=== PATIENT | female | born 1940 | race Caucasian/White ===

== ENCOUNTER 2022-07-08 16:50 | Inpatient (IN) | payer OTHER, SELFPAY ==
[2022-07-08] VITALS (46 sets, daily range): BP systolic 132–199; BP diastolic 55–99; PULSE 62–88; RESP 12–38; TEMP 37.1; O2SAT 76–100; BMI 19.3
--- NOTE | 2022-07-08 17:06 | DI.CT.S_ITS ---
PROCEDURE: CT CERVICAL SPINE WO CON INDICATIONS: fall TECHNIQUE: Noncontrast 3 mm thick sections acquired from the skull base to the T4 level. Sagittal and coronal reformats were then constructed. For radiation dose reduction, the following was used: automated exposure control, adjustment of mA and/or kV according to patient size. COMPARISON: [facility], CT, CT FACIAL BONES WO CON, 07/08/2022, 17:11. [facility], CT, CT HEAD/BRAIN WO CON, 07/08/2022, 17:11. FINDINGS: Image quality: This examination is limited by involuntary motion artifact. Bones: No acute appearing fractures or dislocations. Chronic appearing anterior wedge deformities can be seen involving T1, T2, and T3, and T4, with a central compression deformity seen at T5. Visualized superior ribs are intact. There is moderate disc space narrowing seen at C3-C4 and C4-C5, with at least moderate disc space narrowing at C5-C6 and C6-C7. Focal degenerative change is seen involving the C1-C2 interface anteriorly. Soft tissues: Prevertebral soft tissues are normal in thickness. No paravertebral hematomas. No apical pneumothoraces. Atherosclerotic calcification is noted. IMPRESSION: No acute fractures are seen. Several chronic appearing fractures can be seen within the visualized upper thoracic spine. Dictated by: Eber Hill M.D. on 07/08/2022 at 17:05 Approved by: Eber Hill M.D. on 07/08/2022 at 17:08
--- NOTE | 2022-07-08 17:06 | DI.CT.S_ITS ---
PROCEDURE: CT FACIAL BONES WO CON INDICATIONS: fall TECHNIQUE: Noncontrast 2.5 mm thick axial images acquired from the mandible through the frontal sinuses, with coronal and sagittal reformatting. For radiation dose reduction, the following was used: automated exposure control, adjustment of mA and/or kV according to patient size. COMPARISON: [facility], CT, CT HEAD/BRAIN WO CON, 07/08/2022, 17:11. [facility], CT, CT CERVICAL SPINE WO CON, 07/08/2022, 17:11. FINDINGS: Image quality: This examination is limited by involuntary motion artifact. Bones and teeth: Orbital llanes are intact. Sinus llanes show no fracture or deformity. Nasal bones and septum are intact. Visualized portions of the mandible demonstrate no fractures or subluxation. Zygomatic arches are intact. Pterygoid plates are intact. Visualized portions of the skull base and auditory canals are intact. Sinuses: Paranasal sinuses are aerated, without fluid levels, mucosal thickening, or mucoceles. Mastoid air cells are aerated. Soft tissues: No edema, masses, or fluid collections. No enlarged lymph nodes. No soft tissue lacerations or debris. Vascular: Visualized vascular structures appear normal in the absence of contrast. Bony vascular foramina and canals are intact. IMPRESSION: No displaced facial bone fracture is seen. Dictated by: Eber Hill M.D. on 07/08/2022 at 17:08 Approved by: Eber Hill M.D. on 07/08/2022 at 17:09
--- NOTE | 2022-07-08 17:06 | DI.CT.S_ITS ---
PROCEDURE: CT HEAD/BRAIN WO CON INDICATIONS: fall TECHNIQUE: Noncontrast 4.5 mm thick angled axial sections acquired from the foramen magnum to the vertex, with coronal and sagittal reformats. For radiation dose reduction, the following was used: automated exposure control, adjustment of mA and/or kV according to patient size. COMPARISON: [facility], CT, CT FACIAL BONES WO CON, 07/08/2022, 17:11. [facility], CT, CT CERVICAL SPINE WO CON, 07/08/2022, 17:11. FINDINGS: Image quality: Mild streak artifact can be seen through the skull base. This examination is limited by involuntary motion artifact. CSF spaces: Basal cisterns are patent. No extra-axial fluid collections. The ventricles are symmetric in size and shape. Brain: No intracranial bleeds or masses. There is cerebral volume loss for age, with resultant ventricular and sulcal prominence. There are periventricular and deep white matter chronic small vessel ischemic changes. There is intracranial internal carotid artery atherosclerosis. Skull and face: Calvarium and visualized facial bones appear intact, without suspicious lesions. Sinuses: Visualized sinuses and mastoids are clear. IMPRESSION: No acute intracranial hemorrhage is seen. No acute intracranial process is seen. Dictated by: Eber Hill M.D. on 07/08/2022 at 17:09 Approved by: Eber Hill M.D. on 07/08/2022 at 17:10
--- NOTE | 2022-07-08 17:06 | DI.RAD.S_ITS ---
PROCEDURE: XR PELVIS 1-2V INDICATIONS: fall TECHNIQUE: 1 view(s) of the pelvis acquired. COMPARISON: None. FINDINGS: Bones: No fractures or dislocations. No suspicious bony lesions. Soft tissues: Visualized bowel gas pattern is normal. No suspicious soft tissue calcifications. IMPRESSION: No acute fracture. No osseous lesion. If symptoms and/or clinical suspicion for pathology persist, further assessment with repeat, or advanced imaging (e.g., CT, MRI, or bone scan) may be helpful for further assessment. Dictated by: Maryann Rosenthal M.D. on 07/08/2022 at 18:00 Approved by: Maryann Rosenthal M.D. on 07/08/2022 at 18:00
--- NOTE | 2022-07-08 17:07 | DI.RAD.S_ITS ---
PROCEDURE: XR CHEST 1V INDICATIONS: fall TECHNIQUE: One view of the chest was acquired. COMPARISON: None. FINDINGS: Surgical changes and devices: None. Lungs and pleura: Mild diffuse reticulonodular pulmonary opacity. No pleural effusions or pneumothorax. Mediastinum: Mediastinal contours appear normal. Heart size is normal. Bones and chest wall: No suspicious bony lesions. Overlying soft tissues appear unremarkable. IMPRESSION: Mild atypical pneumonia. Dictated by: Maryann Rosenthal M.D. on 07/08/2022 at 18:01 Approved by: Maryann Rosenthal M.D. on 07/08/2022 at 18:01
--- NOTE | 2022-07-08 17:14 | DI.RAD.S_ITS ---
PROCEDURE: XR SHOULDER RT MIN 2V INDICATIONS: fall TECHNIQUE: 2 views of the shoulder were acquired. COMPARISON: None. FINDINGS: Bones: Mildly displaced humeral neck fracture. Soft tissues: No suspicious soft tissue calcifications. IMPRESSION: Mildly displaced humeral neck fracture. Dictated by: Maryann Rosenthal M.D. on 07/08/2022 at 18:00 Approved by: Maryann Rosenthal M.D. on 07/08/2022 at 18:01
[2022-07-08] MEDS: NALOXONE 1 MG/ML SYRINGE 2 MG (18:31)
[2022-07-08] MEDS: ONDANSETRON 4 MG/2 ML INJ (18:31)
[2022-07-08] MEDS: SODIUM CHLORIDE 0.9% 1,000 ML 150 ML IV (18:31)
[2022-07-08 18:37] LABS: Add Manual Diff / Slide Review NO; Basophils Absolute Auto 0 /uL (0-100); Basophils Percent Auto 0.2 % (0-2); Eosinophils Absolute Auto 0 /uL (0-450); Eosinophils Percent Auto 0.2 % (2-4); Hematocrit 41.3 % (36-46); Hemoglobin 14.2 g/dL (12.0-16.0); Lymphocytes Absolute Auto 1400 /uL (1100-4500); Lymphocytes Percent Auto 9.2 % (25-40); Mean Corpuscular HGB Conc 34.3 % (30-36); Mean Corpuscular Hemoglobin 31.7 PG (26-34); Mean Corpuscular Volume 92.2 fL (80-100); Monocytes Absolute Auto 800 /uL (0-900); Neutrophils Absolute Auto 13200 /uL (1500-7000); Neutrophils Percent Auto 85.4 % (50-75); Platelet Count 174 X10^3/uL (150-400); Red Blood Cell Count 4.48 X10^6/uL (4.0-5.2); Red Cell Distribution Width 12.5 % (11.6-14.8); White Blood Cell Count 15.5 X10^3/uL (4.5-11.0)
[2022-07-08 18:48] LABS: Prothrombin Time 11.8 SECONDS (10.1-12.7)
[2022-07-08 18:50] LABS: PTT Partial Thromboplastin Tim 29 SECONDS (26-36)
[2022-07-08 18:51] LABS: Lactate (Lactic Acid) 1.5 mmol/L (0.7-2.1)
[2022-07-08 18:52] LABS: Alanine Aminotransferase 28 IU/L (<35); Albumin 4.2 g/dL (3.5-5.0); Albumin Globulin Ratio 1.1 (1.0-2.8); Alkaline Phosphatase 105 U/L (38-126); Aspartate Aminotransferase 38 IU/L (14-36); BUN Creatinine Ratio 41.1 (6-22); Bilirubin Total 0.5 mg/dL (0.2-1.3); Blood Urea Nitrogen 30 mg/dL (7-17); Calcium 9.7 mg/dL (8.4-10.2); Carbon Dioxide 30 mmol/L (22-32); Chloride 93 mmol/L (98-107); Creatine Kinase 100 U/L (30-135); Estimated Glomerular Filt Rate > 60 mL/min (>60); Globulin 3.9 g/dL (1.7-4.1); Glucose 127 mg/dL (80-110); HEMOLYSIS < 15 (0-50); Lipase 163 U/L (23-300); Potassium 3.3 mmol/L (3.4-5.1); Sodium 132 mmol/L (137-145); Total Protein 8.1 g/dL (6.3-8.2)
--- NOTE | 2022-07-08 18:59 | ED.FALL ---
HPI - Fall <Tatyana Donahue, DO - Last Filed: 07/11/22 07:55> General Chief Complaint: Fall Stated Complaint: GLF, hit face Time Seen by Provider: 07/08/22 17:06 History of Present Illness HPI Narrative: Patient is a 81-year-old female history of some dementia, hypothyroid hypertension presents today after a fall. states he did not see it happened but he hurt it he thinks she was getting up from the table when she must have slipped and fallen onto her right side. He found her face down he was able to help roll over and call 911. EMS did give her some fentanyl, she is responsive but appears to have some difficulty breathing. Complaining on pain of her right shoulder. No other pain. reports that she was in her normal state of health this morning. She has a chronic cough which is induced by taking her pills with cold water he does not report that she is had any worsening cough. He does not say she is had fever. No other symptoms. Patient is able follow commands but not able to provide history Related Data Home Medications Medication Instructions Recorded Confirmed ascorbic acid (vitamin C) 500 mg 1,000 mg PO QDAY ##0 05/12/16 07/09/22 tablet calcium carbonate 500 mg calcium 1 tab PO BEDTIME ##0 05/12/16 07/09/22 (1,250 mg) tablet cholecalciferol (vitamin D3) 25 1,000 unit PO BEDTIME ##0 05/12/16 07/09/22 mcg (1,000 unit) tablet (Vitamin D3) estradiol 1 mg tablet 1 mg PO DIRECTED ##0 05/12/16 07/09/22 hydrochlorothiazide 25 mg tablet 25 mg PO QDAY ##0 05/12/16 07/09/22 levothyroxine 13 mcg capsule 100 mcg PO DAILY ##0 05/12/16 07/09/22 (Tirosint) Centrum Women 3 tab DAILY 07/09/22 07/09/22 Tylenol 1,000 mg DAILY 07/09/22 07/09/22 Tylenol 500 mg BEDTIME 07/09/22 07/09/22 metoprolol succinate 25 mg 25 mg PO DAILY 07/09/22 07/09/22 tablet,extended release 24 hr Allergies Allergy/AdvReac Type Severity Reaction Status Date / Time mercury (elemental) Allergy Unknown Verified 07/09/22 01:34 [MERCURY (ELEMENTAL)] Penicillins [PENICILLINS] Allergy Unknown Verified 07/09/22 01:34 Review of Systems <DO Abraham Monterroso Last Filed: 07/11/22 07:55> Review of Systems ROS Unobtainable: All systems reviewed & are unremarkable except as noted in HPI and below Patient History <DO Abraham Monterroso Last Filed: 07/11/22 07:55> Medical History (Updated 07/09/22 @ 00:58 by EDWIGE Teresa-SAMI) Dementia Essential hypertension Hyperlipidemia Hypothyroidism (acquired) Surgical History History of cataract removal with insertion of prosthetic lens S/P total abdominal hysterectomy and bilateral salpingo-oophorectomy Status post breast biopsy Social History household members: spouse Smoking Status: Former smoker alcohol intake: never Exam <Tatyana Donahue DO - Last Filed: 07/11/22 07:55> Initial Vital Signs Initial Vital Signs: Vital Signs Pulse Rate 70 07/08/22 17:07 Respiratory Rate 16 07/08/22 17:07 GENERAL: Alert elderly female and in no acute distress. HEENT: Head atraumatic,EOMI, pupils reactive, face symmetric, moist mucous membranes CARDIOVASCULAR: Regular rate and rhythm without murmurs, rubs or gallops. RESPIRATORY: Slightly coarse breath sounds at bases no respiratory distress ABDOMEN: Soft, nontender. Normoactive bowel sounds all 4 quadrants. No guarding or rebound. EXTREMITIES: Normal range of motion, no clubbing or edema. Neurovascularly intact Right humerus looks like deformity no clavicle step-off distal radial pulse intact moving fingers NEUROLOGICAL: Follows commands able to lift each leg off gurney, director financial systems strength equal bilaterally SKIN: Warm, dry, no laceration, no petechiae, no rashes or lesions. <Yo Givens DO - Last Filed: 07/09/22 00:57> Initial Vital Signs Initial Vital Signs: Vital Signs Pulse Rate 70 07/08/22 17:07 Respiratory Rate 16 07/08/22 17:07 Course <DO Abraham Monterroso Last Filed: 07/11/22 07:55> Orders Ordered: Acetaminophen (Acetaminophen 325 Mg Tablet) 650 mg PO Q6H PRN PRN Reason: Fever/Mild Pain (1-3) Albuterol/Ipratropium (Albuterol/Ipratropium 3 Ml Ampul) 3 ml INH [id number] [facility] Last Admin: 07/10/22 23:46 Dose: Not Given Documented By: Admin: 07/10/22 20:06 Dose: 3 ml Documented By: WVikki Admin: 07/10/22 15:56 Dose: Not Given Documented By: Admin: 07/10/22 12:24 Dose: Not Given Documented By: Admin: 07/10/22 08:02 Dose: Not Given Documented By: Admin: 07/09/22 23:32 Dose: 3 ml Documented By: Admin: 07/09/22 19:53 Dose: 3 ml Documented By: Admin: 07/09/22 16:08 Dose: 3 ml Documented By: Admin: 07/09/22 11:20 Dose: 3 ml Documented By: Admin: 07/09/22 07:38 Dose: 3 ml Documented By: GIBSON Benzonatate (Benzonatate 100 Mg Capsule) 100 mg PO TID PRN PRN Reason: Cough Enoxaparin Sodium (Enoxaparin 40 Mg/0.4 Ml Syringe) 40 mg SUBCUT DAILY [facility] Last Admin: 07/10/22 15:55 Dose: Not Given Documented By: BT Guaifenesin/Codeine Phosphate (Codeine/Guaifenesin Liquid 5ml Udc) 5 ml PO Q6H PRN PRN Reason: Cough Hydromorphone HCl (Hydromorphone 0.5 Mg Inj) 0.5 mg IV Q4H PRN PRN Reason: Pain, Moderate (4-6) Last Admin: 07/11/22 01:20 Dose: 0.5 mg Documented By: Admin: 07/10/22 11:57 Dose: 0.5 mg Documented By: Admin: 07/09/22 23:42 Dose: 0.5 mg Documented By: Admin: 07/09/22 19:42 Dose: 0.5 mg Documented By: Admin: 07/09/22 14:23 Dose: 0.5 mg Documented By: PATTI Levofloxacin (Levaquin) 750 mg in 150 mls @ 100 mls/hr IV Q48H [facility] Stop: 07/13/22 06:29 Last Admin: 07/11/22 05:22 Dose: 100 mls/hr Documented By: NICHO Levothyroxine Sodium (Levothyroxine 100 Mcg Tablet) 100 mcg PO 0600 [facility] Last Admin: 07/11/22 05:23 Dose: 100 mcg Documented By: Admin: 07/10/22 08:02 Dose: Not Given Documented By: CHEPE Lorazepam (Lorazepam 2 Mg/Ml Inj) 0.5 mg IV Q4HR PRN PRN Reason: Anxiety Metoprolol Succinate (Metoprolol Er 25 Mg Tablet) 25 mg PO BID [facility] Last Admin: 07/11/22 05:23 Dose: 25 mg Documented By: NICHO Naloxone HCl (Naloxone 0.4 Mg/Ml Vial) 0.2 mg IV Q2MIN PRN PRN Reason: Opiate Reversal Ondansetron HCl (Ondansetron 4 Mg/2 Ml Inj) 4 mg IV Q8HR PRN PRN Reason: Nausea And Vomiting Oxycodone/Acetaminophen (Oxycodone/Acetaminophen 5/325 Tablet) 1 tab PO Q6HR PRN PRN Reason: Pain, Moderate (4-6) Last Admin: 07/10/22 09:58 Dose: 1 tab Documented By: CHEPE Sennosides (Sennosides 8.6 Mg Tablet) 17.2 mg PO BEDTIME [facility] Last Admin: 07/10/22 21:35 Dose: Not Given Documented By: Admin: 07/09/22 23:02 Dose: 17.2 mg Documented By: VIRGIL Discontinued Medications Sodium Chloride (Normal Saline 0.9%) 1,000 mls @ 150 mls/hr IV CONT [facility] Last Infusion: 07/10/22 18:42 Dose: 150 mls/hr Documented By: Admin: 07/10/22 09:56 Dose: 150 mls/hr Documented By: Infusion: 07/09/22 01:36 Dose: 0 mls/hr Documented By: Admin: 07/08/22 18:31 Dose: 150 mls/hr Documented By: SLOAN Ceftriaxone Sodium 2,000 mg/ (Sodium Chloride) 100 mls @ 200 mls/hr IV NOW ONE Stop: 07/08/22 20:49 Last Infusion: 07/08/22 22:47 Dose: 0 mls/hr Documented By: Admin: 07/08/22 22:14 Dose: 200 mls/hr Documented By: JAC Azithromycin 500 mg/ Dextrose 250 mls @ 250 mls/hr IV NOW ONE Stop: 07/08/22 20:49 Last Infusion: 07/08/22 22:14 Dose: 0 mls/hr Documented By: Admin: 07/08/22 21:05 Dose: 250 mls/hr Documented By: JAC POTASSIUM CHLORIDE IN WATER (Potassium Cl 10 Meq/100 Ml Dorinda) 10 meq in 100 mls @ 100 mls/hr IV Q1H [facility] Stop: 07/09/22 04:14 Last Admin: 07/09/22 08:56 Dose: Not Given Documented By: Admin: 07/09/22 07:10 Dose: 100 mls/hr Documented By: Infusion: 07/09/22 06:54 Dose: 100 mls/hr Documented By: Admin: 07/09/22 05:54 Dose: 100 mls/hr Documented By: Infusion: 07/09/22 05:38 Dose: 100 mls/hr Documented By: Admin: 07/09/22 04:38 Dose: 100 mls/hr Documented By: JAC Magnesium Sulfate (Magnesium Sulfate) 4 gm in 100 mls @ 25 mls/hr IV NOW ONE Stop: 07/09/22 04:06 Last Infusion: 07/09/22 05:50 Dose: 0 mls/hr Documented By: JAC Co-signed By: SASKIA Admin: 07/09/22 01:49 Dose: 25 mls/hr Documented By: JAC Co-signed By: NATACHA Sodium Chloride (Normal Saline 0.9%) 1,000 mls @ 100 mls/hr IV CONT [facility] Last Infusion: 07/10/22 09:56 Dose: 100 mls/hr Documented By: Admin: 07/09/22 23:43 Dose: 100 mls/hr Documented By: Infusion: 07/09/22 23:43 Dose: 100 mls/hr Documented By: Admin: 07/09/22 15:50 Dose: 100 mls/hr Documented By: Infusion: 07/09/22 11:36 Dose: 100 mls/hr Documented By: Admin: 07/09/22 01:36 Dose: 100 mls/hr Documented By: JAC Levofloxacin (Levaquin) 750 mg in 150 mls @ 100 mls/hr IV Q24H [facility] Last Infusion: 07/09/22 06:43 Dose: 0 mls/hr Documented By: Admin: 07/09/22 04:45 Dose: 100 mls/hr Documented By: JAC POTASSIUM CHLORIDE IN WATER (Potassium Cl 10 Meq/100 Ml Dorinda) 10 meq in 100 mls @ 100 mls/hr IV Q1H [facility] Stop: 07/09/22 08:59 Last Admin: 07/09/22 08:56 Dose: Not Given Documented By: Admin: 07/09/22 06:11 Dose: Not Given Documented By: Admin: 07/09/22 06:11 Dose: Not Given Documented By: JAC Lorazepam (Lorazepam 0.5 Mg Tablet) 0.5 mg PO Q6HR PRN PRN Reason: Anxiety Lorazepam (Lorazepam 2 Mg/Ml Inj) 1 mg IV Q4HR PRN PRN Reason: Anxiety Methylprednisolone (Methylprednisolone 125 Mg/2 Ml Vial) 125 mg IV NOW ONE Stop: 07/09/22 00:34 Last Admin: 07/09/22 04:32 Dose: 125 mg Documented By: JAC Metoprolol Succinate (Metoprolol Er 25 Mg Tablet) 25 mg PO DAILY [facility] Last Admin: 07/10/22 09:53 Dose: 25 mg Documented By: CHEPE Potassium Chloride (Potassium Chloride 20 Meq Tab) 40 meq PO NOW ONE Stop: 07/09/22 00:08 Last Admin: 07/09/22 04:37 Dose: Not Given Documented By: JAC Prednisone (Prednisone 20 Mg Tablet) 50 mg PO DAILY [facility] Stop: 07/16/22 08:59 Last Admin: 07/09/22 10:57 Dose: Not Given Documented By: SLOAN(2) Vital Signs Vital signs: Vital Signs - 8 hr 07/08/22 18:00 07/08/22 17:07 07/08/22 17:50 Temperature 98.7 F Pulse Rate 78 70 68 Respiratory Rate 20 16 Blood Pressure 199/99 H Pulse Oximetry 96 91 Oxygen Delivery Method Room Air Oxygen Flow Rate 07/08/22 17:53 07/08/22 17:53 07/08/22 17:56 Temperature Pulse Rate 70 Respiratory Rate Blood Pressure 190/80 H 173/77 H Pulse Oximetry 91 Oxygen Delivery Method Oxygen Flow Rate 07/08/22 17:56 07/08/22 18:00 07/08/22 18:00 Temperature Pulse Rate 69 68 Respiratory Rate Blood Pressure 160/67 H Pulse Oximetry 91 91 Oxygen Delivery Method Oxygen Flow Rate 07/08/22 18:05 07/08/22 18:05 07/08/22 18:10 Temperature Pulse Rate 63 Respiratory Rate Blood Pressure 153/70 H 173/74 H Pulse Oximetry 92 Oxygen Delivery Method Oxygen Flow Rate 07/08/22 18:10 07/08/22 18:15 07/08/22 18:15 Temperature Pulse Rate 62 64 Respiratory Rate Blood Pressure 166/72 H Pulse Oximetry 91 91 Oxygen Delivery Method Oxygen Flow Rate 07/08/22 18:20 07/08/22 18:20 07/08/22 18:25 Temperature Pulse Rate 64 Respiratory Rate Blood Pressure 171/72 H 164/70 H Pulse Oximetry 91 Oxygen Delivery Method Oxygen Flow Rate 07/08/22 18:25 07/08/22 18:30 07/08/22 18:30 Temperature Pulse Rate 62 63 Respiratory Rate Blood Pressure 157/70 H Pulse Oximetry 76 L 96 Oxygen Delivery Method Room Air Non -Rebreather Oxygen Flow Rate 15 07/08/22 18:35 07/08/22 18:35 07/08/22 18:45 Temperature Pulse Rate 65 Respiratory Rate Blood Pressure 180/74 H 176/72 H Pulse Oximetry 100 Oxygen Delivery Method Non -Rebreather Oxygen Flow Rate 12 07/08/22 18:45 07/08/22 18:50 07/08/22 18:50 Temperature Pulse Rate 65 65 Respiratory Rate Blood Pressure 182/76 H Pulse Oximetry 100 100 Oxygen Delivery Method Non -Rebreather Non -Rebreather Oxygen Flow Rate 12 12 07/08/22 18:55 07/08/22 18:55 07/08/22 19:00 Temperature Pulse Rate 64 Respiratory Rate Blood Pressure 179/76 H 178/76 H Pulse Oximetry 96 Oxygen Delivery Method Nasal Cannula Oxygen Flow Rate 6 07/08/22 19:00 07/08/22 19:05 07/08/22 19:05 Temperature Pulse Rate 66 66 Respiratory Rate Blood Pressure 160/70 H Pulse Oximetry 95 95 Oxygen Delivery Method Nasal Cannula Nasal Cannula Oxygen Flow Rate 4 4 07/08/22 19:10 07/08/22 19:10 07/08/22 19:15 Temperature Pulse Rate 69 67 Respiratory Rate Blood Pressure 159/71 H Pulse Oximetry 95 Oxygen Delivery Method Nasal Cannula Oxygen Flow Rate 4 07/08/22 19:15 07/08/22 19:20 07/08/22 19:20 Temperature Pulse Rate 68 Respiratory Rate Blood Pressure 162/72 H 157/67 H Pulse Oximetry 96 Oxygen Delivery Method Oxygen Flow Rate 07/08/22 19:25 07/08/22 19:25 07/08/22 19:30 Temperature Pulse Rate 69 Respiratory Rate Blood Pressure 159/69 H 174/74 H Pulse Oximetry 96 Oxygen Delivery Method Oxygen Flow Rate 07/08/22 19:30 07/08/22 19:36 07/08/22 19:36 Temperature Pulse Rate 75 84 Respiratory Rate Blood Pressure 177/76 H Pulse Oximetry 92 90 L Oxygen Delivery Method Oxygen Flow Rate 07/08/22 19:40 07/08/22 19:40 07/08/22 19:45 Temperature Pulse Rate 73 Respiratory Rate Blood Pressure 182/77 H 170/76 H Pulse Oximetry 92 Oxygen Delivery Method Oxygen Flow Rate 07/08/22 19:45 07/08/22 19:50 07/08/22 19:50 Temperature Pulse Rate 75 74 Respiratory Rate Blood Pressure 144/65 H Pulse Oximetry 90 L 87 L Oxygen Delivery Method Oxygen Flow Rate 07/08/22 19:55 07/08/22 19:55 07/08/22 20:00 Temperature Pulse Rate 70 Respiratory Rate Blood Pressure 157/67 H 144/62 H Pulse Oximetry 90 L Oxygen Delivery Method Oxygen Flow Rate 07/08/22 20:00 07/08/22 20:05 07/08/22 20:05 Temperature Pulse Rate 71 76 Respiratory Rate Blood Pressure 156/70 H Pulse Oximetry 89 L 88 L Oxygen Delivery Method Oxygen Flow Rate 07/08/22 20:10 07/08/22 20:10 07/08/22 20:15 Temperature Pulse Rate 73 Respiratory Rate Blood Pressure 139/55 L 137/64 Pulse Oximetry 86 L Oxygen Delivery Method Oxygen Flow Rate 07/08/22 20:15 07/08/22 20:20 07/08/22 20:20 Temperature Pulse Rate 74 74 Respiratory Rate Blood Pressure 137/63 Pulse Oximetry 87 L 87 L Oxygen Delivery Method Oxygen Flow Rate 07/08/22 20:25 07/08/22 20:25 07/08/22 20:30 Temperature Pulse Rate 75 74 Respiratory Rate Blood Pressure 140/64 Pulse Oximetry 86 L 88 L Oxygen Delivery Method Oxygen Flow Rate 07/08/22 20:34 07/08/22 20:34 07/08/22 20:40 Temperature Pulse Rate 76 Respiratory Rate Blood Pressure 155/68 H 142/67 H Pulse Oximetry 89 L Oxygen Delivery Method Oxygen Flow Rate 07/08/22 20:40 07/08/22 21:00 07/08/22 21:30 Temperature Pulse Rate 71 71 84 Respiratory Rate 29 H 35 H Blood Pressure Pulse Oximetry 88 L 86 L 99 Oxygen Delivery Method Nasal Cannula Non -Rebreather Oxygen Flow Rate 6 15 07/08/22 22:00 07/08/22 22:30 Temperature Pulse Rate 87 88 Respiratory Rate 17 38 H Blood Pressure Pulse Oximetry 100 99 Oxygen Delivery Method Non -Rebreather Oxygen Flow Rate 15 <Yo Givens, DO - Last Filed: 07/09/22 00:57> Orders Ordered: Acetaminophen (Acetaminophen 325 Mg Tablet) 650 mg PO Q6H PRN PRN Reason: Fever/Mild Pain (1-3) Albuterol/Ipratropium (Albuterol/Ipratropium 3 Ml Ampul) 3 ml INH [id number] [facility] Last Admin: 07/10/22 23:46 Dose: Not Given Documented By: Admin: 07/10/22 20:06 Dose: 3 ml Documented By: WVikki Admin: 07/10/22 15:56 Dose: Not Given Documented By: Admin: 07/10/22 12:24 Dose: Not Given Documented By: Admin: 07/10/22 08:02 Dose: Not Given Documented By: Admin: 07/09/22 23:32 Dose: 3 ml Documented By: Admin: 07/09/22 19:53 Dose: 3 ml Documented By: Admin: 07/09/22 16:08 Dose: 3 ml Documented By: Admin: 07/09/22 11:20 Dose: 3 ml Documented By: Admin: 07/09/22 07:38 Dose: 3 ml Documented By: NL Benzonatate (Benzonatate 100 Mg Capsule) 100 mg PO TID PRN PRN Reason: Cough Enoxaparin Sodium (Enoxaparin 40 Mg/0.4 Ml Syringe) 40 mg SUBCUT DAILY [facility] Last Admin: 07/10/22 15:55 Dose: Not Given Documented By: CHEPE Guaifenesin/Codeine Phosphate (Codeine/Guaifenesin Liquid 5ml Udc) 5 ml PO Q6H PRN PRN Reason: Cough Hydromorphone HCl (Hydromorphone 0.5 Mg Inj) 0.5 mg IV Q4H PRN PRN Reason: Pain, Moderate (4-6) Last Admin: 07/11/22 01:20 Dose: 0.5 mg Documented By: Admin: 07/10/22 11:57 Dose: 0.5 mg Documented By: Admin: 07/09/22 23:42 Dose: 0.5 mg Documented By: Admin: 07/09/22 19:42 Dose: 0.5 mg Documented By: Admin: 07/09/22 14:23 Dose: 0.5 mg Documented By: PATTI Levofloxacin (Levaquin) 750 mg in 150 mls @ 100 mls/hr IV Q48H [facility] Stop: 07/13/22 06:29 Last Admin: 07/11/22 05:22 Dose: 100 mls/hr Documented By: NICHO Levothyroxine Sodium (Levothyroxine 100 Mcg Tablet) 100 mcg PO 0600 [facility] Last Admin: 07/11/22 05:23 Dose: 100 mcg Documented By: Admin: 07/10/22 08:02 Dose: Not Given Documented By: CHEPE Lorazepam (Lorazepam 2 Mg/Ml Inj) 0.5 mg IV Q4HR PRN PRN Reason: Anxiety Metoprolol Succinate (Metoprolol Er 25 Mg Tablet) 25 mg PO BID [facility] Last Admin: 07/11/22 05:23 Dose: 25 mg Documented By: NICHO Naloxone HCl (Naloxone 0.4 Mg/Ml Vial) 0.2 mg IV Q2MIN PRN PRN Reason: Opiate Reversal Ondansetron HCl (Ondansetron 4 Mg/2 Ml Inj) 4 mg IV Q8HR PRN PRN Reason: Nausea And Vomiting Oxycodone/Acetaminophen (Oxycodone/Acetaminophen 5/325 Tablet) 1 tab PO Q6HR PRN PRN Reason: Pain, Moderate (4-6) Last Admin: 07/10/22 09:58 Dose: 1 tab Documented By: CHEPE Sennosides (Sennosides 8.6 Mg Tablet) 17.2 mg PO BEDTIME [facility] Last Admin: 07/10/22 21:35 Dose: Not Given Documented By: Admin: 07/09/22 23:02 Dose: 17.2 mg Documented By: VIRGIL Discontinued Medications Sodium Chloride (Normal Saline 0.9%) 1,000 mls @ 150 mls/hr IV CONT [facility] Last Infusion: 07/10/22 18:42 Dose: 150 mls/hr Documented By: Admin: 07/10/22 09:56 Dose: 150 mls/hr Documented By: Infusion: 07/09/22 01:36 Dose: 0 mls/hr Documented By: Admin: 07/08/22 18:31 Dose: 150 mls/hr Documented By: SLOAN Ceftriaxone Sodium 2,000 mg/ (Sodium Chloride) 100 mls @ 200 mls/hr IV NOW ONE Stop: 07/08/22 20:49 Last Infusion: 07/08/22 22:47 Dose: 0 mls/hr Documented By: Admin: 07/08/22 22:14 Dose: 200 mls/hr Documented By: JAC Azithromycin 500 mg/ Dextrose 250 mls @ 250 mls/hr IV NOW ONE Stop: 07/08/22 20:49 Last Infusion: 07/08/22 22:14 Dose: 0 mls/hr Documented By: Admin: 07/08/22 21:05 Dose: 250 mls/hr Documented By: JAC POTASSIUM CHLORIDE IN WATER (Potassium Cl 10 Meq/100 Ml Dorinda) 10 meq in 100 mls @ 100 mls/hr IV Q1H [facility] Stop: 07/09/22 04:14 Last Admin: 07/09/22 08:56 Dose: Not Given Documented By: Admin: 07/09/22 07:10 Dose: 100 mls/hr Documented By: Infusion: 07/09/22 06:54 Dose: 100 mls/hr Documented By: Admin: 07/09/22 05:54 Dose: 100 mls/hr Documented By: Infusion: 07/09/22 05:38 Dose: 100 mls/hr Documented By: Admin: 07/09/22 04:38 Dose: 100 mls/hr Documented By: JAC Magnesium Sulfate (Magnesium Sulfate) 4 gm in 100 mls @ 25 mls/hr IV NOW ONE Stop: 07/09/22 04:06 Last Infusion: 07/09/22 05:50 Dose: 0 mls/hr Documented By: JAC Co-signed By: SASKIA Admin: 07/09/22 01:49 Dose: 25 mls/hr Documented By: JAC Co-signed By: NATACHA Sodium Chloride (Normal Saline 0.9%) 1,000 mls @ 100 mls/hr IV CONT [facility] Last Infusion: 07/10/22 09:56 Dose: 100 mls/hr Documented By: Admin: 07/09/22 23:43 Dose: 100 mls/hr Documented By: Infusion: 07/09/22 23:43 Dose: 100 mls/hr Documented By: Admin: 07/09/22 15:50 Dose: 100 mls/hr Documented By: Infusion: 07/09/22 11:36 Dose: 100 mls/hr Documented By: Admin: 07/09/22 01:36 Dose: 100 mls/hr Documented By: JAC Levofloxacin (Levaquin) 750 mg in 150 mls @ 100 mls/hr IV Q24H [facility] Last Infusion: 07/09/22 06:43 Dose: 0 mls/hr Documented By: Admin: 07/09/22 04:45 Dose: 100 mls/hr Documented By: JAC POTASSIUM CHLORIDE IN WATER (Potassium Cl 10 Meq/100 Ml Dorinda) 10 meq in 100 mls @ 100 mls/hr IV Q1H [facility] Stop: 07/09/22 08:59 Last Admin: 07/09/22 08:56 Dose: Not Given Documented By: Admin: 07/09/22 06:11 Dose: Not Given Documented By: Admin: 07/09/22 06:11 Dose: Not Given Documented By: JAC Lorazepam (Lorazepam 0.5 Mg Tablet) 0.5 mg PO Q6HR PRN PRN Reason: Anxiety Lorazepam (Lorazepam 2 Mg/Ml Inj) 1 mg IV Q4HR PRN PRN Reason: Anxiety Methylprednisolone (Methylprednisolone 125 Mg/2 Ml Vial) 125 mg IV NOW ONE Stop: 07/09/22 00:34 Last Admin: 07/09/22 04:32 Dose: 125 mg Documented By: JAC Metoprolol Succinate (Metoprolol Er 25 Mg Tablet) 25 mg PO DAILY [facility] Last Admin: 07/10/22 09:53 Dose: 25 mg Documented By: CHEPE Potassium Chloride (Potassium Chloride 20 Meq Tab) 40 meq PO NOW ONE Stop: 07/09/22 00:08 Last Admin: 07/09/22 04:37 Dose: Not Given Documented By: JAC Prednisone (Prednisone 20 Mg Tablet) 50 mg PO DAILY [facility] Stop: 07/16/22 08:59 Last Admin: 07/09/22 10:57 Dose: Not Given Documented By: SLOAN(2) Vital Signs Vital signs: Vital Signs - 8 hr 07/08/22 18:00 07/08/22 17:07 07/08/22 17:50 Temperature 98.7 F Pulse Rate 78 70 68 Respiratory Rate 20 16 Blood Pressure 199/99 H Pulse Oximetry 96 91 Oxygen Delivery Method Room Air Oxygen Flow Rate 07/08/22 17:53 07/08/22 17:53 07/08/22 17:56 Temperature Pulse Rate 70 Respiratory Rate Blood Pressure 190/80 H 173/77 H Pulse Oximetry 91 Oxygen Delivery Method Oxygen Flow Rate 07/08/22 17:56 07/08/22 18:00 07/08/22 18:00 Temperature Pulse Rate 69 68 Respiratory Rate Blood Pressure 160/67 H Pulse Oximetry 91 91 Oxygen Delivery Method Oxygen Flow Rate 07/08/22 18:05 07/08/22 18:05 07/08/22 18:10 Temperature Pulse Rate 63 Respiratory Rate Blood Pressure 153/70 H 173/74 H Pulse Oximetry 92 Oxygen Delivery Method Oxygen Flow Rate 07/08/22 18:10 07/08/22 18:15 07/08/22 18:15 Temperature Pulse Rate 62 64 Respiratory Rate Blood Pressure 166/72 H Pulse Oximetry 91 91 Oxygen Delivery Method Oxygen Flow Rate 07/08/22 18:20 07/08/22 18:20 07/08/22 18:25 Temperature Pulse Rate 64 Respiratory Rate Blood Pressure 171/72 H 164/70 H Pulse Oximetry 91 Oxygen Delivery Method Oxygen Flow Rate 07/08/22 18:25 07/08/22 18:30 07/08/22 18:30 Temperature Pulse Rate 62 63 Respiratory Rate Blood Pressure 157/70 H Pulse Oximetry 76 L 96 Oxygen Delivery Method Room Air Non -Rebreather Oxygen Flow Rate 15 07/08/22 18:35 07/08/22 18:35 07/08/22 18:45 Temperature Pulse Rate 65 Respiratory Rate Blood Pressure 180/74 H 176/72 H Pulse Oximetry 100 Oxygen Delivery Method Non -Rebreather Oxygen Flow Rate 12 07/08/22 18:45 07/08/22 18:50 07/08/22 18:50 Temperature Pulse Rate 65 65 Respiratory Rate Blood Pressure 182/76 H Pulse Oximetry 100 100 Oxygen Delivery Method Non -Rebreather Non -Rebreather Oxygen Flow Rate 12 12 07/08/22 18:55 07/08/22 18:55 07/08/22 19:00 Temperature Pulse Rate 64 Respiratory Rate Blood Pressure 179/76 H 178/76 H Pulse Oximetry 96 Oxygen Delivery Method Nasal Cannula Oxygen Flow Rate 6 07/08/22 19:00 07/08/22 19:05 07/08/22 19:05 Temperature Pulse Rate 66 66 Respiratory Rate Blood Pressure 160/70 H Pulse Oximetry 95 95 Oxygen Delivery Method Nasal Cannula Nasal Cannula Oxygen Flow Rate 4 4 07/08/22 19:10 07/08/22 19:10 07/08/22 19:15 Temperature Pulse Rate 69 67 Respiratory Rate Blood Pressure 159/71 H Pulse Oximetry 95 Oxygen Delivery Method Nasal Cannula Oxygen Flow Rate 4 07/08/22 19:15 07/08/22 19:20 07/08/22 19:20 Temperature Pulse Rate 68 Respiratory Rate Blood Pressure 162/72 H 157/67 H Pulse Oximetry 96 Oxygen Delivery Method Oxygen Flow Rate 07/08/22 19:25 07/08/22 19:25 07/08/22 19:30 Temperature Pulse Rate 69 Respiratory Rate Blood Pressure 159/69 H 174/74 H Pulse Oximetry 96 Oxygen Delivery Method Oxygen Flow Rate 07/08/22 19:30 07/08/22 19:36 07/08/22 19:36 Temperature Pulse Rate 75 84 Respiratory Rate Blood Pressure 177/76 H Pulse Oximetry 92 90 L Oxygen Delivery Method Oxygen Flow Rate 07/08/22 19:40 07/08/22 19:40 07/08/22 19:45 Temperature Pulse Rate 73 Respiratory Rate Blood Pressure 182/77 H 170/76 H Pulse Oximetry 92 Oxygen Delivery Method Oxygen Flow Rate 07/08/22 19:45 07/08/22 19:50 07/08/22 19:50 Temperature Pulse Rate 75 74 Respiratory Rate Blood Pressure 144/65 H Pulse Oximetry 90 L 87 L Oxygen Delivery Method Oxygen Flow Rate 07/08/22 19:55 07/08/22 19:55 07/08/22 20:00 Temperature Pulse Rate 70 Respiratory Rate Blood Pressure 157/67 H 144/62 H Pulse Oximetry 90 L Oxygen Delivery Method Oxygen Flow Rate 07/08/22 20:00 07/08/22 20:05 07/08/22 20:05 Temperature Pulse Rate 71 76 Respiratory Rate Blood Pressure 156/70 H Pulse Oximetry 89 L 88 L Oxygen Delivery Method Oxygen Flow Rate 07/08/22 20:10 07/08/22 20:10 07/08/22 20:15 Temperature Pulse Rate 73 Respiratory Rate Blood Pressure 139/55 L 137/64 Pulse Oximetry 86 L Oxygen Delivery Method Oxygen Flow Rate 07/08/22 20:15 07/08/22 20:20 07/08/22 20:20 Temperature Pulse Rate 74 74 Respiratory Rate Blood Pressure 137/63 Pulse Oximetry 87 L 87 L Oxygen Delivery Method Oxygen Flow Rate 07/08/22 20:25 07/08/22 20:25 07/08/22 20:30 Temperature Pulse Rate 75 74 Respiratory Rate Blood Pressure 140/64 Pulse Oximetry 86 L 88 L Oxygen Delivery Method Oxygen Flow Rate 07/08/22 20:34 07/08/22 20:34 07/08/22 20:40 Temperature Pulse Rate 76 Respiratory Rate Blood Pressure 155/68 H 142/67 H Pulse Oximetry 89 L Oxygen Delivery Method Oxygen Flow Rate 07/08/22 20:40 07/08/22 21:00 07/08/22 21:30 Temperature Pulse Rate 71 71 84 Respiratory Rate 29 H 35 H Blood Pressure Pulse Oximetry 88 L 86 L 99 Oxygen Delivery Method Nasal Cannula Non -Rebreather Oxygen Flow Rate 6 15 07/08/22 22:00 07/08/22 22:30 Temperature Pulse Rate 87 88 Respiratory Rate 17 38 H Blood Pressure Pulse Oximetry 100 99 Oxygen Delivery Method Non -Rebreather Oxygen Flow Rate 15 MDM - Fall <Tatyana Donahue, DO - Last Filed: 07/11/22 07:55> Lab Data Result diagrams: 07/11/22 05:29 07/11/22 05:29 Labs: Lab Results 07/08/22 07/08/22 07/08/22 Range/Units 18:22 18:22 18:22 WBC 15.5 H (4.5-11.0) X10^3/uL RBC 4.48 (4.0-5.2) X10^6/uL Hgb 14.2 (12.0-16.0) g/dL Hct 41.3 (36-46) % MCV 92.2 (80-100) fL MCH 31.7 (26-34) PG MCHC 34.3 (30-36) % RDW 12.5 (11.6-14.8) % Plt Count 174 (150-400) X10^3/uL Neut % (Auto) 85.4 H (50-75) % Lymph % (Auto) 9.2 L (25-40) % [place] % (Auto) 5.0 (3-14) % Eos % (Auto) 0.2 L (2-4) % Baso % (Auto) 0.2 (0-2) % Neut # (Auto) 47670 H (3441-8035) /uL Lymph # (Auto) 1400 (3723-9807) /uL [place] # (Auto) 800 (0-900) /uL Eos # (Auto) 0 (0-450) /uL Baso # (Auto) 0 (0-100) /uL PT 11.8 (10.1-12.7) SECONDS INR 1.0 (0.9-1.3) APTT 29 (26-36) SECONDS D-Dimer (<500) ng/ml Sodium 132 L (137-145) mmol/L Potassium 3.3 L (3.4-5.1) mmol/L Chloride 93 L (98-107) mmol/L Carbon Dioxide 30 (22-32) mmol/L BUN 30 H (7-17) mg/dL Creatinine 0.73 (0.52-1.04) mg/dL Estimated GFR > 60 (>60) mL/min BUN/Creatinine Ratio 41.1 H (6-22) Glucose 127 H (80-110) mg/dL Lactate (0.7-2.1) mmol/L Calcium 9.7 (8.4-10.2) mg/dL Total Bilirubin 0.5 (0.2-1.3) mg/dL AST 38 H (14-36) IU/L ALT 28 (<35) IU/L Alkaline Phosphatase 105 (38-126) U/L Total Creatine Kinase 100 (30-135) U/L CK-MB (CK-2) TNP CK-MB (CK-2) Rel Index TNP Troponin I < 0.012 (0.01-0.034) ng/mL NT-Pro-B Natriuret Pep (<450) pg/mL Total Protein 8.1 (6.3-8.2) g/dL Albumin 4.2 (3.5-5.0) g/dL Globulin 3.9 (1.7-4.1) g/dL Albumin/Globulin Ratio 1.1 (1.0-2.8) Lipase 163 (23-300) U/L Procalcitonin (<0.5) ng/mL SARS-CoV-2 (PCR) (Negative) Influenza A (RT-PCR) (NEGATIVE) Influenza B (RT-PCR) (NEGATIVE) RSV (PCR) (Negative) 07/08/22 07/08/22 07/08/22 Range/Units 18:22 18:22 18:22 WBC (4.5-11.0) X10^3/uL RBC (4.0-5.2) X10^6/uL Hgb (12.0-16.0) g/dL Hct (36-46) % MCV (80-100) fL MCH (26-34) PG MCHC (30-36) % RDW (11.6-14.8) % Plt Count (150-400) X10^3/uL Neut % (Auto) (50-75) % Lymph % (Auto) (25-40) % [place] % (Auto) (3-14) % Eos % (Auto) (2-4) % Baso % (Auto) (0-2) % Neut # (Auto) (2982-6547) /uL Lymph # (Auto) (2135-6663) /uL [place] # (Auto) (0-900) /uL Eos # (Auto) (0-450) /uL Baso # (Auto) (0-100) /uL PT (10.1-12.7) SECONDS INR (0.9-1.3) APTT (26-36) SECONDS D-Dimer 4545 H (<500) ng/ml Sodium (137-145) mmol/L Potassium (3.4-5.1) mmol/L Chloride (98-107) mmol/L Carbon Dioxide (22-32) mmol/L BUN (7-17) mg/dL Creatinine (0.52-1.04) mg/dL Estimated GFR (>60) mL/min BUN/Creatinine Ratio (6-22) Glucose (80-110) mg/dL Lactate 1.5 (0.7-2.1) mmol/L Calcium (8.4-10.2) mg/dL Total Bilirubin (0.2-1.3) mg/dL AST (14-36) IU/L ALT (<35) IU/L Alkaline Phosphatase (38-126) U/L Total Creatine Kinase (30-135) U/L CK-MB (CK-2) CK-MB (CK-2) Rel Index Troponin I (0.01-0.034) ng/mL NT-Pro-B Natriuret Pep (<450) pg/mL Total Protein (6.3-8.2) g/dL Albumin (3.5-5.0) g/dL Globulin (1.7-4.1) g/dL Albumin/Globulin Ratio (1.0-2.8) Lipase (23-300) U/L Procalcitonin 0.05 (<0.5) ng/mL SARS-CoV-2 (PCR) (Negative) Influenza A (RT-PCR) (NEGATIVE) Influenza B (RT-PCR) (NEGATIVE) RSV (PCR) (Negative) 07/08/22 07/08/22 Range/Units 18:22 19:06 WBC (4.5-11.0) X10^3/uL RBC (4.0-5.2) X10^6/uL Hgb (12.0-16.0) g/dL Hct (36-46) % MCV (80-100) fL MCH (26-34) PG MCHC (30-36) % RDW (11.6-14.8) % Plt Count (150-400) X10^3/uL Neut % (Auto) (50-75) % Lymph % (Auto) (25-40) % [place] % (Auto) (3-14) % Eos % (Auto) (2-4) % Baso % (Auto) (0-2) % Neut # (Auto) (9522-2191) /uL Lymph # (Auto) (5447-2653) /uL [place] # (Auto) (0-900) /uL Eos # (Auto) (0-450) /uL Baso # (Auto) (0-100) /uL PT (10.1-12.7) SECONDS INR (0.9-1.3) APTT (26-36) SECONDS D-Dimer (<500) ng/ml Sodium (137-145) mmol/L Potassium (3.4-5.1) mmol/L Chloride (98-107) mmol/L Carbon Dioxide (22-32) mmol/L BUN (7-17) mg/dL Creatinine (0.52-1.04) mg/dL Estimated GFR (>60) mL/min BUN/Creatinine Ratio (6-22) Glucose (80-110) mg/dL Lactate (0.7-2.1) mmol/L Calcium (8.4-10.2) mg/dL Total Bilirubin (0.2-1.3) mg/dL AST (14-36) IU/L ALT (<35) IU/L Alkaline Phosphatase (38-126) U/L Total Creatine Kinase (30-135) U/L CK-MB (CK-2) CK-MB (CK-2) Rel Index Troponin I (0.01-0.034) ng/mL NT-Pro-B Natriuret Pep 221 (<450) pg/mL Total Protein (6.3-8.2) g/dL Albumin (3.5-5.0) g/dL Globulin (1.7-4.1) g/dL Albumin/Globulin Ratio (1.0-2.8) Lipase (23-300) U/L Procalcitonin (<0.5) ng/mL SARS-CoV-2 (PCR) Negative (Negative) Influenza A (RT-PCR) Flu a negative (NEGATIVE) Influenza B (RT-PCR) Flu b negative (NEGATIVE) RSV (PCR) Negative (Negative) Urine Dip Bedside Urine Glucose Negative Bedside Urine Bilirubin - Negative Bedside Urine Ketone - Negative Urine Specific Monette 1.015 Bedside Urine Occult Blood - Negative Bedside Urine Protein +/- 15 Bedside Urine Urobilinogen - Negative Bedside Urine Nitrite - Negative Bedside Urine Leukocytes - Negative Esterase Imaging Data Chest x-ray: Radiologist's Impression: XRay Report Signed Patient: Keyona Tran MR#: [id number] : 1940 Acct:[id number] Age/Sex: 81 / F Date of Service: 07/08/22 Loc: ED Accession Number: [id number] ?? Procedure: XR chest 1V Ordering Provider: Tatyana Donahue D.O. PROCEDURE:? XR CHEST 1V ? INDICATIONS:? fall ? TECHNIQUE:? One view of the chest was acquired.? ? COMPARISON:? None. ? FINDINGS:? ? Surgical changes and devices:? None.? ? Lungs and pleura:? Mild diffuse reticulonodular pulmonary opacity.? No pleural effusions or pneumothorax.? ? Mediastinum:? Mediastinal contours appear normal.? Heart size is normal.? ? Bones and chest wall:? No suspicious bony lesions.? Overlying soft tissues appear unremarkable.? ? IMPRESSION:? Mild atypical pneumonia. ? ? Dictated by: Maryann Rosenthal M.D. on 07/08/2022 at 18:01 ? ? Extremity x-ray #1: Radiologist's Impression: XRay Report Signed Patient: Keyona Tran MR#: [id number] : 1940 Acct:[id number] Age/Sex: 81 / F Date of Service: 07/08/22 Loc: ED Accession Number: [id number] ?? Procedure: XR chest 1V Ordering Provider: Tatyana Donahue D.O. PROCEDURE:? XR CHEST 1V ? INDICATIONS:? fall ? TECHNIQUE:? One view of the chest was acquired.? ? COMPARISON:? None. ? FINDINGS:? ? Surgical changes and devices:? None.? ? Lungs and pleura:? Mild diffuse reticulonodular pulmonary opacity.? No pleural effusions or pneumothorax.? ? Mediastinum:? Mediastinal contours appear normal.? Heart size is normal.? ? Bones and chest wall:? No suspicious bony lesions.? Overlying soft tissues appear unremarkable.? ? IMPRESSION:? Mild atypical pneumonia. ? ? Dictated by: Maryann Rosenthal M.D. on 07/08/2022 at 18:01 ? ? CT - cervical spine: Radiologist's Impression: Signed Patient: Keyona Tran MR#: [id number] : 1940 Acct:[id number] Age/Sex: 81 / F Date of Service: 07/08/22 Loc: ED Accession Number: [id number] ?? Procedure: CT cervical spine wo con Ordering Provider: Tatyana Donahue D.O. PROCEDURE:? CT CERVICAL SPINE WO CON ? INDICATIONS:? fall ? TECHNIQUE:? Noncontrast 3 mm thick sections acquired from the skull base to the T4 level.? Sagittal and coronal reformats were then constructed.? For radiation dose reduction, the following was used:? automated exposure control, adjustment of mA and/or kV according to patient size.? ? COMPARISON:? [facility], CT, CT FACIAL BONES WO CON, 07/08/2022, 17:11.? [facility], CT, CT HEAD/BRAIN WO CON, 07/08/2022, 17:11. ? FINDINGS:? Image quality:? This examination is limited by involuntary motion artifact.? ? Bones:? No acute appearing fractures or dislocations.? Chronic appearing anterior wedge deformities can be seen involving T1, T2, and T3, and T4, with a central compression deformity seen at T5.? Visualized superior ribs are intact.? ? There is moderate disc space narrowing seen at C3-C4 and C4-C5, with at least moderate disc space narrowing at C5-C6 and C6-C7. Focal degenerative change is seen involving the C1-C2 interface anteriorly.? ? Soft tissues:? Prevertebral soft tissues are normal in thickness.? No paravertebral hematomas.? No apical pneumothoraces.? Atherosclerotic calcification is noted.? ? ? IMPRESSION:? No acute fractures are seen. ? Several chronic appearing fractures can be seen within the visualized upper thoracic spine. ? ? ? Dictated by: Eber Hill M.D. on 07/08/2022 at 17:05 ? ? CT scan - head: Radiologist's Impression: Signed Patient: Keyona Tran MR#: [id number] : 1940 Acct:[id number] Age/Sex: 81 / F Date of Service: 07/08/22 Loc: ED Accession Number: [id number] ?? Procedure: CT head/brain wo con Ordering Provider: Tatyana Donahue D.O. PROCEDURE:? CT HEAD/BRAIN WO CON ? INDICATIONS:? fall ? TECHNIQUE:? Noncontrast 4.5 mm thick angled axial sections acquired from the foramen magnum to the vertex, with coronal and sagittal reformats.? For radiation dose reduction, the following was used:? automated exposure control, adjustment of mA and/or kV according to patient size.? ? COMPARISON:? [facility], CT, CT FACIAL BONES WO CON, 07/08/2022, 17:11.? [facility], CT, CT CERVICAL SPINE WO CON, 07/08/2022, 17:11. ? FINDINGS:? Image quality:? Mild streak artifact can be seen through the skull base. This examination is limited by involuntary motion artifact.? ? CSF spaces:? Basal cisterns are patent.? No extra-axial fluid collections.? The ventricles are symmetric in size and shape.? ? Brain:? No intracranial bleeds or masses.? There is cerebral volume loss for age, with resultant ventricular and sulcal prominence.? There are periventricular and deep white matter chronic small vessel ischemic changes.? There is intracranial internal carotid artery atherosclerosis.? ? Skull and face:? Calvarium and visualized facial bones appear intact, without suspicious lesions.? ? Sinuses:? Visualized sinuses and mastoids are clear.? IMPRESSION:? No acute intracranial hemorrhage is seen.? ? No acute intracranial process is seen.? ? ? Dictated by: Eber Hill M.D. on 07/08/2022 at 17:09 ? ? ct face: Radiologist's Impression: YOGESH Alfonso [id number] CT Scan Report Signed Patient: Keyona Tran MR#: [id number] : 1940 Acct:[id number] Age/Sex: 81 / F Date of Service: 07/08/22 Loc: ED Accession Number: [id number] ?? Procedure: CT facial bones wo con Ordering Provider: Tatyana Donahue D.O. PROCEDURE:? CT FACIAL BONES WO CON ? INDICATIONS:? fall ? TECHNIQUE:? Noncontrast 2.5 mm thick axial images acquired from the mandible through the frontal sinuses, with coronal and sagittal reformatting.? For radiation dose reduction, the following was used:? automated exposure control, adjustment of mA and/or kV according to patient size.? ? COMPARISON:? [facility], CT, CT HEAD/BRAIN WO CON, 07/08/2022, 17:11.? [facility], CT, CT CERVICAL SPINE WO CON, 07/08/2022, 17:11. ? FINDINGS:? Image quality:? This examination is limited by involuntary motion artifact.? ? Bones and teeth:? Orbital llanes are intact.? Sinus llanes show no fracture or deformity.? Nasal bones and septum are intact.? Visualized portions of the mandible demonstrate no fractures or subluxation.? Zygomatic arches are intact.? Pterygoid plates are intact.? Visualized portions of the skull base and auditory canals are intact.? ? Sinuses:? Paranasal sinuses are aerated, without fluid levels, mucosal thickening, or mucoceles.? Mastoid air cells are aerated.? ? Soft tissues:? No edema, masses, or fluid collections.? No enlarged lymph nodes.? No soft tissue lacerations or debris.? ? Vascular:? Visualized vascular structures appear normal in the absence of contrast.? Bony vascular foramina and canals are intact.? IMPRESSION:? No displaced facial bone fracture is seen. ? ? Dictated by: Eber Hill M.D. on 07/08/2022 at 17:08? ECG Data Interpretation: Normal sinus rhythm rate 63 OR interval 140 QRS [address] changes no priors to compare MDM Narrative Medical decision making narrative: Patient is 81-year-old female who presents after a fall. It sounds as though it was a mechanical fall does not report any ill symptoms however she is found have mild leukocytosis of 15 her x-ray does show mild atypical pneumonia. She actually is requiring oxygen. Patient went to CT and her oxygen dropped significantly she was up to 6 L nasal cannula. She was given Narcan and Zofran in the CT room. Patient was responsive Narcan seem to help her a little bit. When she came back from the CT room as she was put on a non-rebreather which has been weaned down to about 2-3 L of nasal cannula. She is found have a right humeral head fracture as well but no other injuries are seen. At this time it is questionable if she does have an atypical pneumonia which is seen on x-ray and leukocytosis causing her hypoxia. does not report a change in behavior or cough. Difficult to determine at this time. She is negative procalcitonin and negative lactic acid. No sign of sepsis. She is able to follow commands. She is overall poor historian complains of only pain in her right shoulder. <Yo Givens, DO - Last Filed: 07/09/22 00:57> Lab Data Labs: Lab Results 07/08/22 07/08/22 07/08/22 Range/Units 18:22 18:22 18:22 WBC 15.5 H (4.5-11.0) X10^3/uL RBC 4.48 (4.0-5.2) X10^6/uL Hgb 14.2 (12.0-16.0) g/dL Hct 41.3 (36-46) % MCV 92.2 (80-100) fL MCH 31.7 (26-34) PG MCHC 34.3 (30-36) % RDW 12.5 (11.6-14.8) % Plt Count 174 (150-400) X10^3/uL Neut % (Auto) 85.4 H (50-75) % Lymph % (Auto) 9.2 L (25-40) % [place] % (Auto) 5.0 (3-14) % Eos % (Auto) 0.2 L (2-4) % Baso % (Auto) 0.2 (0-2) % Neut # (Auto) 16680 H (3399-5556) /uL Lymph # (Auto) 1400 (1503-0177) /uL [place] # (Auto) 800 (0-900) /uL Eos # (Auto) 0 (0-450) /uL Baso # (Auto) 0 (0-100) /uL PT 11.8 (10.1-12.7) SECONDS INR 1.0 (0.9-1.3) APTT 29 (26-36) SECONDS D-Dimer (<500) ng/ml Sodium 132 L (137-145) mmol/L Potassium 3.3 L (3.4-5.1) mmol/L Chloride 93 L (98-107) mmol/L Carbon Dioxide 30 (22-32) mmol/L BUN 30 H (7-17) mg/dL Creatinine 0.73 (0.52-1.04) mg/dL Estimated GFR > 60 (>60) mL/min BUN/Creatinine Ratio 41.1 H (6-22) Glucose 127 H (80-110) mg/dL Lactate (0.7-2.1) mmol/L Calcium 9.7 (8.4-10.2) mg/dL Total Bilirubin 0.5 (0.2-1.3) mg/dL AST 38 H (14-36) IU/L ALT 28 (<35) IU/L Alkaline Phosphatase 105 (38-126) U/L Total Creatine Kinase 100 (30-135) U/L CK-MB (CK-2) TNP CK-MB (CK-2) Rel Index TNP Troponin I < 0.012 (0.01-0.034) ng/mL NT-Pro-B Natriuret Pep (<450) pg/mL Total Protein 8.1 (6.3-8.2) g/dL Albumin 4.2 (3.5-5.0) g/dL Globulin 3.9 (1.7-4.1) g/dL Albumin/Globulin Ratio 1.1 (1.0-2.8) Lipase 163 (23-300) U/L Procalcitonin (<0.5) ng/mL SARS-CoV-2 (PCR) (Negative) Influenza A (RT-PCR) (NEGATIVE) Influenza B (RT-PCR) (NEGATIVE) RSV (PCR) (Negative) 07/08/22 07/08/22 07/08/22 Range/Units 18:22 18:22 18:22 WBC (4.5-11.0) X10^3/uL RBC (4.0-5.2) X10^6/uL Hgb (12.0-16.0) g/dL Hct (36-46) % MCV (80-100) fL MCH (26-34) PG MCHC (30-36) % RDW (11.6-14.8) % Plt Count (150-400) X10^3/uL Neut % (Auto) (50-75) % Lymph % (Auto) (25-40) % [place] % (Auto) (3-14) % Eos % (Auto) (2-4) % Baso % (Auto) (0-2) % Neut # (Auto) (5088-4589) /uL Lymph # (Auto) (5741-9899) /uL [place] # (Auto) (0-900) /uL Eos # (Auto) (0-450) /uL Baso # (Auto) (0-100) /uL PT (10.1-12.7) SECONDS INR (0.9-1.3) APTT (26-36) SECONDS D-Dimer 4545 H (<500) ng/ml Sodium (137-145) mmol/L Potassium (3.4-5.1) mmol/L Chloride (98-107) mmol/L Carbon Dioxide (22-32) mmol/L BUN (7-17) mg/dL Creatinine (0.52-1.04) mg/dL Estimated GFR (>60) mL/min BUN/Creatinine Ratio (6-22) Glucose (80-110) mg/dL Lactate 1.5 (0.7-2.1) mmol/L Calcium (8.4-10.2) mg/dL Total Bilirubin (0.2-1.3) mg/dL AST (14-36) IU/L ALT (<35) IU/L Alkaline Phosphatase (38-126) U/L Total Creatine Kinase (30-135) U/L CK-MB (CK-2) CK-MB (CK-2) Rel Index Troponin I (0.01-0.034) ng/mL NT-Pro-B Natriuret Pep (<450) pg/mL Total Protein (6.3-8.2) g/dL Albumin (3.5-5.0) g/dL Globulin (1.7-4.1) g/dL Albumin/Globulin Ratio (1.0-2.8) Lipase (23-300) U/L Procalcitonin 0.05 (<0.5) ng/mL SARS-CoV-2 (PCR) (Negative) Influenza A (RT-PCR) (NEGATIVE) Influenza B (RT-PCR) (NEGATIVE) RSV (PCR) (Negative) 07/08/22 07/08/22 Range/Units 18:22 19:06 WBC (4.5-11.0) X10^3/uL RBC (4.0-5.2) X10^6/uL Hgb (12.0-16.0) g/dL Hct (36-46) % MCV (80-100) fL MCH (26-34) PG MCHC (30-36) % RDW (11.6-14.8) % Plt Count (150-400) X10^3/uL Neut % (Auto) (50-75) % Lymph % (Auto) (25-40) % [place] % (Auto) (3-14) % Eos % (Auto) (2-4) % Baso % (Auto) (0-2) % Neut # (Auto) (8832-2917) /uL Lymph # (Auto) (3773-6383) /uL [place] # (Auto) (0-900) /uL Eos # (Auto) (0-450) /uL Baso # (Auto) (0-100) /uL PT (10.1-12.7) SECONDS INR (0.9-1.3) APTT (26-36) SECONDS D-Dimer (<500) ng/ml Sodium (137-145) mmol/L Potassium (3.4-5.1) mmol/L Chloride (98-107) mmol/L Carbon Dioxide (22-32) mmol/L BUN (7-17) mg/dL Creatinine (0.52-1.04) mg/dL Estimated GFR (>60) mL/min BUN/Creatinine Ratio (6-22) Glucose (80-110) mg/dL Lactate (0.7-2.1) mmol/L Calcium (8.4-10.2) mg/dL Total Bilirubin (0.2-1.3) mg/dL AST (14-36) IU/L ALT (<35) IU/L Alkaline Phosphatase (38-126) U/L Total Creatine Kinase (30-135) U/L CK-MB (CK-2) CK-MB (CK-2) Rel Index Troponin I (0.01-0.034) ng/mL NT-Pro-B Natriuret Pep 221 (<450) pg/mL Total Protein (6.3-8.2) g/dL Albumin (3.5-5.0) g/dL Globulin (1.7-4.1) g/dL Albumin/Globulin Ratio (1.0-2.8) Lipase (23-300) U/L Procalcitonin (<0.5) ng/mL SARS-CoV-2 (PCR) Negative (Negative) Influenza A (RT-PCR) Flu a negative (NEGATIVE) Influenza B (RT-PCR) Flu b negative (NEGATIVE) RSV (PCR) Negative (Negative) Urine Dip Bedside Urine Glucose Negative Bedside Urine Bilirubin - Negative Bedside Urine Ketone - Negative Urine Specific Monette 1.015 Bedside Urine Occult Blood - Negative Bedside Urine Protein +/- 15 Bedside Urine Urobilinogen - Negative Bedside Urine Nitrite - Negative Bedside Urine Leukocytes - Negative Esterase Imaging Data CT scan - chest: Radiologist's Impression: [address] [address] [address] Scan Report Signed Patient: Keyona Tran MR#: [id number] : 1940 Acct:[id number] Age/Sex: 81 / F Date of Service: 07/08/22 Loc: ED Accession Number: [id number] ?? Procedure: CT angio chest PE protocol Ordering Provider: Tatyana Donahue D.O. PROCEDURE:? CT ANGIO CHEST PE PROTOCOL ? INDICATIONS:? hypoxa very high dimer ? TECHNIQUE:? After the administration of intravenous contrast, 2 mm thick sections acquired from the pulmonary apices to the posterior costophrenic angles.? 3-dimensional maximum intensity projection (MIP) coronal and sagittal reformats were then acquired through the thorax.? For radiation dose reduction, the following was used:? automated exposure control, adjustment of mA and/or kV according to patient size.? ? COMPARISON:? [facility], CR, XR CHEST 1V, 07/08/2022, 17:14. ? FINDINGS:? Image quality:? Excellent.? ? Pulmonary arteries:? Pulmonary arteries are normal in size, and demonstrate no intraluminal filling defects to suggest central pulmonary embolism.? ? Lungs and pleura:? Emphysematous changes are present.? There are several scattered areas of nodularity within the lungs most in the anterior. ? Mediastinum:? Heart size is enlarged without pericardial effusion.? No mediastinal or hilar adenopathy.? Thoracic aorta is normal in caliber and enhancement.? Esophagus is normal in caliber, without hiatal hernia.? ? Bones and chest wall:? No suspicious bony lesions.? Ribs and thoracic spine appear intact throughout.? Thyroid gland is not well visualized.? No axillary or supraclavicular adenopathy.? Pectus deformity is noted. ? Abdomen:? Visualized upper abdominal solid organs appear normal in the early arterial phase of enhancement.? ? IMPRESSION:? ? Scattered areas of nodularity within lungs most notable in the left upper lobe.? It overall has an appearance of infection or inflammation which can be seen in atypical infections including mycobacterial and fungal. ? No pulmonary embolism. ? ? Dictated by: Jeanna Branham M.D. on 07/08/2022 at 21:03 ? ? Approved by: Jeanna Branham M.D. on 07/08/2022 at 21:07?? MDM Narrative Medical decision making narrative: Patient is 81-year-old female who presents after a fall. It sounds as though it was a mechanical fall does not report any ill symptoms however she is found have mild leukocytosis of 15 her x-ray does show mild atypical pneumonia. She actually is requiring oxygen. Patient went to CT and her oxygen dropped significantly she was up to 6 L nasal cannula. She was given Narcan and Zofran in the CT room. Patient was responsive Narcan seem to help her a little bit. When she came back from the CT room as she was put on a non-rebreather which has been weaned down to about 2-3 L of nasal cannula. She is found have a right humeral head fracture as well but no other injuries are seen. At this time it is questionable if she does have an atypical pneumonia which is seen on x-ray and leukocytosis causing her hypoxia. does not report a change in behavior or cough. Difficult to determine at this time. She is negative procalcitonin and negative lactic acid. No sign of sepsis. She is able to follow commands. She is overall poor historian complains of only pain in her right shoulder. Dr givens: Received turned over. Review patient's history and physical and workup up to this point. CT scan of chest shows no signs of pulmonary embolism potentially an infectious source. She has already received antibiotics. Has a known right humeral fracture. Patient is requiring oxygen. Discussed the case with the [employer] Arnold the [facility] hospitalist who will admit for further evaluation and treatment. Discharge Plan Departure Patient Disposition: Admitted As Inpatient Clinical Impression: Pneumonia, Fracture of proximal humerus, Hypoxia, Fall Admit Date/Time: 07/08/22 22:44 Admit Provider: Hayley Barrett
[2022-07-08 19:04] LABS: Troponin I < 0.012 ng/mL (0.01-0.034)
[2022-07-08 19:08] LABS: Procalcitonin 0.05 ng/mL (<0.5)
--- NOTE | 2022-07-08 19:37 | PC.NURSE ---
Addendum entered by Unique Cervantes R.N. 07/08/22 19:49: Airway suctioned til clear. Pt placed on non-rebreather, 12-15ML, 94% O2. Original Note: Patient arrives EMS, given 100 mcg in the EMS [place] truck, pt has poor respiratory effort, poor arousability, fernie arrest, provide made aware to bedside, 1 mg Narcan admin., copious secretions, airway suctioned til clewr
[2022-07-08 19:44] LABS: NT-proBNP (BNP-Adult 18+) 221 pg/mL (<450)
--- NOTE | 2022-07-08 19:48 | PC.NURSE ---
urine specimen obtained with a straight catheter with 600 ml clear urine returned
[2022-07-08 19:50] LABS: D Dimer 4545 ng/ml (<500)
[2022-07-08 20:06] LABS: Influenza A - CEPHEID Flu A NEGATIVE (NEGATIVE); Influenza B - CEPHEID Flu B NEGATIVE (NEGATIVE); Respiratory Syncytial Virus Negative (Negative)
--- NOTE | 2022-07-08 20:07 | PC.NURSE ---
arm sling applied to right arm pt tolerated well
[2022-07-08 20:09] LABS: COVID-19 CEPHEID 4-PLEX PCR Negative (Negative)
--- NOTE | 2022-07-08 20:15 | DI.CT.S_ITS ---
PROCEDURE: CT ANGIO CHEST PE PROTOCOL INDICATIONS: hypoxa very high dimer TECHNIQUE: After the administration of intravenous contrast, 2 mm thick sections acquired from the pulmonary apices to the posterior costophrenic angles. 3-dimensional maximum intensity projection (MIP) coronal and sagittal reformats were then acquired through the thorax. For radiation dose reduction, the following was used: automated exposure control, adjustment of mA and/or kV according to patient size. COMPARISON: [facility], CR, XR CHEST 1V, 07/08/2022, 17:14. FINDINGS: Image quality: Excellent. Pulmonary arteries: Pulmonary arteries are normal in size, and demonstrate no intraluminal filling defects to suggest central pulmonary embolism. Lungs and pleura: Emphysematous changes are present. There are several scattered areas of nodularity within the lungs most in the anterior. Mediastinum: Heart size is enlarged without pericardial effusion. No mediastinal or hilar adenopathy. Thoracic aorta is normal in caliber and enhancement. Esophagus is normal in caliber, without hiatal hernia. Bones and chest wall: No suspicious bony lesions. Ribs and thoracic spine appear intact throughout. Thyroid gland is not well visualized. No axillary or supraclavicular adenopathy. Pectus deformity is noted. Abdomen: Visualized upper abdominal solid organs appear normal in the early arterial phase of enhancement. IMPRESSION: Scattered areas of nodularity within lungs most notable in the left upper lobe. It overall has an appearance of infection or inflammation which can be seen in atypical infections including mycobacterial and fungal. No pulmonary embolism. Dictated by: Jeanna Branham M.D. on 07/08/2022 at 21:03 Approved by: Jeanna Branham M.D. on 07/08/2022 at 21:07
[2022-07-08] MEDS: AZITHROMYCIN 500 MG in DEXTROSE 5% IN WATER 250 ML 250 MG IV (21:05)
--- NOTE | 2022-07-08 21:15 | PC.NURSE ---
unable to maintain O2 sat above 88-89% Dr Givens informed and pt changed to NRB @ 15L
[2022-07-08] MEDS: cefTRIAXone 2,000 MG in SODIUM CHLORIDE 0.9% 100 ML 200 MG IV (22:14)
--- NOTE | 2022-07-08 22:50 | PC.NURSE ---
pt removed sling, blankets and gown states she needs to get up to go to the bathroom, explained to pt she did not need to get out of bed, placed purewick on pt
[2022-07-08 23:41] LABS: Fractionated Inspired Oxygen 50; HCO3 ABG 28 mmol/L (22-26); Oxygen Saturation ABG 99 % (95-100); PCO2 ABG 51.1 mmHg (35-45); PO2 ABG 152 mmHg (80-100); TCO2 ABG 29 mmol/L (21-31); pH ABG 7.34 (7.35-7.45)
[2022-07-08 23:43] LABS: Alanine Aminotransferase 26 IU/L (<35); Albumin 2.7 g/dL (3.5-5.0); Alkaline Phosphatase 57 U/L (38-126); Aspartate Aminotransferase 34 IU/L (14-36); BUN Creatinine Ratio 47.7 (6-22); Bilirubin Total 0.1 mg/dL (0.2-1.3); Blood Urea Nitrogen 21 mg/dL (7-17); C-Reactive Protein Quant < 0.5 mg/dL (<1.0); Carbon Dioxide 21 mmol/L (22-32); Chloride 104 mmol/L (98-107); Estimated Glomerular Filt Rate > 60 mL/min (>60); Globulin 2.8 g/dL (1.7-4.1); Glucose 166 mg/dL (80-110); HEMOLYSIS < 15 (0-50); Magnesium 1.2 mg/dL (1.6-2.3); Sodium 136 mmol/L (137-145); Total Protein 5.5 g/dL (6.3-8.2)
[2022-07-08 23:52] LABS: Troponin I < 0.012 ng/mL (0.01-0.034)
[2022-07-09] VITALS (89 sets, daily range): BP systolic 121–173; BP diastolic 55–81; PULSE 60–108; RESP 11–28; TEMP 36.3–37.4; O2SAT 91–100; BMI 19.5
[2022-07-09] LABS: Calcium 6.4 mg/dL (8.4-10.2); Potassium 2.4 mmol/L (3.4-5.1)
--- NOTE | 2022-07-09 00:06 | PC.NURSE ---
lab results received with K2.4 and Ca 6.4 blood drawn from IV stick above previous IV that had NS infusing. Fluid stopped and lab redrawn for double check
--- NOTE | 2022-07-09 00:14 | PC.NURSE ---
STEPAN Hardy notified of pt's lab results and possible diluted results, will hold meds ordered until repeat cmp results
[2022-07-09 00:24] LABS: Alanine Aminotransferase 33 IU/L (<35); Albumin 3.6 g/dL (3.5-5.0); Albumin Globulin Ratio 1.1 (1.0-2.8); Alkaline Phosphatase 70 U/L (38-126); Aspartate Aminotransferase 43 IU/L (14-36); BUN Creatinine Ratio 40.6 (6-22); Bilirubin Total 0.2 mg/dL (0.2-1.3); Blood Urea Nitrogen 26 mg/dL (7-17); Calcium 8.2 mg/dL (8.4-10.2); Carbon Dioxide 28 mmol/L (22-32); Chloride 96 mmol/L (98-107); Estimated Glomerular Filt Rate > 60 mL/min (>60); Globulin 3.4 g/dL (1.7-4.1); Glucose 157 mg/dL (80-110); HEMOLYSIS < 15 (0-50); Potassium 3.2 mmol/L (3.4-5.1); Sodium 133 mmol/L (137-145)
--- NOTE | 2022-07-09 00:42 | P.HP_ITS ---
History of Present Illness History of Present Illness Date Patient Seen: 07/08/22 Time Patient Seen: 23:30 Chief complaint: GLF, hit face Narrative: Keyona Paredes is an 81-year-old female with a history dementia, hyperthyroidism, hypertension, who presented to the ED following a mechanical fall at home trying to get up from the table in which she fell and hit her face with no loss of consciousness presented to the ED via her complaining of right arm pain. Patient was initially being evaluated for mechanical fall with facial trauma and right humerus fracture, when she was found have mild leukocytosis and cxr showed mild atypical pneumonia and required oxygen.? In CT her oxygen dropped significantly and placed on 6 L nasal cannula, given Narcan and Zofran.? Patient was responsive Narcan seem to help her a little bit.? When she came back from the CT room as she was put on a non-rebreather which has been weaned down to about 2-3 L of nasal cannula.? does not report a change in behavior or cough.? In the emergency department patient also presented with mild hypertension BP 199/99, 190/80, 171/72, O2 saturations on room air dropped to 84-87%. Due to patient's dementia she is unable to participate or provide any HPI, ROS, family history, or surgical history. Patient was only able to tell me her name. At the time of admit temp 98.7?, BP 141/64, HR 68, respiratory rate of 14 patient is currently on heated high-flow at 4 L 50% O2 saturation 100%, was also contacted by the ED the patient had a run of V-tach. ABGs pH 7.342, pCO2 51.1, PO2 152, base excess 2, bicarb 27.7, TCO2 29, O2 saturation 99. WBC 15.5 with a left shift neutrophils 13,200, sodium 132, chloride 93, BUN 30, potassium 3.3, glucose 127-sofa: 2. Procalcitonin and lactate WNL, troponin WNL x2, BNP 221 negative COVID/influenza a/B/RSV. No gap noted. Patient escalated from non- rebreather to heated high-flow and increased respiratory demand repeat labs were done at 12:04 a.m. sodium 133, potassium 3.2, chloride 96, BUN 26, blood sugar 157, calcium 8.2, AST 43. EKG NSR rate [address] changes. Chest x-ray mild atypical pneumonia. Right shoulder x-ray demonstrated mildly displaced humeral neck fracture. C-spine, pelvic x-ray, head CT, and CT of face are all negative for any acute processes or fractures. CTA demonstrated scattered areas of nodularity greatest within the left upper lobe of lung, no PE. Patient admitted to ICU for sepsis without septic shock, acute respiratory failure with hypoxia, atypical pneumonia, mechanical fall with facial trauma, and right humeral fracture. Patient History Medical History (Updated 07/09/22 @ 00:58 by EDWIGE Teresa-SAMI) Dementia Essential hypertension Hyperlipidemia Hypothyroidism (acquired) Surgical History History of cataract removal with insertion of prosthetic lens S/P total abdominal hysterectomy and bilateral salpingo-oophorectomy Status post breast biopsy Family & Social History Family history unavailable: No (Due to patient's dementia) Safety & Behavioral: Feels Safe in Current Yes Environment Been Physically Hurt or No Threatened By a Person Meds Home Medications and Allergies Home Medications Medication Instructions Recorded Confirmed Type ascorbic acid (vitamin C) 500 mg 1,000 mg PO QDAY ##0 05/12/16 07/09/22 History tablet calcium carbonate 500 mg calcium 1 tab PO BEDTIME ##0 05/12/16 07/09/22 History (1,250 mg) tablet cholecalciferol (vitamin D3) 25 1,000 unit PO BEDTIME ##0 05/12/16 07/09/22 Hist ory mcg (1,000 unit) tablet (Vitamin D3) estradiol 1 mg tablet 1 mg PO DIRECTED ##0 05/12/16 07/09/22 History hydrochlorothiazide 25 mg tablet 25 mg PO QDAY ##0 05/12/16 07/09/22 History levothyroxine 13 mcg capsule 100 mcg PO DAILY ##0 05/12/16 07/09/22 History (Tirosint) Centrum Women 3 tab DAILY 07/09/22 07/09/22 History Tylenol 1,000 mg DAILY 07/09/22 07/09/22 History Tylenol 500 mg BEDTIME 07/09/22 07/09/22 History metoprolol succinate 25 mg 25 mg PO DAILY 07/09/22 07/09/22 History tablet,extended release 24 hr Allergies Allergy/AdvReac Type Severity Reaction Status Date / Time mercury (elemental) Allergy Unknown Verified 07/09/22 01:34 [MERCURY (ELEMENTAL)] Penicillins [PENICILLINS] Allergy Unknown Verified 07/09/22 01:34 Review of Systems Review of Systems Narrative: Unable to obtain ROS due to patient's dementia. Exam Vital Signs (past 8 hours): - 07/08/22 18:00 07/08/22 17:07 07/08/22 17:50 Temperature 98.7 F Pulse Rate 78 70 68 Respiratory Rate 20 16 Blood Pressure 199/99 H Pulse Oximetry 96 91 Oxygen Delivery Method Room Air Oxygen Flow Rate 07/08/22 17:53 07/08/22 17:53 07/08/22 17:56 Temperature Pulse Rate 70 Respiratory Rate Blood Pressure 190/80 H 173/77 H Pulse Oximetry 91 Oxygen Delivery Method Oxygen Flow Rate 07/08/22 17:56 07/08/22 18:00 07/08/22 18:00 Temperature Pulse Rate 69 68 Respiratory Rate Blood Pressure 160/67 H Pulse Oximetry 91 91 Oxygen Delivery Method Oxygen Flow Rate 07/08/22 18:05 07/08/22 18:05 07/08/22 18:10 Temperature Pulse Rate 63 Respiratory Rate Blood Pressure 153/70 H 173/74 H Pulse Oximetry 92 Oxygen Delivery Method Oxygen Flow Rate 07/08/22 18:10 07/08/22 18:15 07/08/22 18:15 Temperature Pulse Rate 62 64 Respiratory Rate Blood Pressure 166/72 H Pulse Oximetry 91 91 Oxygen Delivery Method Oxygen Flow Rate 07/08/22 18:20 07/08/22 18:20 07/08/22 18:25 Temperature Pulse Rate 64 Respiratory Rate Blood Pressure 171/72 H 164/70 H Pulse Oximetry 91 Oxygen Delivery Method Oxygen Flow Rate 07/08/22 18:25 07/08/22 18:30 07/08/22 18:30 Temperature Pulse Rate 62 63 Respiratory Rate Blood Pressure 157/70 H Pulse Oximetry 76 L 96 Oxygen Delivery Method Room Air Non -Rebreather Oxygen Flow Rate 15 07/08/22 18:35 07/08/22 18:35 07/08/22 18:45 Temperature Pulse Rate 65 Respiratory Rate Blood Pressure 180/74 H 176/72 H Pulse Oximetry 100 Oxygen Delivery Method Non -Rebreather Oxygen Flow Rate 12 07/08/22 18:45 07/08/22 18:50 07/08/22 18:50 Temperature Pulse Rate 65 65 Respiratory Rate Blood Pressure 182/76 H Pulse Oximetry 100 100 Oxygen Delivery Method Non -Rebreather Non -Rebreather Oxygen Flow Rate 12 12 07/08/22 18:55 07/08/22 18:55 07/08/22 19:00 Temperature Pulse Rate 64 Respiratory Rate Blood Pressure 179/76 H 178/76 H Pulse Oximetry 96 Oxygen Delivery Method Nasal Cannula Oxygen Flow Rate 6 07/08/22 19:00 07/08/22 19:05 07/08/22 19:05 Temperature Pulse Rate 66 66 Respiratory Rate Blood Pressure 160/70 H Pulse Oximetry 95 95 Oxygen Delivery Method Nasal Cannula Nasal Cannula Oxygen Flow Rate 4 4 07/08/22 19:10 07/08/22 19:10 07/08/22 19:15 Temperature Pulse Rate 69 67 Respiratory Rate Blood Pressure 159/71 H Pulse Oximetry 95 Oxygen Delivery Method Nasal Cannula Oxygen Flow Rate 4 07/08/22 19:15 07/08/22 19:20 07/08/22 19:20 Temperature Pulse Rate 68 Respiratory Rate Blood Pressure 162/72 H 157/67 H Pulse Oximetry 96 Oxygen Delivery Method Oxygen Flow Rate 07/08/22 19:25 07/08/22 19:25 07/08/22 19:30 Temperature Pulse Rate 69 Respiratory Rate Blood Pressure 159/69 H 174/74 H Pulse Oximetry 96 Oxygen Delivery Method Oxygen Flow Rate 07/08/22 19:30 07/08/22 19:36 07/08/22 19:36 Temperature Pulse Rate 75 84 Respiratory Rate Blood Pressure 177/76 H Pulse Oximetry 92 90 L Oxygen Delivery Method Oxygen Flow Rate 07/08/22 19:40 07/08/22 19:40 07/08/22 19:45 Temperature Pulse Rate 73 Respiratory Rate Blood Pressure 182/77 H 170/76 H Pulse Oximetry 92 Oxygen Delivery Method Oxygen Flow Rate 07/08/22 19:45 07/08/22 19:50 07/08/22 19:50 Temperature Pulse Rate 75 74 Respiratory Rate Blood Pressure 144/65 H Pulse Oximetry 90 L 87 L Oxygen Delivery Method Oxygen Flow Rate 07/08/22 19:55 07/08/22 19:55 07/08/22 20:00 Temperature Pulse Rate 70 Respiratory Rate Blood Pressure 157/67 H 144/62 H Pulse Oximetry 90 L Oxygen Delivery Method Oxygen Flow Rate 07/08/22 20:00 07/08/22 20:05 07/08/22 20:05 Temperature Pulse Rate 71 76 Respiratory Rate Blood Pressure 156/70 H Pulse Oximetry 89 L 88 L Oxygen Delivery Method Oxygen Flow Rate 07/08/22 20:10 07/08/22 20:10 07/08/22 20:15 Temperature Pulse Rate 73 Respiratory Rate Blood Pressure 139/55 L 137/64 Pulse Oximetry 86 L Oxygen Delivery Method Oxygen Flow Rate 07/08/22 20:15 07/08/22 20:20 07/08/22 20:20 Temperature Pulse Rate 74 74 Respiratory Rate Blood Pressure 137/63 Pulse Oximetry 87 L 87 L Oxygen Delivery Method Oxygen Flow Rate 07/08/22 20:25 07/08/22 20:25 07/08/22 20:30 Temperature Pulse Rate 75 74 Respiratory Rate Blood Pressure 140/64 Pulse Oximetry 86 L 88 L Oxygen Delivery Method Oxygen Flow Rate 07/08/22 20:34 07/08/22 20:34 07/08/22 20:40 Temperature Pulse Rate 76 Respiratory Rate Blood Pressure 155/68 H 142/67 H Pulse Oximetry 89 L Oxygen Delivery Method Oxygen Flow Rate 07/08/22 20:40 07/08/22 21:00 07/08/22 21:30 Temperature Pulse Rate 71 71 84 Respiratory Rate 29 H 35 H Blood Pressure Pulse Oximetry 88 L 86 L 99 Oxygen Delivery Method Nasal Cannula Non -Rebreather Oxygen Flow Rate 6 15 07/08/22 22:00 07/08/22 22:30 07/08/22 23:00 Temperature Pulse Rate 87 88 79 Respiratory Rate 17 38 H 18 Blood Pressure Pulse Oximetry 100 99 100 Oxygen Delivery Method Non -Rebreather Oxygen Flow Rate 15 07/08/22 23:28 07/08/22 23:28 07/08/22 23:30 Temperature Pulse Rate 76 Respiratory Rate 17 Blood Pressure 144/67 H 141/64 H Pulse Oximetry 100 Oxygen Delivery Method Heated High Flow Oxygen Flow Rate 40 07/08/22 23:30 07/08/22 23:18 07/08/22 23:40 Temperature Pulse Rate 68 79 Respiratory Rate 14 20 Blood Pressure 142/67 H 132/60 Pulse Oximetry 100 100 Oxygen Delivery Method Oxygen Flow Rate 07/08/22 23:40 07/08/22 23:50 07/08/22 23:50 Temperature Pulse Rate 71 77 Respiratory Rate 14 12 Blood Pressure 134/64 Pulse Oximetry 100 99 Oxygen Delivery Method High Flow Nasal Cannula Oxygen Flow Rate 07/09/22 00:00 07/09/22 00:00 07/09/22 00:10 Temperature Pulse Rate 71 Respiratory Rate 19 Blood Pressure 133/62 131/63 Pulse Oximetry 100 Oxygen Delivery Method Oxygen Flow Rate 07/09/22 00:10 07/09/22 00:20 07/09/22 00:20 Temperature Pulse Rate 71 72 Respiratory Rate 28 H 28 H Blood Pressure 134/66 Pulse Oximetry 99 100 Oxygen Delivery Method Oxygen Flow Rate Oxygen Delivery Method High Flow Nasal Cannula Oxygen Flow Rate 40 Narrative Exam Narrative: GENERAL:? Alert elderly pleasant significantly demented female, thin frail, in no distress at this time on heated high-flow. HEENT: Head atraumatic,EOMI, pupils reactive, face symmetric, dry mucous membranes, airway is protected. CARDIOVASCULAR: Bradycardic Regular rate and rhythm without murmurs, rubs or gallops. RESPIRATORY:? Auscultated all lung sanchez, Slightly coarse decreased breath sounds at bases left greater than right. ABDOMEN: Soft, nontender.? Normoactive bowel sounds hypoactice all 4 quadrants.? No guarding or rebound. EXTREMITIES: Normal range of motion, no clubbing, deformity, positive bilateral +1 pitting lower ext edema Neurovascularly intact Right humerus looks slightly deformed no clavicle step-off distal radial pulse intact moving fingers NEUROLOGICAL: Able to verbalize her name, unable to follow simple commands, unaware of age, or place. Secondary to dementia SKIN: Warm, dry, no laceration, no petechiae, no rashes or lesions. Lower extremities are extremely dry and flaking. Objective Labs Result Diagrams: 07/08/22 18:22 07/09/22 00:04 Labs: Laboratory Results - last 24 hr 07/08/22 07/08/22 07/08/22 18:22 18: 18:22 WBC 15.5 H RBC 4.48 Hgb 14.2 Hct 41.3 MCV 92.2 MCH 31.7 MCHC 34.3 RDW 12.5 Plt Count 174 Neut % (Auto) 85.4 H Lymph % (Auto) 9.2 L [place] % (Auto) 5.0 Eos % (Auto) 0.2 L Baso % (Auto) 0.2 Neut # (Auto) 11184 H Lymph # (Auto) 1400 [place] # (Auto) 800 Eos # (Auto) 0 Baso # (Auto) 0 PT 11.8 INR 1.0 APTT 29 D-Dimer ABG pH ABG pCO2 ABG pO2 ABG HCO3 ABG Total CO2 ABG O2 Saturation ABG Base Excess FiO2 Sodium 132 L Potassium 3.3 L Chloride 93 L Carbon Dioxide 30 BUN 30 H Creatinine 0.73 Estimated GFR > 60 BUN/Creatinine Ratio 41.1 H Glucose 127 H Lactate Calcium 9.7 Magnesium Total Bilirubin 0.5 AST 38 H ALT 28 Alkaline Phosphatase 105 Total Creatine Kinase 100 CK-MB (CK-2) TNP CK-MB (CK-2) Rel Index TNP Troponin I < 0.012 C-Reactive Protein NT-Pro-B Natriuret Pep Total Protein 8.1 Albumin 4.2 Globulin 3.9 Albumin/Globulin Ratio 1.1 Lipase 163 Procalcitonin SARS-CoV-2 (PCR) Influenza A (RT-PCR) Influenza B (RT-PCR) RSV (PCR) 07/08/22 07/08/22 07/08/22 18:22 18:22 18:22 WBC RBC Hgb Hct MCV MCH MCHC RDW Plt Count Neut % (Auto) Lymph % (Auto) [place] % (Auto) Eos % (Auto) Baso % (Auto) Neut # (Auto) Lymph # (Auto) [place] # (Auto) Eos # (Auto) Baso # (Auto) PT INR APTT D-Dimer 4545 H ABG pH ABG pCO2 ABG pO2 ABG HCO3 ABG Total CO2 ABG O2 Saturation ABG Base Excess FiO2 Sodium Potassium Chloride Carbon Dioxide BUN Creatinine Estimated GFR BUN/Creatinine Ratio Glucose Lactate 1.5 Calcium Magnesium Total Bilirubin AST ALT Alkaline Phosphatase Total Creatine Kinase CK-MB (CK-2) CK-MB (CK-2) Rel Index Troponin I C-Reactive Protein NT-Pro-B Natriuret Pep Total Protein Albumin Globulin Albumin/Globulin Ratio Lipase Procalcitonin 0.05 SARS-CoV-2 (PCR) Influenza A (RT-PCR) Influenza B (RT-PCR) RSV (PCR) 07/08/22 07/08/22 07/08/22 18:22 19:06 23:20 WBC RBC Hgb Hct MCV MCH MCHC RDW Plt Count Neut % (Auto) Lymph % (Auto) [place] % (Auto) Eos % (Auto) Baso % (Auto) Neut # (Auto) Lymph # (Auto) [place] # (Auto) Eos # (Auto) Baso # (Auto) PT INR APTT D-Dimer ABG pH ABG pCO2 ABG pO2 ABG HCO3 ABG Total CO2 ABG O2 Saturation ABG Base Excess FiO2 Sodium 136 L Potassium 2.4 L* Chloride 104 Carbon Dioxide 21 L BUN 21 H Creatinine 0.44 L Estimated GFR > 60 BUN/Creatinine Ratio 47.7 H Glucose 166 H Lactate Calcium 6.4 L* Magnesium 1.2 L Total Bilirubin 0.1 L AST 34 ALT 26 Alkaline Phosphatase 57 Total Creatine Kinase CK-MB (CK-2) CK-MB (CK-2) Rel Index Troponin I < 0.012 C-Reactive Protein < 0.5 NT-Pro-B Natriuret Pep 221 Total Protein 5.5 L Albumin 2.7 L Globulin 2.8 Albumin/Globulin Ratio 1.0 Lipase Procalcitonin SARS-CoV-2 (PCR) Negative Influenza A (RT-PCR) Flu a negative Influenza B (RT-PCR) Flu b negative RSV (PCR) Negative 07/08/22 07/09/22 23:23 00:04 WBC RBC Hgb Hct MCV MCH MCHC RDW Plt Count Neut % (Auto) Lymph % (Auto) [place] % (Auto) Eos % (Auto) Baso % (Auto) Neut # (Auto) Lymph # (Auto) [place] # (Auto) Eos # (Auto) Baso # (Auto) PT INR APTT D-Dimer ABG pH 7.34 L ABG pCO2 51.1 H ABG pO2 152 H ABG HCO3 28 H ABG Total CO2 29 ABG O2 Saturation 99 ABG Base Excess 2.0 FiO2 50 Sodium 133 L Potassium 3.2 L Chloride 96 L Carbon Dioxide 28 BUN 26 H Creatinine 0.64 Estimated GFR > 60 BUN/Creatinine Ratio 40.6 H Glucose 157 H Lactate Calcium 8.2 L Magnesium Total Bilirubin 0.2 AST 43 H ALT 33 Alkaline Phosphatase 70 Total Creatine Kinase CK-MB (CK-2) CK-MB (CK-2) Rel Index Troponin I C-Reactive Protein NT-Pro-B Natriuret Pep Total Protein 7.0 Albumin 3.6 Globulin 3.4 Albumin/Globulin Ratio 1.1 Lipase Procalcitonin SARS-CoV-2 (PCR) Influenza A (RT-PCR) Influenza B (RT-PCR) RSV (PCR) Assessment & Plan Assessment & Plan narrative: Keyona Paredes is an 81-year-old female with a history dementia, hyperthyroidism, hypertension, who presented to the ED following a mechanical fall at home trying to get up from the table in which she fell and hit her face and right shoulder with no loss of consciousness presented to the ED via her complaining of right arm pain. Patient admitted to ICU due to HHF for sepsis without septic shock, acute respiratory failure with hypoxia, atypical pneumonia, mechanical fall with facial trauma, and right humeral fracture. 1. Sepsis without septic shock secondary to acute respiratory failure with hypoxia (respiratory and metabolic acidosis), acute, present on admission -likely secondary to pneumonia. -In ED: O2 saturations on room air dropped to 84-87%. a run of V-tach- noted -On admit temp 98.7?, BP 141/64, HR 68, RR 14, heated high-flow at 4 L 50% O2 saturation 100% -ABGs pH 7.342, pCO2 51.1, PO2 152, base excess 2, bicarb 27.7, TCO2 29, O2 saturation 99. -Patient escalated from non-rebreather to heated high-flow and increased respiratory demand repeat labs were done at 12:04 a.m. sodium 133, potassium 3.2, chloride 96, BUN 26, blood sugar 157, calcium 8.2, AST 43. -Chest x-ray mild atypical pneumonia. -D-dimer 4545-CTA demonstrated scattered areas of nodularity greatest within the left upper lobe of lung, no PE. -WBC 15.5, neutrophils 13,200, Procalcitonin and lactate WNL, negative COVID/influenza a/B/RSV. No gap noted. - sodium 132, chloride 93, BUN 30, potassium 3.3, glucose 127-sofa: 2. - potassium 3.3-ordered 40 mEq -ordered ABG, repeat CMP, Mag, trend troponin x3, CRP -respiratory consult 2. Atypical pneumonia, acute, present on admission -RR 14, heated high-flow at 4 L 50% O2 saturation 100% -although patient's procalcitonin and lactate are within normal limits she does have an elevated white count with left shift, she has no risk factors for MRSA or Pseudomonas: -Based on (up-to-date) CAP-empiric antibiotics for general medical adhikari flow chart will provide respiratory fluoroquinolone: Levaquin -ABGs pH 7.342, pCO2 51.1, PO2 152, base excess 2, bicarb 27.7, TCO2 29, O2 saturation 99. -Patient escalated from non-rebreather to heated high-flow and increased respiratory demand repeat labs were done at 12:04 a.m. sodium 133, potassium 3.2, chloride 96, BUN 26, blood sugar 157, calcium 8.2, AST 43. -Chest x-ray mild atypical pneumonia. -D-dimer 4545-CTA demonstrated scattered areas of nodularity greatest within the left upper lobe of lung, no PE. -symptom management methylprednisone 125 mg once, prednisone q.day, DuoNebs q.4 hours, guaifenesin with codeine, Tessalon Perles, Ativan as needed. -WBC 15.5, neutrophils 13,200, Procalcitonin and lactate WNL, negative COVID/influenza a/B/RSV. No gap noted. 3. Mechanical fall resulting in facial trauma and right humerus fracture, acute, present on admission -Right shoulder x-ray demonstrated mildly displaced humeral neck fracture. -C-spine, pelvic x-ray, head CT, and CT of face are all negative for any acute processes or fractures. -consult placed for Dr. Gallegos orthopedics -pain and comfort management -when I examined patient in the ED she had removed her splint from right arm. -consult ordered for PT/OT/CLUB STEWARD-in regards to discharge placement and safety 4. Dementia, chronic, present on admission -patient takes no known medications, only able to provide her name at the time of admit. 5.Hypothyroidism, acquired, chronic, present on admission -continue levothyroxine -order TSH/T4 6. Hypertension, essential, uncontrolled, acute on chronic, present on admission -continue metoprolol, hold hydrochlorothiazide -In ED BP 199/99, 190/80, 171/72 -On Admit BP 141/64, HR 68 - EKG NSR rate [address] changes. -On tele 7. Malnutrition, moderate,acute on chronic, present on admission -BMI 19.4 -patient's malnutrition places them at high risk for medical and surgical complications because of the severe malnutrition in relation to sepsis with acute hypoxic respiratory failure/pneumonia and in relation to her chronic illness. This increases the difficulty in complexity of medical management and increases the chances poor outcomes such as mortality and morbidity as well as impaired wound healing, and immune suppression. -dietary consult ordered to evaluate and implement steps to improve caloric intake and nutrition. Code status: Multiple attempts were made to contact patient's spouse was unable to reach him -current code status full Surrogate decision maker: Spouse Nigel CANTOR PCR: Negative DVT/VTE prophylaxis:Holding med, SCD only Disposition: Patient admitted to the ICU due to requirement of heated high- flow, patient will require transfer once a bed is available as she still resides in the ED expected length of stay greater than 2 midnights. I have utilized all available immediate resources to obtain, update, or review the patient's current medications. I confirmed that the patient's advanced care plan is present, Code status is documented and/or surrogate decision maker is listed in the patient's medical record. I have personally reviewed patient's chart notes from PCP, specialists, diagnostic imaging, and laboratory, . Time Spent With Patient Critical Care time: I spent a total of [] minutes of critical care time on this patient's care today; this time is exclusive of procedural time.
[2022-07-09 00:55] LABS: C-Reactive Protein Quant < 0.5 mg/dL (<1.0)
[2022-07-09 01:18] LABS: Magnesium 1.5 mg/dL (1.6-2.3)
[2022-07-09] MEDS: SODIUM CHLORIDE 0.9% 1,000 ML 100 ML IV ×3 (01:36→23:43)
[2022-07-09] MEDS: MAGNESIUM SULFATE 4 GM/100 ML PIGGYBACK IV (01:49)
--- NOTE | 2022-07-09 02:27 | PC.NURSE ---
bladder scan 469 per verbal orders STEPAN Hardy pt was straight cathed with a return of 500 ml
--- NOTE | 2022-07-09 02:37 | PC.NURSE ---
sling reapplied and gown placed on pt, warm blankets given
[2022-07-09] MEDS: methylPREDNISolone 125 MG/2 ML VIAL IV (04:32)
[2022-07-09] MEDS: POTASSIUM CHLORIDE IN WATER 10 MEQ/100 ML PIGGYBACK 100 MEQ IV ×3 (04:38→07:10)
[2022-07-09] MEDS: levoFLOXacin 750 MG/150 ML PIGGYBACK 100 MG IV (04:45)
[2022-07-09 06:58] LABS: Add Manual Diff / Slide Review NO; Basophils Absolute Auto 0 /uL (0-100); Basophils Percent Auto 0.1 % (0-2); Eosinophils Absolute Auto 0 /uL (0-450); Eosinophils Percent Auto 0.1 % (2-4); Hematocrit 34.6 % (36-46); Lymphocytes Absolute Auto 700 /uL (1100-4500); Lymphocytes Percent Auto 6.3 % (25-40); Mean Corpuscular HGB Conc 34.5 % (30-36); Mean Corpuscular Hemoglobin 31.2 PG (26-34); Mean Corpuscular Volume 90.4 fL (80-100); Monocytes Absolute Auto 400 /uL (0-900); Monocytes Percent Auto 3.7 % (3-14); Neutrophils Absolute Auto 10600 /uL (1500-7000); Neutrophils Percent Auto 89.8 % (50-75); Platelet Count 160 X10^3/uL (150-400); Red Blood Cell Count 3.83 X10^6/uL (4.0-5.2); Red Cell Distribution Width 12.3 % (11.6-14.8); White Blood Cell Count 11.8 X10^3/uL (4.5-11.0)
[2022-07-09 07:00] LABS: INR 1.1 (0.9-1.3); Prothrombin Time 12.1 SECONDS (10.1-12.7)
[2022-07-09 07:06] LABS: Lactate (Lactic Acid) 1.4 mmol/L (0.7-2.1)
[2022-07-09 07:08] LABS: Alanine Aminotransferase 30 IU/L (<35); Albumin 3.6 g/dL (3.5-5.0); Alkaline Phosphatase 81 U/L (38-126); Aspartate Aminotransferase 40 IU/L (14-36); BUN Creatinine Ratio 45.3 (6-22); Bilirubin Total 0.3 mg/dL (0.2-1.3); Blood Urea Nitrogen 24 mg/dL (7-17); Calcium 8.3 mg/dL (8.4-10.2); Carbon Dioxide 30 mmol/L (22-32); Chloride 94 mmol/L (98-107); Estimated Glomerular Filt Rate > 60 mL/min (>60); Globulin 3.5 g/dL (1.7-4.1); Glucose 137 mg/dL (80-110); HEMOLYSIS < 15 (0-50); Magnesium 2.8 mg/dL (1.6-2.3); Potassium 3.8 mmol/L (3.4-5.1); Sodium 133 mmol/L (137-145); Total Protein 7.1 g/dL (6.3-8.2)
[2022-07-09 07:18] LABS: Troponin I < 0.012 ng/mL (0.01-0.034)
[2022-07-09 07:23] LABS: Procalcitonin 0.15 ng/mL (<0.5)
[2022-07-09] MEDS: ALBUTEROL/IPRATROPIUM 3 ML AMPUL INH ×5 (07:38→23:32)
[2022-07-09 08:08] LABS: TSH w/ Reflex to FT4 4.16 uIU/mL (0.47-4.68)
--- NOTE | 2022-07-09 08:58 | PC.NURSE ---
Spoke with Dr. Westbrook, he requested we stop the potassium. I marked remaining potassium orders as not given per physician order.
--- NOTE | 2022-07-09 09:02 | PC.NURSE ---
Pt placed in soft restraints, spoke with Dr. Westbrook and states he will put in the order. Patient pulling at her oxygen lines, trying to pull out her IVs and kicking at staff.
[2022-07-09 10:35] LABS: PCO2 ABG 46.4 mmHg (35-45); pH ABG 7.36 (7.35-7.45)
[2022-07-09 10:37] LABS: HCO3 ABG 26 mmol/L (22-26); PO2 ABG 33 mmHg (80-100); TCO2 ABG 28 mmol/L (21-31)
[2022-07-09 10:38] LABS: Fractionated Inspired Oxygen 35; Oxygen Saturation ABG 60 % (95-100)
--- NOTE | 2022-07-09 10:49 | PC.NURSE ---
Pt refuses PO meds. IP , Dr Woodard, has been advised, he will change order to IV.
--- NOTE | 2022-07-09 12:51 | PC.NURSE ---
Soft restraints no longer needed.
--- NOTE | 2022-07-09 13:29 | P.PN_ITS ---
Subjective Subjective Date Patient Seen: 07/09/22 Time Patient Seen: 10:00 Interval history: She is confused. Has minimal coughing. She remains on heated high flow, but on low settings. She is not able to provide any history. Her says she has had months of cough. She often coughs when eating. She has had no travel in years. No pets. No known mold. No livestock. Exam Vital Signs (past 8 hours): - 07/09/22 05:30 07/09/22 05:40 07/09/22 05:50 Pulse Rate 84 97 H 89 Respiratory Rate 18 Blood Pressure Pulse Oximetry 94 92 Oxygen Delivery Method Oxygen Flow Rate Fraction of Inspired Oxygen 07/09/22 06:00 07/09/22 06:10 07/09/22 06:20 Pulse Rate 93 H 93 H 84 Respiratory Rate 18 15 Blood Pressure Pulse Oximetry 93 92 96 Oxygen Delivery Method Oxygen Flow Rate Fraction of Inspired Oxygen 07/09/22 06:30 07/09/22 06:40 07/09/22 06:50 Pulse Rate 94 H 91 H 91 H Respiratory Rate Blood Pressure Pulse Oximetry 92 95 94 Oxygen Delivery Method Oxygen Flow Rate Fraction of Inspired Oxygen 07/09/22 07:00 07/09/22 07:10 07/09/22 07:43 Pulse Rate 100 H 81 78 Respiratory Rate 18 Blood Pressure 121/57 L Pulse Oximetry 95 96 96 Oxygen Delivery Method Oxygen Flow Rate Fraction of Inspired Oxygen 07/09/22 07:38 07/09/22 11:05 07/09/22 11:20 Pulse Rate 82 92 H 86 Respiratory Rate 18 20 20 Blood Pressure Pulse Oximetry 96 96 96 Oxygen Delivery Method Oxygen Flow Rate 35 35 Fraction of Inspired Oxygen 35 35 07/09/22 07:20 07/09/22 07:30 07/09/22 07:40 Pulse Rate 83 80 78 Respiratory Rate Blood Pressure Pulse Oximetry 96 94 96 Oxygen Delivery Method Heated High Flow Oxygen Flow Rate Fraction of Inspired Oxygen 07/09/22 07:50 07/09/22 08:00 07/09/22 08:01 Pulse Rate 86 81 Respiratory Rate Blood Pressure 173/81 H Pulse Oximetry 98 95 Oxygen Delivery Method Heated High Flow Oxygen Flow Rate Fraction of Inspired Oxygen 07/09/22 08:01 07/09/22 08:10 07/09/22 08:20 Pulse Rate 87 99 H 91 H Respiratory Rate Blood Pressure Pulse Oximetry 96 96 97 Oxygen Delivery Method Heated High Flow Oxygen Flow Rate Fraction of Inspired Oxygen 07/09/22 08:30 07/09/22 08:40 07/09/22 08:50 Pulse Rate 108 H 97 H 98 H Respiratory Rate Blood Pressure Pulse Oximetry 94 95 92 Oxygen Delivery Method Heated High Flow Oxygen Flow Rate Fraction of Inspired Oxygen 07/09/22 09:00 07/09/22 09:10 07/09/22 09:20 Pulse Rate 99 H 91 H 94 H Respiratory Rate Blood Pressure Pulse Oximetry 92 94 94 Oxygen Delivery Method Oxygen Flow Rate Fraction of Inspired Oxygen 07/09/22 09:30 07/09/22 09:40 07/09/22 09:50 Pulse Rate 91 H 98 H 96 H Respiratory Rate Blood Pressure Pulse Oximetry 96 95 95 Oxygen Delivery Method Heated High Flow Oxygen Flow Rate Fraction of Inspired Oxygen 07/09/22 10:00 07/09/22 10:10 07/09/22 10:20 Pulse Rate 97 H 96 H 91 H Respiratory Rate Blood Pressure Pulse Oximetry 94 96 97 Oxygen Delivery Method Oxygen Flow Rate Fraction of Inspired Oxygen 07/09/22 10:30 07/09/22 10:40 07/09/22 10:50 Pulse Rate 86 86 90 Respiratory Rate Blood Pressure Pulse Oximetry 97 98 98 Oxygen Delivery Method Heated High Flow Oxygen Flow Rate Fraction of Inspired Oxygen 07/09/22 11:00 07/09/22 11:10 07/09/22 11:20 Pulse Rate 91 H 86 86 Respiratory Rate Blood Pressure Pulse Oximetry 97 97 96 Oxygen Delivery Method Oxygen Flow Rate Fraction of Inspired Oxygen 07/09/22 11:30 07/09/22 11:40 07/09/22 11:50 Pulse Rate 91 H 101 H 93 H Respiratory Rate Blood Pressure Pulse Oximetry 94 92 91 Oxygen Delivery Method Heated High Flow Oxygen Flow Rate Fraction of Inspired Oxygen 07/09/22 12:00 07/09/22 12:10 07/09/22 12:20 Pulse Rate 90 88 90 Respiratory Rate Blood Pressure Pulse Oximetry 94 93 99 Oxygen Delivery Method Oximask Oxygen Flow Rate 4 Fraction of Inspired Oxygen 07/09/22 12:23 07/09/22 12:23 07/09/22 12:30 Pulse Rate 91 H 88 Respiratory Rate Blood Pressure 153/74 H Pulse Oximetry 100 100 Oxygen Delivery Method Oximask Oximask Oxygen Flow Rate 4 4 Fraction of Inspired Oxygen Fraction of Inspired Oxygen 35 SaO2/FiO2 Ratio 274 Oxygen Delivery Method Oximask Oxygen Flow Rate 4 Narrative Exam Narrative: GEN: appears in mild respiratory distress, confused CV: regular rate and rhythm, no murmurs PULM: coarse breath sounds bilaterally ABD: soft, nontender, nondistended, no organomegaly EXT: warm and well perfused, R arm in sling NEURO: confused, moving all extremities Objective Labs Result Diagrams: 07/09/22 06:37 07/09/22 06:37 Labs: Laboratory Results - last 24 hr 07/08/22 07/08/22 07/08/22 18:22 18:22 18:22 WBC 15.5 H RBC 4.48 Hgb 14.2 Hct 41.3 MCV 92.2 MCH 31.7 MCHC 34.3 RDW 12.5 Plt Count 174 Neut % (Auto) 85.4 H Lymph % (Auto) 9.2 L Mclean % (Auto) 5.0 Eos % (Auto) 0.2 L Baso % (Auto) 0.2 Neut # (Auto) 46982 H Lymph # (Auto) 1400 Mclean # (Auto) 800 Eos # (Auto) 0 Baso # (Auto) 0 PT 11.8 INR 1.0 APTT 29 D-Dimer ABG pH ABG pCO2 ABG pO2 ABG HCO3 ABG Total CO2 ABG O2 Saturation ABG Base Excess FiO2 Sodium 132 L Potassium 3.3 L Chloride 93 L Carbon Dioxide 30 BUN 30 H Creatinine 0.73 Estimated GFR > 60 BUN/Creatinine Ratio 41.1 H Glucose 127 H Lactate Calcium 9.7 Magnesium Total Bilirubin 0.5 AST 38 H ALT 28 Alkaline Phosphatase 105 Total Creatine Kinase 100 CK-MB (CK-2) TNP CK-MB (CK-2) Rel Index TNP Troponin I < 0.012 C-Reactive Protein NT-Pro-B Natriuret Pep Total Protein 8.1 Albumin 4.2 Globulin 3.9 Albumin/Globulin Ratio 1.1 Lipase 163 Procalcitonin TSH SARS-CoV-2 (PCR) Influenza A (RT-PCR) Influenza B (RT-PCR) RSV (PCR) 07/08/22 07/08/22 07/08/22 18:22 18:22 18:22 WBC RBC Hgb Hct MCV MCH MCHC RDW Plt Count Neut % (Auto) Lymph % (Auto) Mclean % (Auto) Eos % (Auto) Baso % (Auto) Neut # (Auto) Lymph # (Auto) Mclean # (Auto) Eos # (Auto) Baso # (Auto) PT INR APTT D-Dimer 4545 H ABG pH ABG pCO2 ABG pO2 ABG HCO3 ABG Total CO2 ABG O2 Saturation ABG Base Excess FiO2 Sodium Potassium Chloride Carbon Dioxide BUN Creatinine Estimated GFR BUN/Creatinine Ratio Glucose Lactate 1.5 Calcium Magnesium Total Bilirubin AST ALT Alkaline Phosphatase Total Creatine Kinase CK-MB (CK-2) CK-MB (CK-2) Rel Index Troponin I C-Reactive Protein NT-Pro-B Natriuret Pep Total Protein Albumin Globulin Albumin/Globulin Ratio Lipase Procalcitonin 0.05 TSH SARS-CoV-2 (PCR) Influenza A (RT-PCR) Influenza B (RT-PCR) RSV (PCR) 07/08/22 07/08/22 07/08/22 18:22 19:06 23:20 WBC RBC Hgb Hct MCV MCH MCHC RDW Plt Count Neut % (Auto) Lymph % (Auto) Mclean % (Auto) Eos % (Auto) Baso % (Auto) Neut # (Auto) Lymph # (Auto) Mclean # (Auto) Eos # (Auto) Baso # (Auto) PT INR APTT D-Dimer ABG pH ABG pCO2 ABG pO2 ABG HCO3 ABG Total CO2 ABG O2 Saturation ABG Base Excess FiO2 Sodium 136 L Potassium 2.4 L* Chloride 104 Carbon Dioxide 21 L BUN 21 H Creatinine 0.44 L Estimated GFR > 60 BUN/Creatinine Ratio 47.7 H Glucose 166 H Lactate Calcium 6.4 L* Magnesium 1.2 L Total Bilirubin 0.1 L AST 34 ALT 26 Alkaline Phosphatase 57 Total Creatine Kinase CK-MB (CK-2) CK-MB (CK-2) Rel Index Troponin I < 0.012 C-Reactive Protein < 0.5 NT-Pro-B Natriuret Pep 221 Total Protein 5.5 L Albumin 2.7 L Globulin 2.8 Albumin/Globulin Ratio 1.0 Lipase Procalcitonin TSH SARS-CoV-2 (PCR) Negative Influenza A (RT-PCR) Flu a negative Influenza B (RT-PCR) Flu b negative RSV (PCR) Negative 07/08/22 07/09/22 07/09/22 23:23 00:04 00:04 WBC RBC Hgb Hct MCV MCH MCHC RDW Plt Count Neut % (Auto) Lymph % (Auto) Mclean % (Auto) Eos % (Auto) Baso % (Auto) Neut # (Auto) Lymph # (Auto) Mclean # (Auto) Eos # (Auto) Baso # (Auto) PT INR APTT D-Dimer ABG pH 7.34 L ABG pCO2 51.1 H ABG pO2 152 H ABG HCO3 28 H ABG Total CO2 29 ABG O2 Saturation 99 ABG Base Excess 2.0 FiO2 50 Sodium 133 L Potassium 3.2 L Chloride 96 L Carbon Dioxide 28 BUN 26 H Creatinine 0.64 Estimated GFR > 60 BUN/Creatinine Ratio 40.6 H Glucose 157 H Lactate Calcium 8.2 L Magnesium Total Bilirubin 0.2 AST 43 H ALT 33 Alkaline Phosphatase 70 Total Creatine Kinase CK-MB (CK-2) CK-MB (CK-2) Rel Index Troponin I C-Reactive Protein < 0.5 NT-Pro-B Natriuret Pep Total Protein 7.0 Albumin 3.6 Globulin 3.4 Albumin/Globulin Ratio 1.1 Lipase Procalcitonin TSH SARS-CoV-2 (PCR) Influenza A (RT-PCR) Influenza B (RT-PCR) RSV (PCR) 07/09/22 07/09/22 07/09/22 00:04 06:37 06:37 WBC 11.8 H RBC 3.83 L Hgb 12.0 Hct 34.6 L MCV 90.4 MCH 31.2 MCHC 34.5 RDW 12.3 Plt Count 160 Neut % (Auto) 89.8 H Lymph % (Auto) 6.3 L Mclean % (Auto) 3.7 Eos % (Auto) 0.1 L Baso % (Auto) 0.1 Neut # (Auto) 53357 H Lymph # (Auto) 700 L Mclean # (Auto) 400 Eos # (Auto) 0 Baso # (Auto) 0 PT 12.1 INR 1.1 APTT D-Dimer ABG pH ABG pCO2 ABG pO2 ABG HCO3 ABG Total CO2 ABG O2 Saturation ABG Base Excess FiO2 Sodium Potassium Chloride Carbon Dioxide BUN Creatinine Estimated GFR BUN/Creatinine Ratio Glucose Lactate Calcium Magnesium 1.5 L Total Bilirubin AST ALT Alkaline Phosphatase Total Creatine Kinase CK-MB (CK-2) CK-MB (CK-2) Rel Index Troponin I C-Reactive Protein NT-Pro-B Natriuret Pep Total Protein Albumin Globulin Albumin/Globulin Ratio Lipase Procalcitonin TSH SARS-CoV-2 (PCR) Influenza A (RT-PCR) Influenza B (RT-PCR) RSV (PCR) 07/09/22 07/09/22 07/09/22 06:37 06:37 06:37 WBC RBC Hgb Hct MCV MCH MCHC RDW Plt Count Neut % (Auto) Lymph % (Auto) Mclean % (Auto) Eos % (Auto) Baso % (Auto) Neut # (Auto) Lymph # (Auto) Mclean # (Auto) Eos # (Auto) Baso # (Auto) PT INR APTT D-Dimer ABG pH ABG pCO2 ABG pO2 ABG HCO3 ABG Total CO2 ABG O2 Saturation ABG Base Excess FiO2 Sodium 133 L Potassium 3.8 Chloride 94 L Carbon Dioxide 30 BUN 24 H Creatinine 0.53 Estimated GFR > 60 BUN/Creatinine Ratio 45.3 H Glucose 137 H Lactate 1.4 Calcium 8.3 L Magnesium 2.8 H Total Bilirubin 0.3 AST 40 H ALT 30 Alkaline Phosphatase 81 Total Creatine Kinase CK-MB (CK-2) CK-MB (CK-2) Rel Index Troponin I < 0.012 C-Reactive Protein NT-Pro-B Natriuret Pep Total Protein 7.1 Albumin 3.6 Globulin 3.5 Albumin/Globulin Ratio 1.0 Lipase Procalcitonin 0.15 TSH 4.16 SARS-CoV-2 (PCR) Influenza A (RT-PCR) Influenza B (RT-PCR) RSV (PCR) 07/09/22 08:09 WBC RBC Hgb Hct MCV MCH MCHC RDW Plt Count Neut % (Auto) Lymph % (Auto) Mclean % (Auto) Eos % (Auto) Baso % (Auto) Neut # (Auto) Lymph # (Auto) Mclean # (Auto) Eos # (Auto) Baso # (Auto) PT INR APTT D-Dimer ABG pH 7.36 ABG pCO2 46.4 H ABG pO2 33 L* ABG HCO3 26 ABG Total CO2 28 ABG O2 Saturation 60 L* ABG Base Excess 1.0 FiO2 35 Sodium Potassium Chloride Carbon Dioxide BUN Creatinine Estimated GFR BUN/Creatinine Ratio Glucose Lactate Calcium Magnesium Total Bilirubin AST ALT Alkaline Phosphatase Total Creatine Kinase CK-MB (CK-2) CK-MB (CK-2) Rel Index Troponin I C-Reactive Protein NT-Pro-B Natriuret Pep Total Protein Albumin Globulin Albumin/Globulin Ratio Lipase Procalcitonin TSH SARS-CoV-2 (PCR) Influenza A (RT-PCR) Influenza B (RT-PCR) RSV (PCR) [facility] Medical History (Updated 07/09/22 @ 00:58 by EDWIGE Teresa-) Dementia Essential hypertension Hyperlipidemia Hypothyroidism (acquired) Surgical History History of cataract removal with insertion of prosthetic lens S/P total abdominal hysterectomy and bilateral salpingo-oophorectomy Status post breast biopsy Social History household members: spouse Smoking Status: Former smoker alcohol intake: never Assessment & Plan Assessment & Plan narrative: 1. Acute hypoxemic respiratory failure secondary to pneumonia -etiology of pneumonia not certain, appears possibly viral on imaging -she also sound as if she is aspirating -treat for community acquired pneumonia -flu, covid, rsv negative -given apperance other etiologies entertained, but she has no travel recently, no pets, mold, etc -on admission was on heated high flow, now on nasal cannula -wean as able -RT following -sepsis ruled out 2. Mechanical fall resulting in facial trauma and right humerus fractur -Right shoulder x-ray demonstrated mildly displaced humeral neck fracture. -C-spine, pelvic x-ray, head CT, and CT of face are all negative for any acute processes or fractures. -consult placed for Dr. Gallegos orthopedics -pain control right now with IV pain medications -when less confused try oral medications -consult ordered for PT/OT 4. Dementia, chronic, present on admission -patient takes no known medications -ativan prn for agitation, will try to start seroquel once she is able to tolerate oral medications 5.Hypothyroidism -continue levothyroxine -order TSH/T4 6. Hypertension -continue metoprolol, hold hydrochlorothiazide 7. Malnutrition, severe,acute on chronic -BMI 19.4 -patient's malnutrition places them at high risk for medical and surgical complications because of the severe malnutrition in relation to sepsis with acute hypoxic respiratory failure/pneumonia and in relation to her chronic illness. This increases the difficulty in complexity of medical management and increases the chances poor outcomes such as mortality and morbidity as well as impaired wound healing, and immune suppression. -dietary consult ordered to evaluate and implement steps to improve caloric intake and nutrition. CODE: Design Specialist Spent With Patient Critical Care time: I spent a total of [] minutes of critical care time on this patient's care today; this time is exclusive of procedural time. Quality VTE Deep Vein Thrombosis/Pulmonary Embolism Present on Admission: No
[2022-07-09] MEDS: HYDROMORPHONE 0.5 MG INJ IV ×3 (14:23→23:42)
--- NOTE | 2022-07-09 15:00 | PT.IIE ---
Current Diagnoses Sepsis, unspecified organism (07/08/22) Surgical History (Last Reviewed 07/09/22 @ 00:58 [facility] History of cataract removal with insertion of prosthetic lens S/P total abdominal hysterectomy and bilateral salpingo-oophorectomy Status post breast biopsy Medical History (Last Updated 07/09/22 @ 00:58 [facility] Dementia Essential hypertension Hyperlipidemia Hypothyroidism (acquired) Physical Therapy Inpatient Evaluation/Re-Eval M1 PT/OT-IP Prior Functional Status Start: 07/09/22 16:36 Freq: NEEDED Status: Active Protocol: Document 07/09/22 15:00 AB (Rec: 07/09/22 16:52 [email or web address]) Medical Review Prior Functional Status Medical History Reviewed Yes Communication slow to respond and inconsistent with answering questions Mobility and Gait spouse in room and provided pt 's PLOF and home set up: stated that pt is modified indepednent with all mobilities and ambualtion withotu AD but tends to shuffle LE during ambulation but does not want to use an AD ; stated that he assists pt with going up/down stairs Social History Household Members spouse Living Arrangements House Number of Floors (Floors) Two Floors Number of Stairs To Enter/Railing? pt stays on mail level of the house has 4 steps L rail ascending and spouse assists pt on R side Home Environment Standard Height Toilet,Walk in Shower Home Equipment Front Wheel Walker M2 PT-IP Current Condition Start: 07/09/22 16:36 Freq: NEEDED Status: Active Protocol: Document 07/09/22 15:00 AB (Rec: 07/09/22 16:52 AB [email or web address]) Physical Therapy Current Condition Current Condition Evaluation Date 07/09/22 Treatment Diagnosis GLF; R humeral fx; PNA; difficulty in walking Onset Date 07/08/22 M3 PT-IP Subjective Start: 07/09/22 16:36 Freq: NEEDED Status: Active Protocol: Document 07/09/22 15:00 AB (Rec: 07/09/22 16:52 AB [email or web address]) Subjective Physical Therapy Visit Type Type Initial Evaluation Visit Start Time 15:00 Visit Stop Time 15:40 Total Visit Minutes 40 Number of DIRECTOR OF MANUFACTURING OPERATIONS Visits 0 Physical Therapy Visit Comments Patient Comments agreeable to do PT M4 PT-IP Mobility and Gait Start: 07/09/22 16:36 Freq: NEEDED Status: Active Protocol: Document 07/09/22 15:00 AB (Rec: 07/09/22 16:52 AB [email or web address]) PT-Bed Mobility Assessment Supine to Sit Supine to Sit Maximum Assistance Sit to Supine Sit to Supine Total Assistance,2 Person Assistance PT-Transfer Assessment Sit to and From Stand Sit to and from Stand Maximum Assistance,2 Person Assistance,Use of Upper Extremities Equipment Transfer Assistive Device Gait Belt,Flaco Walker Orthotic/Prosthetic Devices or Brace: Yes Comments Mobility Comments educated pt and spouse regarding precautions and restrictions on RUE. O2 sat with O2 on 96%. BP: 137/68 pt completed supine to sit max A and max cues with HOB elevated. mod to max A for sitting on EOB. MEDICAL INSURANCE VERIFIER in room and assessed pt while sitting on EOB. increase lateral side bending after ~ 3 min of sitting and pt stated that she is getting tired. completed sit to stand max A x 2 and max cues. max A x 2 for standing balance using hemiwalker and instructed to take side steps towards HOB and completed ~ 3 steps using hemiwalker max A x 2 and max cues. pt with difficulty following instructions. needed assist to move LE. pt completed sit to supine max A x 2 and max cues. positioned pt on the bed. call light and table placed within reach. Gait Assessment Comments Gait Comments side stepping towards HOB for positioning using hemiwalker PT-Balance Assessment Sitting Balance and Reactions Static Sitting Balance Ability Fair Dynamic Sitting Balance Ability Poor Standing Balance and Reactions Static Standing Balance Ability Poor Dynamic Standing Balance Ability Poor Device Used hemiwalker M5 PT-IP Objective Assessments Start: 07/09/22 16:36 Freq: NEEDED Status: Active Protocol: Document 07/09/22 15:00 AB (Rec: 07/09/22 16:52 AB [email or web address]) Orientation Orientation/Cognition Level of Alertness Confusional State Orientation Name Language Function Ability Hard of Hearing Safety Awareness Decreased Safety Awareness Memory Description Short Term Impaired,Teachers' Aide Impaired Comments slow responses to questions and instructions Gross Range of Motion Lower Extremity ROM Assessment Within Functional Limits Strength Lower Extremity Strength Hip 3+/5 Knee 4-/5 Muscle Tone Muscle Tone WNL Yes M6 PT-IP Treatment Start: 07/09/22 16:36 Freq: NEEDED Status: Active Protocol: Document 07/09/22 15:00 AB (Rec: 07/09/22 16:52 AB [id number]) Physical Therapy Treatment Education Education Provided Precautions,Weight Bearing Status,Safety M7 PT-IP Assessment and Plan Start: 07/09/22 16:36 Freq: NEEDED Status: Active Protocol: Document 07/09/22 15:00 AB (Rec: 07/09/22 16:52 AB [email or web address]) PT Summary Assessment and Plan Potential Rehabilitation Potential Good Status of Condition at Evaluation Evolving Summary Impairments Pain,ROM,Strength,Balance, Coordination,Sensation,Tone, Cognition,Bed Mobility, Transfers,Gait,Activity Tolerance Assessment Summary pt requiring max A x 2 with mobility and unable to tolerate much activity affecting functional level. pt with dx dementia affecting safety awareness. pt will / assist of 2 person at this time and unable to ambulate and will require SNF rehab to improve strength and mobility. will continue to assess progress. Goals Bed Mobility Goal Moderate Assistance Gait Goal Moderate Assistance,Flaco Walker Gait Distance 25 Other Goals improve bed mobility, transfers, ambulation without AD CGA 100 ft up/down 4 steps L rail + SPACE OPERATIONS OFFICER CGA Days to Meet Goals 10 Frequency of Treatment Frequency Of Treatment Once a Day Treatment Plan Physical Therapy Treatment Plan Bed Mobility Training,Transfer Training,Gait Training, Therapeutic Exercise,Balance Retraining,Discharge Planning, Hot or Cold Pack,Neuromuscular Re-ed,Coordination Retraining ,Manual Therapy Precautions Shoulder Precautions Sling Weight Bearing Status Weight Bearing Status Non-Weight Bearing Allowed Weight Bearing Amount (enter % RUE NWB or #) (%) Recommendations To Nursing Amount of Assist Needed 2 Person Assist Discharge Recommendations PT Discharge Recommendations SNF Rehab Transportation Needs at Discharge Wheelchair/Cabulance,Stretcher /Ambulance
--- NOTE | 2022-07-09 16:04 | ST.IPIE ---
Visit Care Team Role Provider Type Dannie Burrell MD Primary Care Provider Non-Staff Specialty: Internal Medicine Address: [address], [address] Email: Suleman Gallegos MD Other Providers Physician Specialty: Orthopedics Orthopedic Surgery Address: [address] [place] [address], [id number] Email: [email or web address] Emergency Provider Physician Referring Provider Specialty: Emergency Medicine Address: [address] [place] [address], [id number] Email: [email or web address] Admit Provider Physician Attending Provider Specialty: Hospitalist Internal Medicine Address: [address] [place] [address], [facility] Email: Current Diagnoses Sepsis, unspecified organism (07/08/22) Past Medical History (Last Updated 07/09/22 @ 00:58 by EDWIEG Teresa-SAMI) Dementia (Medical) Essential hypertension (Medical) Hyperlipidemia (Medical) Hypothyroidism (acquired) (Medical) ST IP Initial Evaluation Report BULKER Clinical Swallow Evaluation Start: 07/09/22 15:44 Freq: Status: Active Protocol: Document 07/09/22 15:44 JOANA (Rec: 07/09/22 16:03 ZS [id number]) Clinical Swallow Evaluation Session Time Visit Start Time 15:15 Visit Stop Time 15:45 Total Visit Minutes 30 Visit Information Visit Number Initial Evaluation Setting Assessment Location Acute Care Visit Type Note Type Initial evaluation Next Note Type Next Note Type Re-evaluation Patient Information Identification Type Name History Per H&P: Keyona Paredes is an 81-year-old female with a history dementia, hyperthyroidism, hypertension, who presented to the ED following a mechanical fall at home trying to get up from the table in which she fell and hit her face with no loss of consciousness presented to the ED via her complaining of right arm pain. Patient was initially being evaluated for mechanical fall with facial trauma and right humerus fracture, when she was found have mild leukocytosis and cxr showed mild atypical pneumonia and required oxygen. ? In CT her oxygen dropped significantly and placed on 6 L nasal cannula, given Narcan and Zofran.? Patient was responsive Narcan seem to help her a little bit.? When she came back from the CT room as she was put on a non- rebreather which has been weaned down to about 2-3 L of nasal cannula.? does not report a change in behavior or cough.? In the emergency department patient also presented with mild hypertension BP 199/99, 190/80 , 171/72, O2 saturations on room air dropped to 84-87%. Due to patient's dementia she is unable to participate or provide any HPI, ROS, family history, or surgical history. Patient was only able to tell me her name. C-spine, pelvic x-ray, head CT, and CT of face are all negative for any acute processes or fractures. CTA demonstrated scattered areas of nodularity greatest within the left upper lobe of lung, no PE. Patient admitted to ICU for sepsis without septic shock, acute respiratory failure with hypoxia, atypical pneumonia, mechanical fall with facial trauma, and right humeral fracture. Subjective Observations Pt was working with PT on sitting upright at the edge of the bed with at bedside when BULKER arrived. Once pt was sitting upright at edge of the bed, BULKER completed portion of OME and 3 trials of water through straw cup. WALL INSULATION SPRAYER arrived and pt worked with PT and WALL INSULATION SPRAYER to stand and take some steps before returning to bed. Once pt was back in bed, she refused further PO trials and appeared to be fatigued. reported pt does not like applesauce. Reported by Patient Other Symptoms Coughing Objective Assessment Mental Status Alert,Responsive,Cooperative Oral Integrity WFL Dentition Within normal limits Lip Function Mild impairment Observation of Lips at Rest Symmetrical Pucker Within normal limits Lip Retraction Within normal limits Alternating Pucker/Lip Retraction Reduced range of motion, Incoordination Tongue Function Moderate impairment Observations of Tongue at Rest Within normal limits Tongue Protrusion Reduced range of motion Tongue Lateralization Reduced range of motion Jaw Function Within normal limits Observations of Jaw at Rest Within normal limits Jaw Opening Reduced range of motion Jaw Closing Within normal limits Hard/Soft Palate Function Within normal limits Observations of Hard/Soft Palate Within normal limits Comment Completed OME with pt seated at bedside. Pt had difficulty following directions due to impaired cognition secondary to dementia, though completed several motions with only verbal cues. Pt did not follow directions for maintaining labial seal, though reported she does not have difficulty with anterior loss of food/liquid. Reduced ROM noted in tongue movement and difficulty observed in coordinating movement for smile/pucker. Fatigue likely impacted by positioning for assessment, as PT noted pt was leaning back more as assessment progressed. Food and Liquid Trials Position During Assessment Upright (90 degrees),In bed Liquids Trialed Thin Oral Phase Comments 3 trials of thin liquid through straw cup completed. Pt exhibited no anterior loss of bolus. A/p propulsion and swallow was audible. No residue observed following PO trials. Pt did not want additional PO trials following work with PT and repositioning in bed. Pharyngeal Phase Comments Pt exhibited wet/gurgly vocal quality on first PO trial. Prompted pt to cough/clear throat and wet/gurgly quality cleared. No overt signs or symptoms of aspiration observed on subsequent 2 trials. Pt refused PO trials of applesauce, pudding, and egg salad following work with PT. indicated pt does not like applesauce. Comment Pt exhibited fatigue across assessment, though this is likely due to positioning during trials (pt supporting own body weight in seated position at edge of bed) and standing with PT after trials of water. Unable to rule out silent aspiration with clinical swallow assessment. Will determine if modified barium swallow study is warranted following re- assessment of swallow safety with liquid and solid trials. Results Pt exhibited cough on initial trial of thin liquid through straw cup, and cleared wet/ gurgly vocal quality when prompted to cough/clear throat . Subsequent trials had no overt signs or symptoms of aspiration. Recommend reassessment of OME and trials with solids tomorrow, as fatigue may have impacted performance today. Findings Contributing Factors to Swallow Reduced alertness or attention Impairment ,Difficulty following directions,Reduced oral strength/coordination/ sensation Recommendations Swallowing Treatment Yes Frequency re-assess to determine frequency Recommended Liquids Thin Safety Precautions/Swallowing Feed only when alert,Reduce Recommendations distractions,Remain upright ( 90 degrees) during all oral intake,Upright position at least 30 minutes after meals, Small bites and sips when eating,Slow rate; swallow between bites Education Patient/Caregiver Education Described results of evaluation,Patient expressed understanding of evaluation, Patient expressed agreement with goals & treatment plans, Family/caregivers expressed understanding of evaluation, Family/caregivers expressed agreement with goals & treatment plans,Patient expressed understanding of safety precautions,Patient expressed understanding of feeding recommendations,Family /caregivers expressed understanding of safety precautions,Family/caregivers expressed understanding of feeding recommendations, Patient requires further education/training,Family/ caregivers require further education/training Goals Short-term Goals 1. Re-assess OME and swallow to inform plan of care and dietary recommendations. Long-term Goals The pt will safely tolerate least restrictive diet to meet her nutrition and hydration needs.
--- NOTE | 2022-07-09 16:54 | OT.IPNOTE ---
Pt asleep in the room and able to talk to her to say to come tomorrow for OT mariellaal.
--- NOTE | 2022-07-09 17:32 | RT ---
Patient is on oxymask at 4L for an Spo2 of 93%.
[2022-07-09] MEDS: SENNOSIDES 8.6 MG TABLET 17.2 MG PO (23:02)
[2022-07-10] VITALS (9 sets, daily range): BP systolic 117–180; BP diastolic 49–83; PULSE 73–96; RESP 16–24; TEMP 36.4–37.5; O2SAT 93–100
[2022-07-10 04:46] LABS: Add Manual Diff / Slide Review NO; Basophils Absolute Auto 0 /uL (0-100); Basophils Percent Auto 0.1 % (0-2); Eosinophils Absolute Auto 0 /uL (0-450); Hemoglobin 10.9 g/dL (12.0-16.0); Lymphocytes Absolute Auto 900 /uL (1100-4500); Lymphocytes Percent Auto 6.7 % (25-40); Mean Corpuscular HGB Conc 34.1 % (30-36); Mean Corpuscular Hemoglobin 31.6 PG (26-34); Mean Corpuscular Volume 92.7 fL (80-100); Monocytes Absolute Auto 1300 /uL (0-900); Monocytes Percent Auto 9.7 % (3-14); Neutrophils Absolute Auto 11200 /uL (1500-7000); Neutrophils Percent Auto 83.5 % (50-75); Platelet Count 153 X10^3/uL (150-400); Red Blood Cell Count 3.45 X10^6/uL (4.0-5.2); Red Cell Distribution Width 12.7 % (11.6-14.8); White Blood Cell Count 13.4 X10^3/uL (4.5-11.0)
[2022-07-10 04:55] LABS: Alanine Aminotransferase 29 IU/L (<35); Albumin 3.3 g/dL (3.5-5.0); Alkaline Phosphatase 68 U/L (38-126); Aspartate Aminotransferase 41 IU/L (14-36); BUN Creatinine Ratio 29.1 (6-22); Bilirubin Total 0.3 mg/dL (0.2-1.3); Blood Urea Nitrogen 25 mg/dL (7-17); Calcium 7.6 mg/dL (8.4-10.2); Carbon Dioxide 27 mmol/L (22-32); Chloride 102 mmol/L (98-107); Estimated Glomerular Filt Rate > 60 mL/min (>60); Globulin 3.2 g/dL (1.7-4.1); Glucose 106 mg/dL (80-110); HEMOLYSIS < 15 (0-50); Magnesium 2.1 mg/dL (1.6-2.3); Potassium 3.6 mmol/L (3.4-5.1); Sodium 136 mmol/L (137-145); Total Protein 6.5 g/dL (6.3-8.2)
[2022-07-10] MEDS: METOPROLOL ER 25 MG TABLET PO (09:53)
[2022-07-10] MEDS: SODIUM CHLORIDE 0.9% 1,000 ML 150 ML IV (09:56)
[2022-07-10] MEDS: OXYCODONE/ACETAMINOPHEN 5/325 TABLET 1 TAB PO (09:58)
--- NOTE | 2022-07-10 10:39 | PT.IPTN ---
Current Diagnoses Sepsis, unspecified organism (07/08/22) Physical Therapy Treatment Note M2 PT-IP Current Condition Start: 07/09/22 16:36 Freq: NEEDED Status: Active Protocol: Document 07/09/22 15:00 AB (Rec: 07/09/22 16:52 AB [id number]) Physical Therapy Current Condition Current Condition Evaluation Date 07/09/22 Treatment Diagnosis GLF; R humeral fx; PNA; difficulty in walking Onset Date 07/08/22 M3 PT-IP Subjective Start: 07/09/22 16:36 Freq: NEEDED Status: Active Protocol: Document 07/10/22 10:39 AB (Rec: 07/10/22 12:31 AB [id number]) Subjective Physical Therapy Visit Type Type Treatment Note Visit Start Time 10:39 Visit Stop Time 11:25 Total Visit Minutes 46 Number of CHAIN SALES REPRESENTATIVE Visits 0 Physical Therapy Visit Comments Patient Comments agreeable to do PT Therapy Pain Assessment Pain When Pain Assessed During Mobility Location Right Arm Scale Used pain scale not stated Pain Management Techniques Distraction,Modification of Treatment,Re-positioning, Timing of Activity with Medications M4 PT-IP Mobility and Gait Start: 07/09/22 16:36 Freq: NEEDED Status: Active Protocol: Document 07/10/22 10:39 AB (Rec: 07/10/22 12:31 AB [id number]) PT-Bed Mobility Assessment Supine to Sit Supine to Sit Maximum Assistance,2 Person Assistance,Head of Bed Elevated,Bedrails Scooting Scooting to Edge of Bed Maximum Assistance PT-Transfer Assessment Sit to and From Stand Sit to and from Stand Maximum Assistance,1 Person Assistance,Use of Upper Extremities Equipment Transfer Assistive Device Gait Belt,Flaco Walker Orthotic/Prosthetic Devices or Brace: No Transfers Transfer Destination Chair Transfer Technique Stand Step Pivot Transfer Ability Level of Assist Maximum Assistance Comments Mobility Comments completed supine to sit max A x 2 and max cues. requires mod A for sitting on EOB with initial sitting but only needed min A and cues after positioning on EOB. max A x 1 -2 for scooting to EOB. pt completed sit to stand max A and cues and step tranafer using hemiwalker max A and cues. pt requested to use the toilet. pt completed sit to stand from the chair max A and ambulated ~ 12 ft using hemiwalker to bedside commode. required assist for use of hemiwalker. PT stabilizes hemiwalker for pt and cued to push downwards. pt presents with shuffling gait. spouse stated that pt shuffles even prior to fall. pt required max A for standing balance while assisted with hygiene care and brief management. pt ambulated ~ 12 ft using hemiwalker to chair max A and cues. positioned pt on the chair. call light and table placed within reach. Gait Assessment Gait Gait Assistance Required: Maximum Assistance,1 Person Assist Distance (Feet) 12 Able to Maintain Weight Bearing Status Yes During Gait Assistive Devices Assistive Device Gait Belt,Flaco Walker Gait Deviations General Gait Pattern Decreased Stride Length, Decreased Feet Clearance,Step- to Gait Factors Limiting Gait Function Factors Limiting Gait Function Decreased Activity Tolerance, Decreased Strength,Difficulty Following Directions,Limited Range of Motion,Pain,Poor Balance,Poor Safety Awareness PT-Balance Assessment Sitting Balance and Reactions Static Sitting Balance Ability Fair Dynamic Sitting Balance Ability Fair Standing Balance and Reactions Static Standing Balance Ability Poor Dynamic Standing Balance Ability Poor Device Used hemiwalker M5 PT-IP Objective Assessments Start: 07/09/22 16:36 Freq: NEEDED Status: Active Protocol: Document 07/09/22 15:00 AB (Rec: 07/09/22 16:52 AB [facility] Orientation Orientation/Cognition Level of Alertness Confusional State Orientation Name Language Function Ability Hard of Hearing Safety Awareness Decreased Safety Awareness Memory Description Short Term Impaired,It Security Engineer Impaired Comments slow responses to questions and instructions Gross Range of Motion Lower Extremity ROM Assessment Within Functional Limits Strength Lower Extremity Strength Hip 3+/5 Knee 4-/5 Muscle Tone Muscle Tone WNL Yes M6 PT-IP Treatment Start: 07/09/22 16:36 Freq: NEEDED Status: Active Protocol: Document 07/10/22 10:39 AB (Rec: 07/10/22 12:31 AB [email or web address]) Physical Therapy Treatment Education Education Provided Precautions,Weight Bearing Status,Safety M7 PT-IP Assessment and Plan Start: 07/09/22 16:36 Freq: NEEDED Status: Active Protocol: Document 07/10/22 10:39 AB (Rec: 07/10/22 12:31 AB [email or web address]) PT Summary Assessment and Plan Potential Rehabilitation Potential Fair Summary Impairments Pain,ROM,Strength,Balance, Coordination,Sensation,Tone, Cognition,Bed Mobility, Transfers,Gait,Activity Tolerance Progress Towards Goals Slow Progress due to Medical Issues,Slow Progress due to Activity Tolerance Assessment Summary pt requiring max A x 2 for bed mobility and max A for transfers and ambulation using hemiwalker. pt will require SNF rehab to improve stregnth and function. Goals Bed Mobility Goal Moderate Assistance Gait Goal Moderate Assistance,Flaco Walker Gait Distance 25 Other Goals improve bed mobility, transfers, ambulation without AD CGA 100 ft up/down 4 steps L rail + POLICY AND PLANNING MANAGER CGA Days to Meet Goals 10 Frequency of Treatment Frequency Of Treatment Once a Day Treatment Plan Physical Therapy Treatment Plan Bed Mobility Training,Transfer Training,Gait Training, Therapeutic Exercise,Balance Retraining,Discharge Planning, Hot or Cold Pack,Neuromuscular Re-ed,Coordination Retraining ,Manual Therapy Precautions Shoulder Precautions Sling Weight Bearing Status Weight Bearing Status Non-Weight Bearing Allowed Weight Bearing Amount (enter % RUE NWB or #) (%) Recommendations To Nursing Amount of Assist Needed 2 Person Assist Discharge Recommendations PT Discharge Recommendations SNF Rehab Transportation Needs at Discharge Wheelchair/Cabulance
--- NOTE | 2022-07-10 10:52 | DIET.CONS ---
Addendum entered by Isela Petit 07/10/22 15:09: Rec: Spanish yogurt and peach smoothie BID made nectar thick with whole milk. Original Note: Dietary Consultation Note Admission Date: 07/08/2022 22:44 Assessment: 81 y/o woman with acute respiratory failure secondary to pneumonia admitted after mechanical fall resulting in facial trauma and right humerus fx. PMH of dementia, hypothyroidim and HTN. present for assessment. He reports Keyona eats twice per day usually at noon and 6pm. Seems to have a good appetite per diet recall. Despite this, he and Keyona report weight loss over the last 3 or more months. Unclear how much weight loss. Reports a weight of 111# at a PCP visit 4 months ago. Current EMR weight of 55kg may not be reliable. Spoke with RN and RAIL CAR MAINTENANCE MECHANIC, plans to retake weight today. Even without weight loss, Keyona exhibits PCM with nutrition focused physical exam and BMI low for age of 19.6. NFPE: significantly depressed temples, protruding acromion process, boxed shoulders, and depressed interosseous muscle. Diet recall: 12p: 2eggs and turkish muffin OR 2c granola with 1c milk and OJ 6p: lasagna or burger with lettuce and tomatoes, or chili or rice with chx Does not like ONS. Will work with kitchen to make a smoothie with pro. ACCOUNT MANAGER EMPLOYEE [employer]ENEFITS indicates nectar thick liquids. Ht: 167.64 cm Wt: 55 kg BMI: 19.5 Last BM: 07/09/22 (07/09/22 13:01) MNA: 7 Fidel Score: 18 Labs: RBC 3.45 X10^6/uL (4.0-5.2) L 07/10/22 04:07 Hgb 10.9 g/dL (12.0-16.0) L 07/10/22 04:07 Hct 32.0 % (36-46) L 07/10/22 04:07 Creatinine 0.86 mg/dL (0.52-1.04) 07/10/22 04:07 Lactate 1.4 mmol/L (0.7-2.1) 07/09/22 06:37 NT-Pro-B Natriuret Pep 221 pg/mL (<450) 07/08/22 18:22 Nutrition Diagnosis: Severe acute on chronic protein calorie malnutrition r/t limited eating occurrences potentially resulting in inadequate kcal intake aeb BMI low for age <21 and significant muscle/fat wasting indicated with depressed temples, protruding acromion process, boxed shoulders and depressed interosseous muscle. Interventions: 1. Nutrition education with regarding increased eating occurrences at home and increased protein 2. Working with kitchen to find protein gabriel she will enjoy EER: 1650 kcals based on BMI and current weight listed (will update prn) 83-100g PRO (per malnutrition based on current wt) Monitoring/Evaluations: Smoothie tolerance, PO, weight Electronically Signed by: Isela Petit 07/10/22 10:52 Clinical Dietitian [address] [address]
--- NOTE | 2022-07-10 11:28 | OT.IP.EVAL ---
Current Diagnoses Sepsis, unspecified organism (07/08/22) Past Medical History (Last Updated 07/09/22 @ 00:58 by Hayley Barrett [facility]) Dementia Essential hypertension Hyperlipidemia Hypothyroidism (acquired) Surgical History (Last Reviewed 07/09/22 @ 00:58 by Hayley Barrett [facility]) History of cataract removal with insertion of prosthetic lens S/P total abdominal hysterectomy and bilateral salpingo-oophorectomy Status post breast biopsy Occupational Therapy Inpatient Evaluation/Re-Eval M1 PT/OT-IP Prior Functional Status Start: 07/09/22 16:36 Freq: NEEDED Status: Active Protocol: Document 07/10/22 13:56 [facility] (Rec: 07/10/22 14:31 [facility] [id number]) Medical Review Prior Functional Status Medical History Reviewed Yes Communication slow to respond and inconsistent with answering questions Mobility and Gait spouse in room and provided pt 's PLOF and home set up: stated that pt is modified indepednent with all mobilities and ambulation without AD but tends to shuffle LE during ambulation but does not want to use an AD ; stated that he assists pt with going up/down stairs Activities of Daily Living and IADL's Pt states able to do her ADL's and assist with helping to get out of the shower. Pt's does all IADl needs. Social History Household Members spouse Living Arrangements House Number of Floors (Floors) Two Floors Number of Stairs To Enter/Railing? pt stays on mail level of the house has 4 steps L rail ascending and spouse assists pt on R side Home Environment Standard Height Toilet,Walk in Shower Home Equipment Front Wheel Walker M2 OT-IP Current Condition Start: 07/10/22 13:55 Freq: Status: Active Protocol: Document 07/10/22 13:56 [facility] (Rec: 07/10/22 14:31 [facility] [id number]) Occupational Therapy Current Condition Current Condition Evaluation Date 07/10/22 Treatment Diagnosis Right humeral head fx, PNA Diagnosis Onset Date 07/08/22 Post Operative Precautions Shoulder Precautions Sling Other Precautions NWB to RUE Weight Bearing Status Weight Bearing Status Non-Weight Bearing M3 OT- IP Subjective and Pain Start: 07/10/22 13:55 Freq: Status: Active Protocol: Document 07/10/22 13:56 [facility] (Rec: 07/10/22 14:31 [facility] [id number]) OT- Subjective Occupational Therapy Visit Type Type Initial Evaluation Visit Start Time 10:39 Visit Stop Time 11:28 Total Visit Minutes 49 Occupational Therapy Visit Comments Patient Comments Pt agreed to get up and pt's in the room for part of OT eval. OT Pain Assessment Pain When Pain Assessed During Mobility Pain Present Pain Present Pain Reported M4 OT- IP ADL's Start: 07/10/22 13:55 Freq: Status: Active Protocol: Document 07/10/22 13:56 [facility] (Rec: 07/10/22 14:31 [facility] [id number]) OT [id number] Comments OT Self-Feeding Comments NOt at meal time, will need assist as pt is right handed and now NWB. OT ADL-Grooming General Evaluation Grooming Ability Standby Assistance Comments OT Grooming Comments Pt able to wash her face after set-up. OT ADL-Oral Care General Eval Oral Care Ability Standby Assistance Areas of Assistance Retrieving/Set-Up of Items Comments Oral Care Comments Pt able to swab her mouth after set-up. OT ADL-Dressing General Eval Upper Body Dressing Ability Total Assistance Lower Body Dressing Ability Total Assistance Comments OT Dressing Comments Total assist for sling management needs and for sock/ shoes. OT ADL-Toileting General Evaluation Toileting Ability Total Assistance Areas Needing Assistance Manage Clothing,Perform Perineal Hygiene Devices Toileting Assistive Devices Commode Comments OT Toileting Comments MAXAx1 to stand with flaco- walker and another assist of another for all brief and hygiene needs at this time. OT ADL-Bathing Comments OT Bathing Comments Sponge bath more appropriate at this time. M5 OT- IP IADL's Start: 07/10/22 13:55 Freq: Status: Active Protocol: Document 07/10/22 13:56 [facility] (Rec: 07/10/22 14:31 [facility] [id number]) OT-Instrumental Activities of Daily Living Deficits IADL Deficits Identified Deficits Home Safety Awareness Awareness of Need for Assistance at Home Decreased Awareness Medication Management Medication Management Caregiver Administers Money Management Money Management Caregiver Provides Assistance Meal Preparation Meal Preparation Caregiver Provides Assist Dog Boarder Dog Boarder Caregiver Provides Assist M6 OT- IP Functional Cognition Start: 07/10/22 13:55 Freq: Status: Active Protocol: Document 07/10/22 13:56 [facility] (Rec: 07/10/22 14:31 [facility] [id number]) Cognitive Factors Limiting Selfcare Function Cognitive Ability Level of Alertness Alert,Confusional State Patient Orientation Name Attention Span Ability Capable of Focused Attention, Unable to Sustain Attention Ability to Follow Commands Able to Follow One Step Commands with Increased Time, Able to Follow One Step Commands with Repetition Memory Description Short Term Impaired,Working Impaired Cognitive Comments Cognitive Assessment Comments Pt unaware at the hospital or remembering that she broke her arm. M7 OT- IP Mobility and Balance Start: 07/10/22 13:55 Freq: Status: Active Protocol: Document 07/10/22 13:56 [facility] (Rec: 07/10/22 14:31 [facility] [id number]) OT- Bed Mobility Assessment Supine to Sit Supine to Sit Assist Maximum Assistance,2 Person Assistance OT-Transfer Assessment Sit to and From Stand Sit to and from Stand Maximum Assistance,1 Person Assistance Transfers Transfer Ability Maximum Assistance,1 Person Assistance Technique Transfer Destination Bed,Bedside Commode,Chair Transfer Technique Stand Pivot Devices Transfer Assistive Devices Gait Belt,Flaco Walker Comments Mobility Comments MAX AX 2 to get from HOB up tp edge of the bed. MAX A x1 to stand to hemiwalker and assist to balance, moving the flaco- walker and for IV pole and O2 management needs. OT- Balance Assessment Sitting Balance and Reactions Static Sitting Balance Ability Fair Dynamic Sitting Balance Ability Poor Standing Balance and Reactions Static Standing Balance Ability Poor Dynamic Standing Balance Ability Poor M8 OT- IP Objective Assessments Start: 07/10/22 13:55 Freq: Status: Active Protocol: Document 07/10/22 13:56 [facility] (Rec: 07/10/22 14:31 [facility] [id number]) OT Gross Range of Motion Upper Extremity Range of Motion Assessment Right Impaired OT Strength Upper Extremity Strength Assessment Right Impaired Comments Strength Comments LUE grossly WFL for age and lifestyle M9 OT- IP Assessment and Plan Start: 07/10/22 13:55 Freq: Status: Active Protocol: Document 07/10/22 13:56 [facility] (Rec: 07/10/22 14:31 [facility] [id number]) OT Summary Assessment and Plan Potential Rehabilitation Potential Good Analytic Complexity at Evaluation Moderate Summary OT Impairments Pain,Range of Motion,Strength, Balance,Functional Cognition, Functional Mobility,Self- Feeding,Grooming,Dressing, Toileting,Bathing,Toilet Transfers,Shower Transfers, Activity Tolerance Progress Towards Goals Slow Progress due to Pain,Slow Progress due to Medical Issues,Slow Progress due to Activity Tolerance,Slow Progress due to Cognition Assessment Summary Pt MOD complexity due to, on O2, pain, steps, and now needing extensive two person assist for mobility and ADL needs. Pt will greatly benefit from skilled rehab as her current level too great for her to assist at home. Goals Grooming Goal Standby Assistance Dressing Goal Minimal Assistance Toileting Goal Standby Assistance Bathing Goal Minimal Assistance Toilet Transfer Goal Contact Guard Assistance Shower Transfer Goal Contact Guard Assistance Days to Meet Goals 20 Frequency of Treatment Frequency Of Treatment Once a Day Treatment Plan OT Treatment Plan ADL Training,Functional Cognition Training,Functional Mobility,Patient/Family Education,Discharge Planning Discharge Recommendations OT Discharge Recommendations SNF Rehab Transportation Needs at Discharge Wheelchair/Cabulance
--- NOTE | 2022-07-10 11:33 | P.PN_ITS ---
Subjective Subjective Date Patient Seen: 07/10/22 Time Patient Seen: 08:00 Interval history: She looks more alert and awake than yesterday. She looks like she has more energy. Per therapy note she is max assist. She remains on oxygen. Her shoulder pain is improving. Exam Vital Signs (past 8 hours): - 07/10/22 04:40 07/10/22 08:00 07/10/22 09:53 Temperature 98.9 F 99.2 F Pulse Rate 83 81 86 Respiratory Rate 17 18 Blood Pressure 131/64 154/69 H 156/68 H Pulse Oximetry 100 93 Oxygen Flow Rate 4 4 Fraction of Inspired Oxygen 35 SaO2/FiO2 Ratio 274 Oxygen Delivery Method Oximask Oxygen Flow Rate 4 Narrative Exam Narrative: GEN: more alert and awake than yesterday CV: regular rate and rhythm, no murmurs PULM: coarse breath sounds bilaterally ABD: soft, nontender, nondistended, no organomegaly EXT: warm and well perfused, R arm in sling NEURO: confused, moving all extremities Objective Labs Result Diagrams: 07/10/22 04:07 07/10/22 04:07 Labs: Laboratory Results - last 24 hr 07/10/22 07/10/22 04:07 04:07 WBC 13.4 H RBC 3.45 L Hgb 10.9 L Hct 32.0 L MCV 92.7 MCH 31.6 MCHC 34.1 RDW 12.7 Plt Count 153 Neut % (Auto) 83.5 H Lymph % (Auto) 6.7 L [place] % (Auto) 9.7 Eos % (Auto) 0.0 L Baso % (Auto) 0.1 Neut # (Auto) 12581 H Lymph # (Auto) 900 L [place] # (Auto) 1300 H Eos # (Auto) 0 Baso # (Auto) 0 Sodium 136 L Potassium 3.6 Chloride 102 Carbon Dioxide 27 BUN 25 H Creatinine 0.86 Estimated GFR > 60 BUN/Creatinine Ratio 29.1 H Glucose 106 Calcium 7.6 L Magnesium 2.1 Total Bilirubin 0.3 AST 41 H ALT 29 Alkaline Phosphatase 68 Total Protein 6.5 Albumin 3.3 L Globulin 3.2 Albumin/Globulin Ratio 1.0 PFSH Medical History (Updated 07/09/22 @ 00:58 by INGE Teresa) Dementia Essential hypertension Hyperlipidemia Hypothyroidism (acquired) Surgical History History of cataract removal with insertion of prosthetic lens S/P total abdominal hysterectomy and bilateral salpingo-oophorectomy Status post breast biopsy Social History household members: spouse Smoking Status: Former smoker alcohol intake: never Assessment & Plan Assessment & Plan narrative: 1. Acute hypoxemic respiratory failure secondary to pneumonia -etiology of pneumonia not certain, appears possibly viral on imaging -she also sound as if she is aspirating -treat for community acquired pneumonia with antibiotics -flu, covid, rsv negative -given apperance other etiologies entertained, but she has no travel recently, no pets, mold, etc -on admission was on heated high flow, now on nasal cannula -wean as able -RT following -sepsis ruled out 2. Mechanical fall resulting in facial trauma and right humerus fractur -Right shoulder x-ray demonstrated mildly displaced humeral neck fracture. -C-spine, pelvic x-ray, head CT, and CT of face are all negative for any acute processes or fractures. -consult placed for Dr. Gallegos orthopedics -pain control right now with IV pain medications -when less confused try oral medications -consult ordered for PT/OT 4. Dementia, chronic, present on admission -patient takes no known medications -ativan prn for agitation, will try to start seroquel once she is able to tolerate oral medications 5.Hypothyroidism -continue levothyroxine -order TSH/T4 6. Hypertension -continue metoprolol, hold hydrochlorothiazide 7. Malnutrition, acute on chronic -BMI 19.4 -patient's malnutrition places them at high risk for medical and surgical complications because of the malnutrition in relation to sepsis with acute hypoxic respiratory failure/pneumonia and in relation to her chronic illness. This increases the difficulty in complexity of medical management and increases the chances poor outcomes such as mortality and morbidity as well as impaired wound healing, and immune suppression. -dietary consult ordered to evaluate and implement steps to improve caloric intake and nutrition. Dispo: suspect she will need SNF at discharge given deconditioning Time Spent With Patient Critical Care time: I spent a total of [] minutes of critical care time on this patient's care today; this time is exclusive of procedural time. Quality VTE Deep Vein Thrombosis/Pulmonary Embolism Present on Admission: No
[2022-07-10] MEDS: HYDROMORPHONE 0.5 MG INJ IV (11:57)
--- NOTE | 2022-07-10 11:57 | ST.IPCSEOM ---
Visit Care Team Role Provider Type Dannie Burrell MD Primary Care Provider Non-Staff Specialty: Internal Medicine Address: [address], [address] Email: Suleman Gallegos MD Other Providers Physician Specialty: Orthopedics Orthopedic Surgery Address: [address] [place] [address], [id number] Email: [email or web address] Provider Physician Referring Provider Specialty: Emergency Medicine Address: [address] [place] [address], [address] Email: [email or web address] Provider Physician Attending Provider Specialty: Hospitalist Internal Medicine Address: [address] [place] [address], [facility] Email: Current Diagnoses Sepsis, unspecified organism (07/08/22) Past Medical History (Last Updated 07/09/22 @ 00:58 by EDWIGE TeresaSAMI) Dementia (Medical) Essential hypertension (Medical) Hyperlipidemia (Medical) Hypothyroidism (acquired) (Medical) Speech-Language Pathology Swallow Evaluation MANUFACTURING SALES REPRESENTATIVE Clinical Swallow Evaluation Start: 07/09/22 15:44 Freq: Status: Active Protocol: Document 07/10/22 11:25 [facility] (Rec: 07/10/22 11:57 [facility] [id number]) Clinical Swallow Evaluation Session Time Visit Start Time 09:15 Visit Stop Time 09:45 Total Visit Minutes 30 Referral Referring Provider Setting Assessment Location Acute Care Visit Type Note Type Re-evaluation Next Note Type Next Note Type Treatment Note Patient Information Identification Type Name,Wristband History Per H&P: Keyona Paredes is an 81-year-old female with a history dementia, hyperthyroidism, hypertension, who presented to the ED following a mechanical fall at home she fell where she hit her face with no loss of consciousness, presented to the ED via her complaining of right arm pain. Patient was initially being evaluated for mechanical fall with facial trauma and right humerus fracture, when she was found have mild leukocytosis and cxr showed mild atypical pneumonia and required oxygen. Per , she has had months of cough. She often coughs when eating. Initial attempt at swallow evaluation was attempted, but pt was fatigued and could not complete the assessment. Subjective Observations shift supervisor film processing nursing reported that the pt had difficulty swallowing her medications with water, having choked when administered. Pt was then made PMO status. Pt was in bed with an O2 mask in place. After speaking with the nurse , this MANUFACTURING SALES REPRESENTATIVE was assured that swallowing assessment could proceed. Pt was in bed with her in the room with her. Pt was agreeable to the assessment. Reported by Patient Other Symptoms Coughing Objective Assessment Mental Status Alert,Responsive,Cooperative Oral Integrity WFL Dentition Within normal limits Observation of Lips at Rest Symmetrical Tongue Function Moderate impairment Observations of Tongue at Rest Within normal limits Tongue Protrusion Reduced range of motion Tongue Lateralization Reduced range of motion Jaw Opening Reduced range of motion Comment Pt demonstrated better attention to OME directions. Pt is slow to respond. She reported that she is a slow eater needing several swallows to clear her mouth. Food and Liquid Trials Position During Assessment Upright (90 degrees),In bed Oral Phase Comments Pt was able to sip water from spoon safely. Cup sip was not safe for pt indicating poor control for larger boluses. Pt had difficulty with whole pills in in pudding, as she was unable to swallow both. Crushed meds in pudding recommended Pharyngeal Phase Comments Pt exhibited wet/gurgly vocal quality on first PO trial with cup sip. Prompted pt to cough /clear throat and wet/gurgly quality cleared. With teaspoonful of [place] Thick liquid, pt's vocal quality cleared. Results Pt demonstrated an audible swallow, which may indicate reduced coordination between the oral and pharyngeal structures to protect the airway. Pt's voice sounded wet/gurgly following thin liquid trials. Trials with [place] Thick liquids were observed to elicit no audible swallow and clear voice following intake. Pt was unable to cup sip safely. Liquids via spoon was more effective. Dysphagia advanced foods were easier for the pt to eat and swallow. Recommend modified diet to increase oral intake and decrease risk for aspiration Findings Swallowing Function Oropharyngeal phase dysphagia Severity of Swallow Impairment Mildly-moderately impaired Contributing Factors to Swallow Reduced oral strength/ Impairment coordination/sensation, Impaired oral-pharyngeal transport,Delayed swallow initiation,Excessive oral residue,Excessive pharyngeal residue Prognosis Fair Based on Cognitive status,Age, Comorbidities,Duration of symptoms/severity Recommendations Instrumental Assessment No Swallowing Treatment Yes Frequency daily while inpatient status Recommended Solids Dysphagia Advanced Recommended Liquids [place] Other Recommendations NO STRAWS - LIQUIDS VIA SPOON ONLY Safety Precautions/Swallowing Feed only when alert,Reduce Recommendations distractions,Remain upright ( 90 degrees) during all oral intake,Upright position at least 30 minutes after meals, Small bites and sips when eating,Slow rate; swallow between bites Education Patient/Caregiver Education Described results of evaluation,Patient expressed understanding of evaluation, Patient expressed agreement with goals & treatment plans, Family/caregivers expressed understanding of evaluation, Family/caregivers expressed agreement with goals & treatment plans,Patient expressed understanding of safety precautions,Patient expressed understanding of feeding recommendations,Family /caregivers expressed understanding of safety precautions,Family/caregivers expressed understanding of feeding recommendations, Patient requires further education/training,Family/ caregivers require further education/training Goals Long-term Goals The pt will safely tolerate least restrictive diet to meet her nutrition and hydration needs.
--- NOTE | 2022-07-10 13:16 | SLP.IPNOTE ---
Diet change: Pt was having difficulty with dysphagia advanced texture. Downgraded to dysphagia mechanical (minced and Moist). Easier for pt to chew with less risk of aspiration. Signs above bed were changed to reflect new diet
--- NOTE | 2022-07-10 14:20 | CM.DANOTE ---
Initial DCP Assessment Note Pt is a 81 yo female, resident of [place], presents after GLF; Patient admitted to ICU for sepsis without septic shock, acute respiratory failure with hypoxia, atypical pneumonia, mechanical fall with facial trauma, and right humeral fracture. PCP: Tavon Ruiz Payer: [place] [facility] Reviewed chart, met w/patient's spouse Nigel in the acute care waiting room this morning, introduced self and role. Provided Nigel with Senior Resource Guide and included information/brochures for two [facility] services that assist loved ones in securing intermediate school teacher care Patient and spouse have a home in [place] and have two adult children in the [facility] (one son together and a dtr from patient's former marriage). Patient has been managing well most days at home; spouse admits he often will hold his 's hand when walking because she likes to have me with her. Spouse reports patient is able to toilet on her own and dresses mostly indp Patient requires assist with bathing when she agrees to shower; spouse explains patient has been resistant to showers. Explained this is not unusual for someone with dementia Patient sleeps most of the day and gets up occasionally to use the BR in the evening, never combative or agitated, and patient has exhibited no exit seeking behavior Asked spouse if he has considered what he will do when patient's care needs eventually outweigh spouse's abilities ? Spouse plans to keep patient home and will review the information and brochures provided by this TORCH CUTTER for in home care. Strongly encouraged spouse to do this KANDIS Discussed PT's recommendation for SNF rehab and explained that patient's dementia will be a barrier to securing SNF Spouse wants to take patient home, is agreeable to HH, states their son will help him get patient back in the house upon discharge. Again, encouraged spouse to research in home care options to assist he and his family keep patient safely cared for at home, spouse states understanding TRINI Cox Discharge Planning/Care Management CM Discharge Assessment Start: 07/10/22 12:58 Freq: Status: Active Protocol: Document 07/10/22 12:59 [facility] (Rec: 07/10/22 14:20 [facility] [id number]) Discharge Planning Assessment Assigned Instructor [employer] TRINI Graff DPOA/Assigned Designee Name Nigel Tran, spouse Contact Information [phone] Advance Directives? Yes Advance Directives on File No History Provided By Family Member,Medical Record Prior Living Arrangements House Household Members spouse Type of transporation used prior to Relies on Others admit Independent with ADL's No Is patient alert and oriented? No Needs Assistance With Bathing,Grooming,Meal Prep, Managing Medications,Home Chores / Shopping Patient/Family Preference Home with Home Health Barriers to Discharge Yes Comment Patient is cared for by her elderly spouse, no in home care in place currently. Son lives in [place]. Discharge Plan Home with Home Health Transportation Arrangement TBD Referrals Initiated Home Health Additional Comment Spouse agreeable to HH, no agency preference If patient plan is home with home health No : Has signed face to face form been completed? Medicare Choice List Provided Yes SNF/HH Preference No Hh agency preference
[2022-07-10 18:44] LABS: Appearance Urine UA CLEAR; Bilirubin Urine UA NEGATIVE (NEGATIVE); Color Urine UA YELLOW; Glucose Urine UA NEGATIVE (Negative); Ketones Urine UA NEGATIVE (NEGATIVE); Leukocyte Esterase Urine UA 1+ (NEGATIVE); Nitrite Urine UA NEGATIVE (Negative); Occult Blood Urine UA NEGATIVE (Negative); Protein Urine UA TRACE (Negative); Specific Gravity Urine UA 1.025 (1.000-1.035); Urobilinogen Urine UA 0.2 E.U./dL (0.2)
[2022-07-10 18:57] LABS: pH Urine UA 5.5 (4.5-8.0)
[2022-07-10 19:09] LABS: RBC Urine None Seen (0-5/HPF); Squamous Epithelial Cell Urine 5-10 /HPF (0-5/HPF); WBC Urine 10-30/HPF (0-5/HPF)
[2022-07-10 19:10] LABS: Culture Indicated Urine Specimen Cultured
[2022-07-10 19:15] LABS: Bacteria Urine Few (2-10)
[2022-07-10] MEDS: ALBUTEROL/IPRATROPIUM 3 ML AMPUL INH (20:06)
[2022-07-11] VITALS (11 sets, daily range): BP systolic 161–189; BP diastolic 60–95; PULSE 73–107; RESP 16–23; TEMP 36.1–37.4; O2SAT 92–98
[2022-07-11] MEDS: HYDROMORPHONE 0.5 MG INJ IV ×2 (01:20→15:15)
[2022-07-11] MEDS: levoFLOXacin 750 MG/150 ML PIGGYBACK 100 MG IV (05:22)
[2022-07-11] MEDS: LEVOTHYROXINE 100 MCG TABLET PO (05:23)
[2022-07-11] MEDS: METOPROLOL ER 25 MG TABLET PO ×2 (05:23→08:24)
[2022-07-11 06:15] LABS: Add Manual Diff / Slide Review NO; Basophils Absolute Auto 0 /uL (0-100); Basophils Percent Auto 0.3 % (0-2); Eosinophils Absolute Auto 100 /uL (0-450); Eosinophils Percent Auto 0.5 % (2-4); Hematocrit 35.8 % (36-46); Hemoglobin 12.3 g/dL (12.0-16.0); Lymphocytes Absolute Auto 1600 /uL (1100-4500); Lymphocytes Percent Auto 12.5 % (25-40); Mean Corpuscular HGB Conc 34.2 % (30-36); Mean Corpuscular Hemoglobin 31.3 PG (26-34); Mean Corpuscular Volume 91.5 fL (80-100); Monocytes Absolute Auto 1200 /uL (0-900); Monocytes Percent Auto 9.4 % (3-14); Neutrophils Absolute Auto 9600 /uL (1500-7000); Neutrophils Percent Auto 77.3 % (50-75); Platelet Count 173 X10^3/uL (150-400); Red Blood Cell Count 3.92 X10^6/uL (4.0-5.2); Red Cell Distribution Width 12.8 % (11.6-14.8); White Blood Cell Count 12.5 X10^3/uL (4.5-11.0)
[2022-07-11 06:19] LABS: Alanine Aminotransferase 36 IU/L (<35); Albumin 3.7 g/dL (3.5-5.0); Alkaline Phosphatase 91 U/L (38-126); Aspartate Aminotransferase 59 IU/L (14-36); BUN Creatinine Ratio 37.1 (6-22); Bilirubin Total 0.6 mg/dL (0.2-1.3); Blood Urea Nitrogen 23 mg/dL (7-17); Calcium 8.4 mg/dL (8.4-10.2); Carbon Dioxide 28 mmol/L (22-32); Chloride 103 mmol/L (98-107); Estimated Glomerular Filt Rate > 60 mL/min (>60); Globulin 3.6 g/dL (1.7-4.1); Glucose 104 mg/dL (80-110); HEMOLYSIS < 15 (0-50); Magnesium 1.8 mg/dL (1.6-2.3); Potassium 3.8 mmol/L (3.4-5.1); Sodium 136 mmol/L (137-145); Total Protein 7.3 g/dL (6.3-8.2)
[2022-07-11 08:12] LABS: Acinetobacter baumannii Not Detected (Not Detect); Candida albicans Not Detected (Not Detect); Candida glabrata Not Detected (Not Detect); Candida krusei Not Detected (Not Detect); Candida parapsilosis Not Detected (Not Detect); Candida tropicalis Not Detected (Not Detect); E. coli Not Detected (Not Detect); Enterobacter cloacae complex Not Detected (Not Detect); Enterobacteriaceae species Not Detected (Not Detect); Enterococcus species Not Detected (Not Detect); Haemophilus influenzae Not Detected (Not Detect); Listeria monocytogenes Not Detected (Not Detect); Neisseria meningitidis Not Detected (Not Detect); Proteus species Not Detected (Not Detect); Pseudomonas aeruginosa Not Detected (Not Detect); Serratia marcescens Not Detected (Not Detect); Staphylococcus species Not Detected (Not Detect); Streptococcus agalactiae (Gr B Not Detected (Not Detect); Streptococcus pneumonia Not Detected (Not Detect); Streptococcus pyogenes (Gr A) Not Detected (Not Detect); Streptococcus species Not Detected (Not Detect)
[2022-07-11] MEDS: ALBUTEROL/IPRATROPIUM 3 ML AMPUL INH (08:22)
[2022-07-11] MEDS: ACETAMINOPHEN 325 MG TABLET 650 MG PO (08:22)
[2022-07-11] MEDS: ENOXAPARIN 40 MG/0.4 ML SYRINGE SUBCUT (08:22)
--- NOTE | 2022-07-11 12:50 | PT.IPTN ---
Current Diagnoses Sepsis, unspecified organism (07/08/22) Physical Therapy Treatment Note M2 PT-IP Current Condition Start: 07/09/22 16:36 Freq: NEEDED Status: Active Protocol: Document 07/09/22 15:00 AB (Rec: 07/09/22 16:52 AB [email or web address]) Physical Therapy Current Condition Current Condition Evaluation Date 07/09/22 Treatment Diagnosis GLF; R humeral fx; PNA; difficulty in walking Onset Date 07/08/22 M3 PT-IP Subjective Start: 07/09/22 16:36 Freq: NEEDED Status: Active Protocol: Document 07/11/22 12:37 LJ (Rec: 07/11/22 12:49 LJ [id number]) Subjective Physical Therapy Visit Type Type Treatment Note Visit Start Time 11:24 Visit Stop Time 11:51 Total Visit Minutes 27 Number of SIZE MARKER Visits 1 Physical Therapy Visit Comments Patient Comments agreeable to do PT Therapy Pain Assessment Pain When Pain Assessed During Mobility Location Right Arm Scale Used pain scale not stated Pain Management Techniques Distraction,Modification of Treatment,Re-positioning, Timing of Activity with Medications M4 PT-IP Mobility and Gait Start: 07/09/22 16:36 Freq: NEEDED Status: Active Protocol: Document 07/11/22 12:37 LJ (Rec: 07/11/22 12:49 LJ [id number]) PT-Bed Mobility Assessment Supine to Sit Supine to Sit Maximum Assistance,2 Person Assistance,Head of Bed Elevated,Bedrails Scooting Scooting to Edge of Bed Maximum Assistance PT-Transfer Assessment Sit to and From Stand Sit to and from Stand Maximum Assistance,1 Person Assistance,Use of Upper Extremities Equipment Transfer Assistive Device Gait Belt,Flaco Walker Orthotic/Prosthetic Devices or Brace: No Transfers Transfer Destination Chair Transfer Technique Stand Step Pivot Transfer Ability Level of Assist Maximum Assistance Comments Mobility Comments Completed supine>sit and scooting to side of bed MaxA x2 with max cueing. Required MaxA x2 initially for sitting on side of bed but able to hold herself up briefly using bed cane and bed rail. Given assist for sitting for safety. Pt then stood MaxA x1 with max cues. Pt took shuffling steps to sit on BSC next to bed. Pt then stood again MaxA x1 and cueing then ambulated ~ 5' to chair. Cues for standing tall and not bearing weight with RUE. She tried to use the hemiwalker with both hands. Pt then lowered self into chair. Pt was positioned in chair with pillows and given all needs within reach. Pts attempting to assist pt with walking by giving cues and repeating cues from therapist. Gait Assessment Gait Gait Assistance Required: Maximum Assistance,1 Person Assist Distance (Feet) 5 Able to Maintain Weight Bearing Status Yes During Gait Assistive Devices Assistive Device Gait Belt,Flaco Walker Gait Deviations General Gait Pattern Decreased Stride Length, Decreased Feet Clearance,Step- to Gait Factors Limiting Gait Function Factors Limiting Gait Function Decreased Activity Tolerance, Decreased Strength,Difficulty Following Directions,Limited Range of Motion,Pain,Poor Balance,Poor Safety Awareness PT-Balance Assessment Sitting Balance and Reactions Static Sitting Balance Ability Fair Dynamic Sitting Balance Ability Fair Standing Balance and Reactions Static Standing Balance Ability Poor Dynamic Standing Balance Ability Poor Device Used hemiwalker M5 PT-IP Objective Assessments Start: 07/09/22 16:36 Freq: NEEDED Status: Active Protocol: Document 07/09/22 15:00 AB (Rec: 07/09/22 16:52 AB [email or web address]) Orientation Orientation/Cognition Level of Alertness Confusional State Orientation Name Language Function Ability Hard of Hearing Safety Awareness Decreased Safety Awareness Memory Description Short Term Impaired,Alf Impaired Comments slow responses to questions and instructions Gross Range of Motion Lower Extremity ROM Assessment Within Functional Limits Strength Lower Extremity Strength Hip 3+/5 Knee 4-/5 Muscle Tone Muscle Tone WNL Yes M6 PT-IP Treatment Start: 07/09/22 16:36 Freq: NEEDED Status: Active Protocol: Document 07/11/22 12:37 DAKOTAH (Rec: 07/11/22 12:49 [id number]) Physical Therapy Treatment Education Education Provided Precautions,Weight Bearing Status,Safety M7 PT-IP Assessment and Plan Start: 07/09/22 16:36 Freq: NEEDED Status: Active Protocol: Document 07/11/22 12:37 DAKOTAH (Rec: 07/11/22 12:49 [id number]) PT Summary Assessment and Plan Potential Rehabilitation Potential Fair Summary Impairments Pain,ROM,Strength,Balance, Coordination,Sensation,Tone, Cognition,Bed Mobility, Transfers,Gait,Activity Tolerance Progress Towards Goals Slow Progress due to Medical Issues,Slow Progress due to Activity Tolerance Assessment Summary pt requiring max A x 2 for bed mobility and max A for transfers and ambulation using hemiwalker. pt will require SNF rehab to improve stregnth and function. Goals Bed Mobility Goal Moderate Assistance Gait Goal Moderate Assistance,Flaco Walker Gait Distance 25 Other Goals improve bed mobility, transfers, ambulation without AD CGA 100 ft up/down 4 steps L rail + MASTER CONTROL ENGINEER CGA Days to Meet Goals 10 Frequency of Treatment Frequency Of Treatment Once a Day Treatment Plan Physical Therapy Treatment Plan Bed Mobility Training,Transfer Training,Gait Training, Therapeutic Exercise,Balance Retraining,Discharge Planning, Hot or Cold Pack,Neuromuscular Re-ed,Coordination Retraining ,Manual Therapy Precautions Shoulder Precautions Sling Weight Bearing Status Weight Bearing Status Non-Weight Bearing Allowed Weight Bearing Amount (enter % RUE NWB or #) (%) Recommendations To Nursing Amount of Assist Needed 2 Person Assist Discharge Recommendations PT Discharge Recommendations SNF Rehab Transportation Needs at Discharge Wheelchair/Cabulance
--- NOTE | 2022-07-11 12:50 | PT.IPTN ---
Current Diagnoses Sepsis, unspecified organism (07/08/22) Physical Therapy Treatment Note M2 PT-IP Current Condition Start: 07/09/22 16:36 Freq: NEEDED Status: Active Protocol: Document 07/09/22 15:00 AB (Rec: 07/09/22 16:52 AB [email or web address]) Physical Therapy Current Condition Current Condition Evaluation Date 07/09/22 Treatment Diagnosis GLF; R humeral fx; PNA; difficulty in walking Onset Date 07/08/22 M3 PT-IP Subjective Start: 07/09/22 16:36 Freq: NEEDED Status: Active Protocol: Document 07/11/22 12:37 LJ (Rec: 07/11/22 12:49 LJ [id number]) Subjective Physical Therapy Visit Type Type Treatment Note Visit Start Time 11:24 Visit Stop Time 11:51 Total Visit Minutes 27 Number of DIESEL INSPECTOR Visits 1 Physical Therapy Visit Comments Patient Comments agreeable to do PT Therapy Pain Assessment Pain When Pain Assessed During Mobility Location Right Arm Scale Used pain scale not stated Pain Management Techniques Distraction,Modification of Treatment,Re-positioning, Timing of Activity with Medications M4 PT-IP Mobility and Gait Start: 07/09/22 16:36 Freq: NEEDED Status: Active Protocol: Document 07/11/22 12:37 LJ (Rec: 07/11/22 12:49 LJ [id number]) PT-Bed Mobility Assessment Supine to Sit Supine to Sit Maximum Assistance,2 Person Assistance,Head of Bed Elevated,Bedrails Scooting Scooting to Edge of Bed Maximum Assistance PT-Transfer Assessment Sit to and From Stand Sit to and from Stand Maximum Assistance,1 Person Assistance,Use of Upper Extremities Equipment Transfer Assistive Device Gait Belt,Flaco Walker Orthotic/Prosthetic Devices or Brace: No Transfers Transfer Destination Chair Transfer Technique Stand Step Pivot Transfer Ability Level of Assist Maximum Assistance Comments Mobility Comments Completed supine>sit and scooting to side of bed MaxA x2 with max cueing. Required MaxA x2 initially for sitting on side of bed but able to hold herself up briefly using bed cane and bed rail. Given assist for sitting for safety. Pt then stood MaxA x1 with max cues. Pt took shuffling steps to sit on BSC next to bed. Pt then stood again MaxA x1 and cueing then ambulated ~ 5' to chair. Cues for standing tall and not bearing weight with RUE. She tried to use the hemiwalker with both hands. Pt then lowered self into chair. Pt was positioned in chair with pillows and given all needs within reach. Pts attempting to assist pt with walking by giving cues and repeating cues from therapist. Gait Assessment Gait Gait Assistance Required: Maximum Assistance,1 Person Assist Distance (Feet) 5 Able to Maintain Weight Bearing Status Yes During Gait Assistive Devices Assistive Device Gait Belt,Flaco Walker Gait Deviations General Gait Pattern Decreased Stride Length, Decreased Feet Clearance,Step- to Gait Factors Limiting Gait Function Factors Limiting Gait Function Decreased Activity Tolerance, Decreased Strength,Difficulty Following Directions,Limited Range of Motion,Pain,Poor Balance,Poor Safety Awareness PT-Balance Assessment Sitting Balance and Reactions Static Sitting Balance Ability Fair Dynamic Sitting Balance Ability Fair Standing Balance and Reactions Static Standing Balance Ability Poor Dynamic Standing Balance Ability Poor Device Used hemiwalker M5 PT-IP Objective Assessments Start: 07/09/22 16:36 Freq: NEEDED Status: Active Protocol: Document 07/09/22 15:00 AB (Rec: 07/09/22 16:52 AB [email or web address]) Orientation Orientation/Cognition Level of Alertness Confusional State Orientation Name Language Function Ability Hard of Hearing Safety Awareness Decreased Safety Awareness Memory Description Short Term Impaired,Long-Term Impaired Comments slow responses to questions and instructions Gross Range of Motion Lower Extremity ROM Assessment Within Functional Limits Strength Lower Extremity Strength Hip 3+/5 Knee 4-/5 Muscle Tone Muscle Tone WNL Yes M6 PT-IP Treatment Start: 07/09/22 16:36 Freq: NEEDED Status: Active Protocol: Document 07/11/22 12:37 DAKOTAH (Rec: 07/11/22 12:49 [id number]) Physical Therapy Treatment Education Education Provided Precautions,Weight Bearing Status,Safety M7 PT-IP Assessment and Plan Start: 07/09/22 16:36 Freq: NEEDED Status: Active Protocol: Document 07/11/22 12:37 DAKOTAH (Rec: 07/11/22 12:49 [id number]) PT Summary Assessment and Plan Potential Rehabilitation Potential Fair Summary Impairments Pain,ROM,Strength,Balance, Coordination,Sensation,Tone, Cognition,Bed Mobility, Transfers,Gait,Activity Tolerance Progress Towards Goals Slow Progress due to Medical Issues,Slow Progress due to Activity Tolerance Assessment Summary pt requiring max A x 2 for bed mobility and max A for transfers and ambulation using hemiwalker. pt will require SNF rehab to improve stregnth and function. Goals Bed Mobility Goal Moderate Assistance Gait Goal Moderate Assistance,Flaco Walker Gait Distance 25 Other Goals improve bed mobility, transfers, ambulation without AD CGA 100 ft up/down 4 steps L rail + SUPERVISOR BLEACH PLANT CGA Days to Meet Goals 10 Frequency of Treatment Frequency Of Treatment Once a Day Treatment Plan Physical Therapy Treatment Plan Bed Mobility Training,Transfer Training,Gait Training, Therapeutic Exercise,Balance Retraining,Discharge Planning, Hot or Cold Pack,Neuromuscular Re-ed,Coordination Retraining ,Manual Therapy Precautions Shoulder Precautions Sling Weight Bearing Status Weight Bearing Status Non-Weight Bearing Allowed Weight Bearing Amount (enter % RUE NWB or #) (%) Recommendations To Nursing Amount of Assist Needed 2 Person Assist Discharge Recommendations PT Discharge Recommendations SNF Rehab Transportation Needs at Discharge Wheelchair/Cabulance
--- NOTE | 2022-07-11 12:55 | ST.IPCSEOM ---
Visit Care Team Role Provider Type Dannie Burrell MD Primary Care Provider Non-Staff Specialty: Internal Medicine Address: [address], [address] Email: Suleman Gallegos MD Other Providers Physician Specialty: Orthopedics Orthopedic Surgery Address: [address] [place] [address], [id number] Email: [email or web address] Yo Givens DO Emergency Provider Physician Referring Provider Specialty: Emergency Medicine Address: [address] [place] [address], [address] Email: [email or web address] Ad[facility] Provider Physician Attending Provider Specialty: Hospitalist Internal Medicine Address: [address] [place] [address], [facility] Email: Current Diagnoses Sepsis, unspecified organism (07/08/22) Past Medical History (Last Updated 07/09/22 @ 00:58 by EDWIGE TeresaSAMI) Dementia (Medical) Essential hypertension (Medical) Hyperlipidemia (Medical) Hypothyroidism (acquired) (Medical) Speech-Language Pathology Swallow Evaluation CORE MEASURES ABSTRACTOR Clinical Swallow Evaluation Start: 07/09/22 15:44 Freq: Status: Active Protocol: Document 07/11/22 12:35 LNK (Rec: 07/11/22 12:55 LNK [id number]) Clinical Swallow Evaluation Session Time Visit Start Time 11:30 Visit Stop Time 12:15 Total Visit Minutes 45 Referral Referring Provider Setting Assessment Location Acute Care Visit Type Note Type Re-evaluation Next Note Type Next Note Type Treatment Note Patient Information Identification Type Name,Wristband History Per H&P: Keyona Tran is an 81-year-old female with a history dementia, hyperthyroidism, hypertension, who presented to the ED following a mechanical fall at home she fell where she hit her face with no loss of consciousness, presented to the ED via her complaining of right arm pain. Patient was initially being evaluated for mechanical fall with facial trauma and right humerus fracture, when she was found have mild leukocytosis and cxr showed mild atypical pneumonia and required oxygen. Per , she has had months of cough. She often coughs when eating. Initial attempt at swallow evaluation was attempted, but pt was fatigued and could not complete the assessment. Subjective Observations operations supervisor 2nd shift nursing reported that the pt had difficulty swallowing her medications with water, having choked when administered. Pt was then made PMO status. Pt was in bedside chair with her in the room. Reported by Patient Pain Scale Used Numeric (0 - 10) Other Symptoms Coughing,Weight loss,Other Comment Wet voicing - will clear with cues to clear throat and swallow Current Diet Dysphagia advanced,Tangier thick liquids Baseline Feeding Method Needs some assistance Objective Assessment Mental Status Alert,Responsive,Cooperative Oral Integrity WFL Dentition Within normal limits Lip Function Mild impairment Observation of Lips at Rest Symmetrical Pucker Within normal limits Lip Retraction Within normal limits Alternating Pucker/Lip Retraction Reduced range of motion, Incoordination Tongue Function Mild impairment Observations of Tongue at Rest Within normal limits Tongue Protrusion Reduced range of motion Tongue Lateralization Reduced strength Jaw Function Within normal limits Observations of Jaw at Rest Within normal limits Jaw Opening Within normal limits Jaw Closing Within normal limits Hard/Soft Palate Function Within normal limits Observations of Hard/Soft Palate Within normal limits Comment Pt demonstrated improved attention and responding. Pt remains pleasantly confused. respond. Pt was in bedside chair with lunch tray on bedside chair. Food and Liquid Trials Position During Assessment Upright (90 degrees),In bed Liquids Trialed Thin Oral Phase Comments Pt was able to sip water from a cup safely. Crushed meds in pudding recommended Pharyngeal Phase Comments Pt exhibited wet/gurgly vocal quality following PO intake and between bites/swallows. Suspect pt has food residue and/or secretions remaining in her pharynx. Prompting pt to cough/clear throat clears her vocal quality. Pt safely tolerated cup sips of NTL. Comment Pt appeared improved overall. She was more willing to eat her lunch; although she does not eat much. Protein shake was available on tray. Results Pt demonstrated improved swallow function and airway protection. Pt needs cues to clear her throat to clear voice after swallows. suspect secretions alsao pool in the pharynx, requiring cues to clear throat often. Continue to recommend modified diet to increase oral intake and decrease risk for aspiration Findings Swallowing Function Oropharyngeal phase dysphagia Severity of Swallow Impairment Mildly-moderately impaired Contributing Factors to Swallow Reduced oral strength/ Impairment coordination/sensation, Impaired oral-pharyngeal transport,Delayed swallow initiation,Excessive oral residue,Excessive pharyngeal residue Prognosis Fair Based on Cognitive status,Age, Comorbidities,Duration of symptoms/severity Recommendations Instrumental Assessment No Swallowing Treatment Yes Frequency daily while inpatient status Recommended Solids Dysphagia Mechanical Recommended Liquids Tangier Other Recommendations CUP SIPS 1 AT A TIME Safety Precautions/Swallowing Feed only when alert,Reduce Recommendations distractions,Remain upright ( 90 degrees) during all oral intake,Needs verbal cues to use recommended strategies, Upright position at least 30 minutes after meals,Small bites and sips when eating, Slow rate; swallow between bites Medication Recommendations Whole in Carrier,Crushed in Carrier,One at a Time Discharge Recommendations long-term care facility,Home with Home Health,Other ( comment) Comments Home with daily/weekly assistance Education Patient/Caregiver Education Described results of evaluation,Patient expressed understanding of evaluation, Patient expressed agreement with goals & treatment plans, Family/caregivers expressed understanding of evaluation, Family/caregivers expressed agreement with goals & treatment plans,Patient expressed understanding of safety precautions,Patient expressed understanding of feeding recommendations,Family /caregivers expressed understanding of safety precautions,Family/caregivers expressed understanding of feeding recommendations, Patient requires further education/training,Family/ caregivers require further education/training Goals Short-term Goals 1. Re-assess OME and swallow to inform plan of care and dietary recommendations. Long-term Goals The pt will safely tolerate least restrictive diet to meet her nutrition and hydration needs.
--- NOTE | 2022-07-11 17:48 | PM.PN.1 ---
Subjective Subjective Date Patient Seen: 07/11/22 Interval history: 81-year-old female history of dementia came in after she fell at home. Noted to be hypoxic with appearance of pneumonia on lung imaging. Also has fracture of right shoulder. Patient seems to be improving with decrease in O2 requirements and improved mentation. She is having some discomfort related to the right shoulder. Exam Vital Signs (past 8 hours): - 07/11/22 10:53 07/11/22 14:00 Temperature 98.8 F Pulse Rate 75 76 Respiratory Rate 18 Blood Pressure 166/60 H 161/69 H Pulse Oximetry 95 Oxygen Flow Rate 2.5 Fraction of Inspired Oxygen 40 SaO2/FiO2 Ratio 235 Oxygen Delivery Method Room Air,Simple Mask Oxygen Flow Rate 2.5 Narrative Exam Narrative: General: Alert pleasant and cooperative Lungs: Diminished bilaterally Heart: Regular rhythm Abdomen: Soft Extremities: No edema Objective Labs Result Diagrams: 07/11/22 05:29 07/11/22 05:29 Labs: Laboratory Results - last 24 hr 07/08/22 07/10/22 07/11/22 18:22 18:41 05:29 WBC 12.5 H RBC 3.92 L Hgb 12.3 Hct 35.8 L MCV 91.5 MCH 31.3 MCHC 34.2 RDW 12.8 Plt Count 173 Neut % (Auto) 77.3 H Lymph % (Auto) 12.5 L [place] % (Auto) 9.4 Eos % (Auto) 0.5 L Baso % (Auto) 0.3 Neut # (Auto) 9600 H Lymph # (Auto) 1600 [place] # (Auto) 1200 H Eos # (Auto) 100 Baso # (Auto) 0 Sodium Potassium Chloride Carbon Dioxide BUN Creatinine Estimated GFR BUN/Creatinine Ratio Glucose Calcium Magnesium Total Bilirubin AST ALT Alkaline Phosphatase Total Protein Albumin Globulin Albumin/Globulin Ratio Urine Color Yellow Urine Appearance Clear Urine pH 5.5 Ur Specific [place] 1.025 Urine Protein Trace H Urine Glucose (UA) Negative Urine Ketones Negative Urine Occult Blood Negative Urine Nitrate Negative Urine Bilirubin Negative Urine Urobilinogen 0.2 Ur Leukocyte Esterase 1+ H Urine RBC None seen Urine WBC 10-30/hpf H Ur Squamous Epith Cells 5-10 /hpf H Urine Bacteria Few (2-10) H Ur Culture Indicated? Specimen cultured A. baumannii (PCR) Not detected Viola albicans (PCR) Not detected C. glabrata (PCR) Not detected C. krusei (PCR) Not detected C. parapsilosis (PCR) Not detected C. tropicalis (PCR) Not detected Enterobacteriac sp PCR Not detected E. cloacae complex PCR Not detected Enterococcus sp PCR Not detected E. coli (PCR) Not detected H. influenzae (PCR) Not detected Klebsiella oxytoca PCR Not detected Klebsiella pneumoniae Not detected List. monocytogenes PCR Not detected N. meningitidis (PCR) Not detected Proteus species (PCR) Not detected Serratia marcescens PCR Not detected Staphylococcus sp PCR Not detected Staph aureus (PCR) Not detected mecA-Methicil Res Gene Loan Interviewer Streptococcus sp PCR Not detected Group A Strep (PCR) Not detected Strep agalactiae (PCR) Not detected Strep pneumoniae (PCR) Not detected P. aeruginosa (PCR) Not detected [place]/B-Vanco Res Genes Loan Interviewer KPC-Carbap Res Gene PCR Loan Interviewer 07/11/22 05:29 WBC RBC Hgb Hct MCV MCH MCHC RDW Plt Count Neut % (Auto) Lymph % (Auto) [place] % (Auto) Eos % (Auto) Baso % (Auto) Neut # (Auto) Lymph # (Auto) [place] # (Auto) Eos # (Auto) Baso # (Auto) Sodium 136 L Potassium 3.8 Chloride 103 Carbon Dioxide 28 BUN 23 H Creatinine 0.62 Estimated GFR > 60 BUN/Creatinine Ratio 37.1 H Glucose 104 Calcium 8.4 Magnesium 1.8 Total Bilirubin 0.6 AST 59 H ALT 36 H Alkaline Phosphatase 91 Total Protein 7.3 Albumin 3.7 Globulin 3.6 Albumin/Globulin Ratio 1.0 Urine Color Urine Appearance Urine pH Ur Specific [place] Urine Protein Urine Glucose (UA) Urine Ketones Urine Occult Blood Urine Nitrate Urine Bilirubin Urine Urobilinogen Ur Leukocyte Esterase Urine RBC Urine WBC Ur Squamous Epith Cells Urine Bacteria Ur Culture Indicated? A. baumannii (PCR) Viola albicans (PCR) C. glabrata (PCR) C. krusei (PCR) C. parapsilosis (PCR) C. tropicalis (PCR) Enterobacteriac sp PCR E. cloacae complex PCR Enterococcus sp PCR E. coli (PCR) H. influenzae (PCR) Klebsiella oxytoca PCR Klebsiella pneumoniae List. monocytogenes PCR N. meningitidis (PCR) Proteus species (PCR) Serratia marcescens PCR Staphylococcus sp PCR Staph aureus (PCR) mecA-Methicil Res Gene Streptococcus sp PCR Group A Strep (PCR) Strep agalactiae (PCR) Strep pneumoniae (PCR) P. aeruginosa (PCR) [place]/B-Vanco Res Genes KPC-Carbap Res Gene PCR [facility] Medical History (Updated 07/09/22 @ 00:58 by EDWIGE Teresa-) Dementia Essential hypertension Hyperlipidemia Hypothyroidism (acquired) Surgical History History of cataract removal with insertion of prosthetic lens S/P total abdominal hysterectomy and bilateral salpingo-oophorectomy Status post breast biopsy Social History household members: spouse Smoking Status: Former smoker alcohol intake: never Assessment & Plan Assessment & Plan narrative: 1. Acute hypoxemic respiratory failure secondary to pneumonia -etiology of pneumonia not certain, appears possibly viral on imaging -she also sound as if she is aspirating -on Levaquin for community acquired pneumonia -flu, covid, rsv negative -given apperance other etiologies entertained, but she has no travel recently, no pets, mold, etc -on admission was on heated high flow, now on nasal cannula -wean as able -RT following -sepsis ruled out 2. Mechanical fall resulting in facial trauma and right humerus fractur -Right shoulder x-ray demonstrated mildly displaced humeral neck fracture. -C-spine, pelvic x-ray, head CT, and CT of face are all negative for any acute processes or fractures.? -manage conservatively, sling for comfort, begin ROM exercises in 1 week -consult ordered for PT/OT 4. Dementia, chronic, present on admission -patient takes no known medications -monitor for delirium 5.Hypothyroidism -continue levothyroxine -TSH 4.16 6. Hypertension -continue metoprolol, HCTZ restarted due to high blood pressures 7. Malnutrition, acute on chronic -BMI 19.4 -patient's malnutrition places them at high risk for medical and surgical complications because of the malnutrition in relation to sepsis with acute hypoxic respiratory failure/pneumonia and in relation to her chronic illness.? This increases the difficulty in complexity of medical management and increases the chances poor outcomes such as mortality and morbidity as well as impaired wound healing, and immune suppression. -dietary consult ordered to evaluate and implement steps to improve caloric intake and nutrition. Time Spent With Patient Critical Care time: I spent a total of [] minutes of critical care time on this patient's care today; this time is exclusive of procedural time. Quality VTE Deep Vein Thrombosis/Pulmonary Embolism Present on Admission: No
--- NOTE | 2022-07-11 19:48 | PC.NURSE ---
TOLERATED oob TO CHAIR FOR SEVERAL HOURS TODAY. 1-2 pa ASSIST W/ HEMIWALKER. NEEDS FREQUENT SAFETY CUES AND SUPERVISION WHEN TURNING. GAIT BELT USED DURING TRANSFERS. UP W/ 1PA TO [facility], URINATED 200CC CLEAR YELLOW URINE. SAT UP IN HER CHAIR FOR SUPPER, BUT DID NOT EAT MUCH. PRN DILAUDED GIVEN X 1 THRU THE SHIFT FOR BTP, TYLENOL GIVEN IN AM W/ FAIR EFFECT. + CSM CHECKS FOR RUE, SLING IS INTACT, NO SKIN ISSUES. ENCOURAGED HER TO KEEP HER SHOULDER STABLE BUT TO MOVE HER FINGERS FREQUENTLY AND TO SUPPORT HER ARM W/ PILLOWS. O2 DECREASED TO 2LPM VIA NC. O2 PROBE REAPPLIED ON HER FINGERS, HER HANDS ARE VERY COLD, AND THE READING ON THE MONITOR APPEARS TO BE FALSE AT 64%. NEW PROBE APPLIED, AND SPO2 100%. HERE TO SEE PATIENT, IS CLEARLY HOPEFUL HIS CAN RETURN TO THE FAMILY HOME. UPDATE GIVEN TO ANGELO THAT HIS IS STILL VERY WEAK, AND THAT WE ARE ALL WORKING TOGETHER FOR THE COMMON GOAL OF GETTING HER HOME SAFELY, IF SHE CONTINUES TO PROGRESS. WILL ADD IS/FLUTTER VALVE FOR ASSISTANCE W/ HER RESPIRATORY STATUS. REPORT TO NOC.
[2022-07-11] MEDS: SENNOSIDES 8.6 MG TABLET 17.2 MG PO (20:49)
[2022-07-12] VITALS (11 sets, daily range): BP systolic 171–186; BP diastolic 73–89; PULSE 76–94; RESP 14–21; TEMP 36.4–36.7; O2SAT 91–100
[2022-07-12] MEDS: LEVOTHYROXINE 100 MCG TABLET PO (06:07)
[2022-07-12 06:26] LABS: Add Manual Diff / Slide Review NO; Basophils Absolute Auto 0 /uL (0-100); Basophils Percent Auto 0.3 % (0-2); Eosinophils Absolute Auto 100 /uL (0-450); Eosinophils Percent Auto 0.8 % (2-4); Hematocrit 33.7 % (36-46); Hemoglobin 11.7 g/dL (12.0-16.0); Lymphocytes Absolute Auto 1300 /uL (1100-4500); Lymphocytes Percent Auto 13.4 % (25-40); Mean Corpuscular HGB Conc 34.8 % (30-36); Mean Corpuscular Hemoglobin 31.6 PG (26-34); Mean Corpuscular Volume 90.9 fL (80-100); Monocytes Absolute Auto 900 /uL (0-900); Monocytes Percent Auto 8.6 % (3-14); Neutrophils Absolute Auto 7700 /uL (1500-7000); Neutrophils Percent Auto 76.9 % (50-75); Platelet Count 165 X10^3/uL (150-400); Red Blood Cell Count 3.71 X10^6/uL (4.0-5.2); Red Cell Distribution Width 12.3 % (11.6-14.8)
[2022-07-12 06:36] LABS: BUN Creatinine Ratio 36.2 (6-22); Blood Urea Nitrogen 21 mg/dL (7-17); Calcium 8.3 mg/dL (8.4-10.2); Carbon Dioxide 28 mmol/L (22-32); Chloride 100 mmol/L (98-107); Estimated Glomerular Filt Rate > 60 mL/min (>60); Glucose 97 mg/dL (80-110); HEMOLYSIS < 15 (0-50); Potassium 3.3 mmol/L (3.4-5.1); Sodium 134 mmol/L (137-145)
[2022-07-12] MEDS: OXYCODONE/ACETAMINOPHEN 5/325 TABLET 1 TAB PO ×2 (08:12→17:39)
[2022-07-12] MEDS: ENOXAPARIN 40 MG/0.4 ML SYRINGE SUBCUT (08:13)
[2022-07-12] MEDS: METOPROLOL ER 25 MG TABLET PO (08:13)
[2022-07-12] MEDS: hydroCHLOROthiazide 25 MG TABLET PO (08:14)
[2022-07-12] MEDS: ALBUTEROL/IPRATROPIUM 3 ML AMPUL INH ×4 (09:01→19:22)
--- NOTE | 2022-07-12 09:18 | ST.IPDYTX ---
Visit Care Team Role Provider Type Dannie Burrell MD Primary Care Provider Non-Staff Specialty: Internal Medicine Address: [address], [address] Email: Suleman Gallegos MD Other Providers Physician Specialty: Orthopedics Orthopedic Surgery Address: [address] [place] [address], [id number] Email: [email or web address] [email or web address] DO Emergency Provider Physician Referring Provider Specialty: Emergency Medicine Address: [address] [place] [address], [address] Email: [email or web address] Hayley Barrett [facility] Admit Provider Physician Attending Provider Specialty: Hospitalist Internal Medicine Address: [address] [place] [address], [facility] Email: KITCHEN PORTER Dysphagia Treatment KITCHEN PORTER Dysphagia Treatment Start: 07/10/22 13:15 Freq: Status: Active Protocol: Document 07/12/22 09:08 JOANA (Rec: 07/12/22 09:18 ZS [id number]) Dysphagia Treatment Session Time Visit Start Time 08:00 Visit Stop Time 08:40 Total Visit Minutes 40 Setting Assessment Location Acute Care Visit Type Note Type Treatment Note Next Note Type Next Note Type Treatment Note Patient Information Identification Type Name,ID Wristband Subjective Observations Pt was seated on commode with morning meal at bedside when KITCHEN PORTER arrived. Pt given dilauded crushed in carrier via spoon to treat right shoulder pain ( pt rated as 8/10 pain). Once she finished on the commode, pt was transferred to chair with 1 person assist. Treatment Liquids Trialed [place] Solids Trialed Dysphagia Mechanical Administration Type Tea Spoon,Dependent Feeding Oral Strategies Upright at 90 degrees, Controlled Bite/Sip Size Pharyngeal Strategies Sitting Upright (90 deg),Small Bites and Sips Additional Dysphagia Treatment Cueing to cough/clear throat Strategies and re-swallow Treatment Activities Pt was observed while she ate morning meal (scrambled eggs, cottage cheese, NTL apple juice, NTL peach smoothie, cream of wheat). Pt refused cream of wheat and cottage cheese. She ate 2 bites of eggs, 3 spoonfuls of apple juice, and 5 spoonfuls of peach smoothie. Assessment Patient Response to Treatment Good Rehab Potential Good Assessment of Improvement Pt continued to present with wet/gurgly vocal quality following consumption of liquids, but cleared when prompted to cough/clear throat and re-swallow. Pt stated eggs were challenging to swallow and required 1 spoonful following each bite of eggs. On final 3 spoonfuls of smoothie, pt exhibited spontaneous use of cough/clear and re-swallow strategy and maintained clear vocal quality following each bite. NSG reported improved cognition and energy today, stating pt is much better at following instructions today. Diet Recommendations Recommendations Continue Current Diet Liquids Order [place] Diet Order Dysphagia Mechanical Medication Recommendations Whole in Carrier,Crushed in Carrier,One at a Time Additional Dietary Needs 1:1 Assistance,Reminders to Use Strategies Aspiration Precautions Recommended Precautions Upright at 90 Degrees,Frequent Rest Periods,Small Bites/Sips ,Liquids from Spoon Treatment Plan Placement Recommendation after Discharge Home with Home Health Appropriate for Continued Therapy Yes Therapy Recommendations Continued monitoring and advancement of diet as indicated. Reminders to use strategies. Family/caregiver training and education Dysphagia Goals Pt will safely tolerate least restrictive diet to meet her nutrition and hydration needs.
[2022-07-12] MEDS: ACETAMINOPHEN 325 MG TABLET 650 MG PO (10:44)
--- NOTE | 2022-07-12 12:41 | PT.IPTN ---
Current Diagnoses Sepsis, unspecified organism (07/08/22) Physical Therapy Treatment Note M2 PT-IP Current Condition Start: 07/09/22 16:36 Freq: NEEDED Status: Active Protocol: Document 07/09/22 15:00 AB (Rec: 07/09/22 16:52 AB [id number]) Physical Therapy Current Condition Current Condition Evaluation Date 07/09/22 Treatment Diagnosis GLF; R humeral fx; PNA; difficulty in walking Onset Date 07/08/22 M3 PT-IP Subjective Start: 07/09/22 16:36 Freq: NEEDED Status: Active Protocol: Document 07/12/22 12:05 DAKOTAH (Rec: 07/12/22 12:41 LJ [id number]) Subjective Physical Therapy Visit Type Type Treatment Note Visit Start Time 11:46 Visit Stop Time 12:01 Total Visit Minutes 15 Notes BARBY Resendiz in room observing Number of PROCESS ARTIST Visits 2 Physical Therapy Visit Comments Patient Comments agreeable to do PT. in room Patient Goals go home Therapy Pain Assessment Pain When Pain Assessed At Rest Location Right Arm Intensity 6 Scale Used Numeric (0 - 10) Description Aching,Sharp,Throbbing,With Movement Pain Management Techniques Distraction,Modification of Treatment,Re-positioning, Timing of Activity with Medications M4 PT-IP Mobility and Gait Start: 07/09/22 16:36 Freq: NEEDED Status: Active Protocol: Document 07/12/22 12:05 DAKOTAH (Rec: 07/12/22 12:41 [id number]) PT-Bed Mobility Assessment Supine to Sit Supine to Sit Moderate Assistance,1 Person Assistance,Head of Bed Elevated,Bedrails Scooting Scooting to Edge of Bed Moderate Assistance PT-Transfer Assessment Sit to and From Stand Sit to and from Stand Minimal Assistance,1 Person Assistance,Use of Upper Extremities Equipment Transfer Assistive Device Gait Belt,Flaco Walker Orthotic/Prosthetic Devices or Brace: No Transfers Transfer Destination Chair Transfer Technique ambulated Transfer Ability Level of Assist Minimal Assistance,1 Person Assistance,Use of Upper Extremities Comments Mobility Comments Pt sitting up in bed c/o shoulder pain. encouraging pt to get up and walk. Pt agreed to get up. MaxA to don sling while pt sitting in bed. Pt able to move LEs toward side of bed with ModA x1 and assist with trunk righting. Pt able to scoot to edge of bed with assist. gait belt placed on pt then she began standing from bed without assist. Completed sit>stand CGA. Pt given flaco- walker and pt began walking forward but not moving walker forward. Pt cued to use walker while she ambulated. She was able o continue walking using the walker in left hand advancing it forward with properly. Pt ambulated in room ~40' and returned to chair. Pt able to lower self into chair using LUE. She was able to scoot to back of chair SBA. Pt given all needs within reach and in room. Gait Assessment Gait Gait Assistance Required: Contact Guard Assist,1 Person Assist Distance (Feet) 40 Able to Maintain Weight Bearing Status Yes During Gait Assistive Devices Assistive Device Gait Belt,Flaco Walker Gait Deviations General Gait Pattern Decreased Stride Length, Decreased Feet Clearance,Step- to Gait Factors Limiting Gait Function Factors Limiting Gait Function Decreased Activity Tolerance, Decreased Strength,Difficulty Following Directions,Limited Range of Motion,Pain,Poor Balance,Poor Safety Awareness PT-Balance Assessment Sitting Balance and Reactions Static Sitting Balance Ability Fair Dynamic Sitting Balance Ability Fair Standing Balance and Reactions Static Standing Balance Ability Poor Dynamic Standing Balance Ability Poor Device Used hemiwalker M5 PT-IP Objective Assessments Start: 07/09/22 16:36 Freq: NEEDED Status: Active Protocol: Document 07/09/22 15:00 AB (Rec: 07/09/22 16:52 AB [email or web address]) Orientation Orientation/Cognition Level of Alertness Confusional State Orientation Name Language Function Ability Hard of Hearing Safety Awareness Decreased Safety Awareness Memory Description Short Term Impaired,Longterm Impaired Comments slow responses to questions and instructions Gross Range of Motion Lower Extremity ROM Assessment Within Functional Limits Strength Lower Extremity Strength Hip 3+/5 Knee 4-/5 Muscle Tone Muscle Tone WNL Yes M6 PT-IP Treatment Start: 07/09/22 16:36 Freq: NEEDED Status: Active Protocol: Document 07/12/22 12:05 DAKOTAH (Rec: 07/12/22 12:41 LJ [id number]) Physical Therapy Treatment Education Education Provided Precautions,Weight Bearing Status,Safety M7 PT-IP Assessment and Plan Start: 07/09/22 16:36 Freq: NEEDED Status: Active Protocol: Document 07/12/22 12:05 DAKOTAH (Rec: 07/12/22 12:41 LJ [id number]) PT Summary Assessment and Plan Potential Rehabilitation Potential Fair Summary Impairments Pain,ROM,Strength,Balance, Coordination,Sensation,Tone, Cognition,Bed Mobility, Transfers,Gait,Activity Tolerance Progress Towards Goals Slow Progress due to Medical Issues,Slow Progress due to Activity Tolerance Assessment Summary Pt improving mobility and advancing gait with less assist. Able to use flaco- walker effectively however still requires cueing occasionally. states she is at baseline with ambulation except for using a walker. He is open to getting home health PT and son will be staying with them to assist pt as needed. Pt will continue to require PT to improve strength and mobility to improve function at home. She will need to pracitice using stairs and walking without AD 100' prior to DC home. Goals Bed Mobility Goal Moderate Assistance Gait Goal Moderate Assistance,Flaco Walker Gait Distance 25 Other Goals improve bed mobility, transfers, ambulation without AD CGA 100 ft up/down 4 steps L rail + ROOF SERVICE TECHNICIAN CGA Days to Meet Goals 10 Frequency of Treatment Frequency Of Treatment Once a Day Treatment Plan Physical Therapy Treatment Plan Bed Mobility Training,Transfer Training,Gait Training, Therapeutic Exercise,Balance Retraining,Discharge Planning, Hot or Cold Pack,Neuromuscular Re-ed,Coordination Retraining ,Manual Therapy Other Recommendations and Next Treatment Stair training and ambulation Focus CGA without AD Precautions Shoulder Precautions Sling Weight Bearing Status Weight Bearing Status Non-Weight Bearing Allowed Weight Bearing Amount (enter % RUE NWB or #) (%) Recommendations To Nursing Amount of Assist Needed 1 Person Assist Discharge Recommendations PT Discharge Recommendations Home with 01/02 Assist Available,Home Health
--- NOTE | 2022-07-12 13:55 | CM.DPNOTE ---
DCP Note Working on DCP coordination w/spouse, RISK ENGINEER Manju, ANDRE Wu and with hospitalist yesterday and today. Recommendation form therapy is SNF and patient expected to be medically cleared tomorrow In room w/patient, spouse and RISK ENGINEER Manju this morning; patient able to get up from bed with one person assist, using gait belt and renata walker. Patient has made remarkable improvement from yesterday and able to walk around room and back to chair Spouse feeling confident about taking patient home tomorrow and agreeable to Home health, no agency preference Discussed in home help and spouse resistant, states his son will be coming from [place] to assist and can stay w/he and patient as long as needed. Spouse says I'll look at the brochures once home when this MARINE SCIENTIST references [facility] and in home care [facility]ed call [facility] and could not get through. Placed call to [facility], spoke w/Isela Quan who felt HH RN/PT f/u for [facility] would be 24-48 hrs Faxed demo sheet, completed F2F, HH order and H+P to [facility]. DC expected Wednesday07.13.22 Plan: Home w/spouse and son likely tomorrow, [facility] RN/PT/OT/OUTBOUND SALES AGENT/COPIER FIELD SERVICE TECHNICIAN Fax DC Summary to [facility] when available FRIEDA
--- NOTE | 2022-07-12 15:22 | PM.PN.1 ---
Subjective Subjective Date Patient Seen: 07/12/22 Interval history: 81-year-old female history of dementia came in after she fell at home. Noted to be hypoxic with appearance of pneumonia on lung imaging. Also has fracture of right shoulder. Patient seems to be improving with decrease in O2 requirements and improved mentation. She is having some discomfort related to the right shoulder and has had difficulty with ambulation to this point. She did a bit better today. Hope is for discharge home with home health tomorrow. Exam Vital Signs (past 8 hours): - 07/12/22 08:00 07/12/22 09:01 07/12/22 12:16 Temperature 97.8 F Pulse Rate 91 H 81 76 Respiratory Rate 17 14 16 Blood Pressure 185/86 H Pulse Oximetry 91 93 94 Oxygen Flow Rate 0 07/12/22 12:00 07/12/22 13:04 Temperature 97.8 F Pulse Rate 76 76 Respiratory Rate 16 Blood Pressure 178/73 H 178/73 H Pulse Oximetry 100 Oxygen Flow Rate Fraction of Inspired Oxygen 21 SaO2/FiO2 Ratio 452 Oxygen Delivery Method Room Air Oxygen Flow Rate 0 Narrative Exam Narrative: GEN: more alert and awake than yesterday CV: regular rate and rhythm, no murmurs PULM: coarse breath sounds bilaterally ABD: soft, nontender, nondistended, no organomegaly EXT: warm and well perfused, R arm in sling NEURO: confused, moving all extremities Objective Labs Result Diagrams: 07/12/22 05:36 07/12/22 05:36 Labs: Laboratory Results - last 24 hr 07/12/22 07/12/22 05:36 05:36 WBC 10.0 RBC 3.71 L Hgb 11.7 L Hct 33.7 L MCV 90.9 MCH 31.6 MCHC 34.8 RDW 12.3 Plt Count 165 Neut % (Auto) 76.9 H Lymph % (Auto) 13.4 L [place] % (Auto) 8.6 Eos % (Auto) 0.8 L Baso % (Auto) 0.3 Neut # (Auto) 7700 H Lymph # (Auto) 1300 [place] # (Auto) 900 Eos # (Auto) 100 Baso # (Auto) 0 Sodium 134 L Potassium 3.3 L Chloride 100 Carbon Dioxide 28 BUN 21 H Creatinine 0.58 Estimated GFR > 60 BUN/Creatinine Ratio 36.2 H Glucose 97 Calcium 8.3 L PFSH Medical History (Updated 07/09/22 @ 00:58 by Hayley Barrett [facility]) Dementia Essential hypertension Hyperlipidemia Hypothyroidism (acquired) Surgical History History of cataract removal with insertion of prosthetic lens S/P total abdominal hysterectomy and bilateral salpingo-oophorectomy Status post breast biopsy Social History household members: spouse Smoking Status: Former smoker alcohol intake: never Assessment & Plan Assessment & Plan narrative: 1. Acute hypoxemic respiratory failure secondary to bacterial pneumonia, improved. -on Levaquin for community acquired pneumonia with continued improvement. -flu, covid, rsv negative -given apperance other etiologies entertained, but she has no travel recently, no pets, mold, etc -on admission was on heated high flow, now off of supplemental therapy at rest. -RT following -sepsis ruled out 2. Mechanical fall resulting in facial trauma and right humerus fracture -Right shoulder x-ray demonstrated mildly displaced humeral neck fracture. -C-spine, pelvic x-ray, head CT, and CT of face are all negative for any acute processes or fractures.? -manage conservatively, sling for comfort, begin ROM exercises in 1 week -consult ordered for PT/OT 4. Dementia, chronic, present on admission -patient takes no known medications -monitor for delirium 5.Hypothyroidism -continue levothyroxine -TSH 4.16 6. Hypertension -continue metoprolol, HCTZ restarted due to high blood pressures, she remains hypertensive today possibly due to pain but is otherwise asymptomatic. May need further medication adjustments. 7. Malnutrition, acute on chronic -BMI 19.4 -patient's malnutrition places them at high risk for medical and surgical complications because of the malnutrition in relation to sepsis with acute hypoxic respiratory failure/pneumonia and in relation to her chronic illness.? This increases the difficulty in complexity of medical management and increases the chances poor outcomes such as mortality and morbidity as well as impaired wound healing, and immune suppression. -dietary consult ordered to evaluate and implement steps to improve caloric intake and nutrition. Time Spent With Patient Critical Care time: I spent a total of [] minutes of critical care time on this patient's care today; this time is exclusive of procedural time. Quality VTE Deep Vein Thrombosis/Pulmonary Embolism Present on Admission: No
[2022-07-12] MEDS: SENNOSIDES 8.6 MG TABLET 17.2 MG PO (21:01)
[2022-07-13] VITALS (8 sets, daily range): BP systolic 109–195; BP diastolic 55–88; PULSE 70–93; RESP 16–18; TEMP 36.3–36.7; O2SAT 90–96
[2022-07-13] MEDS: OXYCODONE/ACETAMINOPHEN 5/325 TABLET 1 TAB PO (04:09)
[2022-07-13] MEDS: levoFLOXacin 750 MG/150 ML PIGGYBACK 100 MG IV (04:09)
[2022-07-13] MEDS: LEVOTHYROXINE 100 MCG TABLET PO (05:44)
[2022-07-13 06:20] LABS: Add Manual Diff / Slide Review NO; Basophils Absolute Auto 0 /uL (0-100); Basophils Percent Auto 0.3 % (0-2); Eosinophils Absolute Auto 100 /uL (0-450); Eosinophils Percent Auto 1.5 % (2-4); Hematocrit 35.3 % (36-46); Hemoglobin 12.2 g/dL (12.0-16.0); Lymphocytes Absolute Auto 1100 /uL (1100-4500); Lymphocytes Percent Auto 11.1 % (25-40); Mean Corpuscular HGB Conc 34.5 % (30-36); Mean Corpuscular Hemoglobin 31.4 PG (26-34); Mean Corpuscular Volume 90.9 fL (80-100); Monocytes Absolute Auto 900 /uL (0-900); Monocytes Percent Auto 9.6 % (3-14); Neutrophils Absolute Auto 7400 /uL (1500-7000); Neutrophils Percent Auto 77.5 % (50-75); Platelet Count 178 X10^3/uL (150-400); Red Blood Cell Count 3.89 X10^6/uL (4.0-5.2); Red Cell Distribution Width 12.5 % (11.6-14.8); White Blood Cell Count 9.5 X10^3/uL (4.5-11.0)
[2022-07-13 06:22] LABS: BUN Creatinine Ratio 34.7 (6-22); Blood Urea Nitrogen 17 mg/dL (7-17); Calcium 8.4 mg/dL (8.4-10.2); Carbon Dioxide 28 mmol/L (22-32); Chloride 95 mmol/L (98-107); Estimated Glomerular Filt Rate > 60 mL/min (>60); Glucose 131 mg/dL (80-110); HEMOLYSIS 17 (0-50); Potassium 3.2 mmol/L (3.4-5.1); Sodium 132 mmol/L (137-145)
[2022-07-13] MEDS: ACETAMINOPHEN 325 MG TABLET 650 MG PO (08:43)
[2022-07-13] MEDS: hydroCHLOROthiazide 25 MG TABLET PO (08:43)
[2022-07-13] MEDS: METOPROLOL ER 25 MG TABLET PO (08:43)
[2022-07-13] MEDS: ENOXAPARIN 40 MG/0.4 ML SYRINGE SUBCUT (08:44)
--- NOTE | 2022-07-13 09:24 | P.DS_ITS ---
History of Present Illness History of Present Illness Date Patient Seen: 07/13/22 Time Patient Seen: 09:24 Chief complaint: GLF, hit face Narrative: Per admitting provider, Keyona Paredes is an 81-year-old female with a history dementia, hyperthyroidism, hypertension, who presented to the ED following a mechanical fall at home trying to get up from the table in which she fell and hit her face with no loss of consciousness presented to the ED via her complaining of right arm pain. Patient was initially being evaluated for mechanical fall with facial trauma and right humerus fracture, when she was found have mild leukocyt osis and cxr showed mild atypical pneumonia and required oxygen.? In CT her oxygen dropped significantly and placed on 6 L nasal cannula, given Narcan and Zofran.? Patient was responsive Narcan seem to help her a little bit.? When she came back from the CT room as she was put on a non-rebreather which has been weaned down to about 2-3 L of nasal cannula.? does not report a change in behavior or cough.? In the emergency department patient also presented with mild hypertension BP 199/99, 190/80, 171/72, O2 saturations on room air dropped to 84-87%. Due to patient's dementia she is unable to participate or provide any HPI, ROS, family history, or surgical history. Patient was only able to tell me her name. At the time of admit temp 98.7?, BP 141/64, HR 68, respiratory rate of 14 patient is currently on heated high-flow at 4 L 50% O2 saturation 100%, was also contacted by the ED the patient had a run of V-tach. ABGs pH 7.342, pCO2 51.1, PO2 152, base excess 2, bicarb 27.7, TCO2 29, O2 saturation 99. WBC 15.5 with a left shift neutrophils 13,200, sodium 132, chloride 93, BUN 30, potassium 3.3, glucose 127-sofa: 2. Procalcitonin and lactate WNL, troponin WNL x2, BNP 221 negative COVID/influenza a/B/RSV. No gap noted. Patient escalated from non- rebreather to heated high-flow and increased respiratory demand repeat labs were done at 12:04 a.m. sodium 133, potassium 3.2, chloride 96, BUN 26, blood sugar 157, calcium 8.2, AST 43. EKG NSR rate [address] changes. Chest x-ray mild atypical pneumonia. Right shoulder x-ray demonstrated mildly displaced humeral neck fracture. C-spine, pelvic x-ray, head CT, and CT of face are all negative for any acute processes or fractures. CTA demonstrated scattered areas of nodularity greatest within the left upper lobe of lung, no PE. Patient admitted to ICU for sepsis without septic shock, acute respiratory failure with hypoxia, atypical pneumonia, mechanical fall with facial trauma, and right humeral fracture. Discharge Providers Provider Date of admission: 07/08/22 22:44 Discharge Date: 07/13/22 Primary care physician: Dannie Burrell MD Consults: 07/09/22 00:30 Consult to Dietitian, Adult Routine Comment: Reason For Exam: BMI 19.4 Consult to Occupational Therapy Evaluate & Treat Comment: fall RT hum fx Physician Instructions: Evaluate and treat Consult to Physical Therapy Evaluate & Treat Comment: Fall rt hum fx Physician Instructions: Evaluate and Treat Consult to Physician Routine Comment: Consulting Provider: Suleman Gallegos Reason for consultation: Rt Humerus FX Has provider been notified: No 07/09/22 13:30 Consult to Speech Therapy Evaluate & Treat Comment: aspiration? Physician Instructions: Evaluate and treat 07/12/22 12:34 Consult to Home Health Routine Comment: Reason For Exam: Home health upon DC Discharge provider: Woodrow Leavitt DO Summary Hospital Course Discharge Diagnosis: 1. Acute hypoxemic respiratory failure secondary to bacterial pneumonia, now resolved 2. Mechanical fall resulting in facial trauma and right humerus fracture 3. Dementia, chronic, present on admission 4.Hypothyroidism 5. Hypertension 6. Malnutrition, acute on chronic Hospital Course: This is an 81-year-old female with a past medical history of hypertension, hypothyroidism, and dementia who presented after mechanical fall resulting in facial trauma and a right humeral fracture. Per orthopedic recommendations management is recommended to be conservative including a sling for comfort and to begin range exercises in about 1 week. On admission she was also noted to be hypoxic, secondary to what was found to be a bacterial pneumonia. She was also malnourished, patient's malnutrition places them at high risk for medical and surgical complications because of the malnutrition in relation to sepsis with acute hypoxic respiratory failure/pneumonia and in relation to her chronic illness.? This increases the difficulty in complexity of medical management and increases the chances poor outcomes such as mortality and morbidity as well as impaired wound healing, and immune suppression. She initialy required high amounts of oxygen via heated high flow nasal cannula. Her hypoxemia resolved with antibiotic treatment and she slowly improved. She was recommended for group home facility, though her spouse wish to discharge home with home health instead. Pain relief for her humeral neck fracture was prescribed, pain was well controlled while admitted. No changes are recommended to her home medications other than the additions above at the time of discharge. Outpatient follow up with orthopedics recommended as well as PCP follow up in the next 1-2 weeks. Time Spent with Patient Time spent: Greater than 30 minutes Exam Vital Signs (past 8 hours): - 07/13/22 04:00 07/13/22 04:46 07/13/22 07:00 Temperature 97.7 F Pulse Rate 92 H Respiratory Rate 18 Blood Pressure 195/88 H 163/80 H Pulse Oximetry 95 Oxygen Delivery Method Room Air Oxygen Flow Rate 0 07/13/22 08:00 Temperature 97.3 F L Pulse Rate 93 H Respiratory Rate 18 Blood Pressure 160/70 H Pulse Oximetry 96 Oxygen Delivery Method Oxygen Flow Rate Fraction of Inspired Oxygen 21 SaO2/FiO2 Ratio 452 Oxygen Delivery Method Room Air Oxygen Flow Rate 0 Narrative Exam Narrative: GEN: more alert and awake than yesterday CV: regular rate and rhythm, no murmurs PULM: coarse breath sounds bilaterally ABD: soft, nontender, nondistended, no organomegaly EXT: warm and well perfused, R arm in sling NEURO: confused, at baseline, moving all extremities Objective Labs Result Diagrams: 07/13/22 05:49 07/13/22 05:49 Labs: Laboratory Results - last 24 hr 07/13/22 07/13/22 05:49 05:49 WBC 9.5 RBC 3.89 L Hgb 12.2 Hct 35.3 L MCV 90.9 MCH 31.4 MCHC 34.5 RDW 12.5 Plt Count 178 Neut % (Auto) 77.5 H Lymph % (Auto) 11.1 L Hood % (Auto) 9.6 Eos % (Auto) 1.5 L Baso % (Auto) 0.3 Neut # (Auto) 7400 H Lymph # (Auto) 1100 Hood # (Auto) 900 Eos # (Auto) 100 Baso # (Auto) 0 Sodium 132 L Potassium 3.2 L Chloride 95 L Carbon Dioxide 28 BUN 17 Creatinine 0.49 L Estimated GFR > 60 BUN/Creatinine Ratio 34.7 H Glucose 131 H Calcium 8.4 PFSH Medical History (Updated 07/09/22 @ 00:58 by EDWIGE Teresa-SAMI) Dementia Essential hypertension Hyperlipidemia Hypothyroidism (acquired) Surgical History History of cataract removal with insertion of prosthetic lens S/P total abdominal hysterectomy and bilateral salpingo-oophorectomy Status post breast biopsy Social History household members: spouse Smoking Status: Former smoker alcohol intake: never Discharge Plan Discharge Plan Patient Disposition: Home Health Service Provider Discharge Comment: You were admitted to the hospital with pneumonia and weakness. You improved with antibiotics. You elected for discharge home, please follow up with PCP as soon as possible upon discharge to review hospitalization. Please follow up with orthopedics as an outpatient for your arm fracture. Continue sling for comfort and work on increasing range of motion starting next week. Nursing Discharge Comment: return to ER/ call 911 if any of the following: any ground level fall or loss of consciousness. any increased pain to right shoulder, any numbness, tingling that results in discoloration of hand or arm. any fever greater than 101.F continue to use thickener for all fluids and foods that may be liquidy(soups, sauces) follow the speech therapists recommendations for swallowing w/ chin tuck and no straws. signs and symptoms of aspiration are: fever, watery eyes and nose, labored breathing and wet cough. clear throat after each bite. important for plenty of fluid intake, but monitor for that aspiration. monitor for s/s Urinary tract infection, including urinary frequency, urgency, odorous or dark/cloudy. pain control: oxycodone- try for repositioning and ice packs for pain before utilizing the narcotic, using tylenol can help and using the oxycodone is for pain > 5/10 and keep in mind it makes her drowsy and at risk for more falls or injury. it was a pleasure to meet you both, please take care of yourselves! Discharge orders & Medications Prescriptions: New oxycodone 5 mg tablet 5 mg PO Q6H PRN (Reason: pain) 7 Days Qty: 20 0RF levofloxacin 750 mg tablet 750 mg PO DAILY 3 Days Qty: 3 0RF Continued levothyroxine [Tirosint] 13 MCG capsule 100 mcg PO DAILY Qty: 0 hydrochlorothiazide 25 MG tablet 25 mg PO QDAY Qty: 0 estradiol 1 MG tablet 1 mg PO DIRECTED Qty: 0 Rx Instructions: every other day cholecalciferol (vitamin D3) [Vitamin D3] 1,000 UNIT tablet 1,000 unit PO BEDTIME Qty: 0 calcium carbonate 500 MG tablet 1 tab PO BEDTIME Qty: 0 ascorbic acid (vitamin C) 500 MG tablet 1,000 mg PO QDAY Qty: 0 metoprolol succinate 25 mg tablet extended release 24 hr 25 mg PO DAILY Label Comments: TAKE 1 TABLET BY MOUTH ONCE DAILY Centrum Women 3 tab DAILY Tylenol 1,000 mg 1,000 mg DAILY Tylenol 500 mg BEDTIME Follow up/Referrals: Dannie Burrell MD [Primary Care Provider] - Suleman Gallegos MD [Physician] - 2 Weeks (Call for follow up appointment w/ PA or Dr Gallegos in office in 2 weeks. Will get repeat xrays at that time. Can be treated nonoperatively if alignment maintained.) Diet/Activity/Treatments Diet: Diet as Tolerated Activity: As tolerated, increase ROM R shoulder in approx 4-5 days. Visit Report/Discharge Packet Stand Alone Forms: Patient Portal/API, Stroke Signs & Symptoms Discharge Data Primary Care Provider: Dannie Burrell Quality VTE Deep Vein Thrombosis/Pulmonary Embolism Present on Admission: No
--- NOTE | 2022-07-13 11:58 | OT.IP.TRT ---
Current Diagnoses Sepsis, unspecified organism (07/08/22) Occupational Therapy Treatment Note M2 OT-IP Current Condition Start: 07/10/22 13:55 Freq: Status: Active Protocol: Document 07/10/22 13:56 [facility] (Rec: 07/10/22 14:31 [facility] [id number]) Occupational Therapy Current Condition Current Condition Evaluation Date 07/10/22 Treatment Diagnosis Right humeral head fx, PNA Diagnosis Onset Date 07/08/22 Post Operative Precautions Shoulder Precautions Sling Other Precautions NWB to RUE Weight Bearing Status Weight Bearing Status Non-Weight Bearing M3 OT- IP Subjective and Pain Start: 07/10/22 13:55 Freq: Status: Active Protocol: Document 07/13/22 11:40 [facility] (Rec: 07/13/22 12:24 [facility] [id number]) OT- Subjective Occupational Therapy Visit Type Type Treatment Note Visit Start Time 11:40 Visit Stop Time 11:58 Total Visit Minutes 18 Occupational Therapy Visit Comments Patient Comments Pt too tired to get up. Patient/Caregiver Goals Pt wanting to go home. OT Pain Assessment Pain When Pain Assessed At Rest Pain Present Pain Present Pain Reported M4 OT- IP ADL's Start: 07/10/22 13:55 Freq: Status: Active Protocol: Document 07/13/22 11:40 [facility] (Rec: 07/13/22 12:24 [facility] [id number]) OT [id number] Comments OT Self-Feeding Comments Not at meal time. OT ADL-Grooming Comments OT Grooming Comments Pt will need lots of assist. OT ADL-Oral Care Comments Oral Care Comments Pt will need assist. OT ADL-Dressing General Eval Upper Body Dressing Ability Total Assistance Lower Body Dressing Ability Total Assistance Comments OT Dressing Comments Able to go over sling management with her and techniques for helping to get her dressed. OT ADL-Bathing Comments OT Bathing Comments Sponge bath more appropriate at this time. M5 OT- IP IADL's Start: 07/10/22 13:55 Freq: Status: Active Protocol: Document 07/10/22 13:56 [facility] (Rec: 07/10/22 14:31 [facility] [id number]) OT-Instrumental Activities of Daily Living Deficits IADL Deficits Identified Deficits Home Safety Awareness Awareness of Need for Assistance at Home Decreased Awareness Medication Management Medication Management Caregiver Administers Money Management Money Management Caregiver Provides Assistance Meal Preparation Meal Preparation Caregiver Provides Assist Network Support Manager Network Support Manager Caregiver Provides Assist M6 OT- IP Functional Cognition Start: 07/10/22 13:55 Freq: Status: Active Protocol: Document 07/13/22 11:40 [facility] (Rec: 07/13/22 12:24 [facility] [id number]) Cognitive Factors Limiting Selfcare Function Cognitive Ability Level of Alertness Alert Patient Orientation Name Attention Span Ability Capable of Focused Attention, Unable to Sustain Attention Ability to Follow Commands Able to Follow One Step Commands with Increased Time, Able to Follow One Step Commands with Repetition Memory Description Short Term Impaired,Working Impaired Cognitive Comments Cognitive Assessment Comments Pt is very tired. Pt's is a bit hesitant of being able to handle all his 's needs. However his son to come and assist and pt to have home health as well. M8 OT- IP Objective Assessments Start: 07/10/22 13:55 Freq: Status: Active Protocol: Document 07/10/22 13:56 [facility] (Rec: 07/10/22 14:31 [facility] [id number]) OT Gross Range of Motion Upper Extremity Range of Motion Assessment Right Impaired OT Strength Upper Extremity Strength Assessment Right Impaired Comments Strength Comments LUE grossly WFL for age and lifestyle M9 OT- IP Assessment and Plan Start: 07/10/22 13:55 Freq: Status: Active Protocol: Document 07/13/22 11:40 [facility] (Rec: 07/13/22 12:24 [facility] [id number]) OT Summary Assessment and Plan Potential Rehabilitation Potential Good Analytic Complexity at Evaluation Moderate Summary OT Impairments Pain,Range of Motion,Strength, Balance,Functional Cognition, Functional Mobility,Self- Feeding,Grooming,Dressing, Toileting,Bathing,Toilet Transfers,Shower Transfers, Activity Tolerance Progress Towards Goals Slow Progress due to Pain,Slow Progress due to Activity Tolerance,Slow Progress due to Cognition Assessment Summary Able to go over sling management , dressing and suggested to get a bedside commode or having to just change pt's briefs, sponge bathing will be easier at this time. Pt to be going home with 01/02 assist and home health. Pt has dementia and therefore per case management note a barrier for pt to have SNF. Goals Grooming Goal Standby Assistance Dressing Goal Minimal Assistance Toileting Goal Standby Assistance Bathing Goal Minimal Assistance Toilet Transfer Goal Contact Guard Assistance Shower Transfer Goal Contact Guard Assistance Days to Meet Goals 20 Frequency of Treatment Frequency Of Treatment Once a Day Treatment Plan OT Treatment Plan ADL Training,Functional Cognition Training,Functional Mobility,Patient/Family Education,Discharge Planning Discharge Recommendations OT Discharge Recommendations SNF Rehab Transportation Needs at Discharge Wheelchair/Cabulance
--- NOTE | 2022-07-13 11:58 | CM.DPNOTE ---
Discharge Planning Note: PT and OT worked with patient this morning. CG training on stairs with spouse Nigel. Reinforced with Nigel to hire private caregivers using resource booklet to help find and to contact [facility] for resource help. [facility] has referral. Faxed Discharge summary. Plan: Discharge home with spouse Nigel today. Sarah Raya RN/DCP
--- NOTE | 2022-07-13 12:34 | PT.IPTN ---
Current Diagnoses Sepsis, unspecified organism (07/08/22) Physical Therapy Treatment Note M2 PT-IP Current Condition Start: 07/09/22 16:36 Freq: NEEDED Status: Active Protocol: Document 07/09/22 15:00 AB (Rec: 07/09/22 16:52 AB [id number]) Physical Therapy Current Condition Current Condition Evaluation Date 07/09/22 Treatment Diagnosis GLF; R humeral fx; PNA; difficulty in walking Onset Date 07/08/22 M3 PT-IP Subjective Start: 07/09/22 16:36 Freq: NEEDED Status: Active Protocol: Document 07/13/22 11:40 LJ (Rec: 07/13/22 12:34 LJ [id number]) Subjective Physical Therapy Visit Type Type Treatment Note Visit Start Time 10:11 Visit Stop Time 11:36 Total Visit Minutes 85 Notes in room going over CGT Physical Therapy Visit Comments Patient Comments agreeable to do PT. in room Patient Goals go home Therapy Pain Assessment Pain When Pain Assessed During Mobility Location Right Arm Scale Used pain not specified Pain Management Techniques Distraction,Modification of Treatment,Re-positioning, Timing of Activity with Medications M4 PT-IP Mobility and Gait Start: 07/09/22 16:36 Freq: NEEDED Status: Active Protocol: Document 07/13/22 11:40 LJ (Rec: 07/13/22 12:34 LJ [id number]) PT-Bed Mobility Assessment Supine to Sit Supine to Sit Moderate Assistance,1 Person Assistance,Head of Bed Elevated,Bedrails Scooting Scooting to Edge of Bed Moderate Assistance PT-Transfer Assessment Sit to and From Stand Sit to and from Stand Minimal Assistance,1 Person Assistance,Use of Upper Extremities Equipment Transfer Assistive Device Gait Belt Orthotic/Prosthetic Devices or Brace: No Transfers Transfer Destination Bed,Toilet,Wheelchair Transfer Ability Level of Assist Minimal Assistance,Moderate Assistance,Maximum Assistance, 1 Person Assistance,2 Person Assistance,Use of Upper Extremities Comments Mobility Comments Pt reclining in bed. undergoing CGT to [place] home today, if possible. Pt required Christo with LEs and max cues to swing legs off side of bed and scoot to edge. providing assist and cues. Therapist donned gait belt and assisted pt with hh sit>standMinA max cues . Pt ambulated very, very slowly to toilet Christo with hh from and SBA from this therapist. Pt taking very tiny shuffling steps. Once pt reached the bathroom she froze for many minutes being unable to advance steps. After roughly 10 minutes standing in the doorway of the bathroom pt eventually resumed ambulation to the toilet max cues provided by . Pt sat on toilet several minutes voiding then performed her own pericare. This therapist then changed pts gown and put new brief on pt. Donned gait belt also. then assisted pt in standing from toilet. Therapist pulled up brief as assisted pt. Pt then ambulated to ~10' again taking a long time to ambulate the distance. It took several minutes for her to turn around and put her buttocks in front of the seat of the to make a safe descent. Pt then sat in and was wheeled to the stairs. Pt stood from Christo from and used her left hand on the railing to pull herself to standing. provided MaxA and max cueing as pt used left railing to ascend the stairs and right railing to descend the stairs. Navigating the stairs took ~25 mins. Pt would freeze at each step for several minutes. Pt never lost her balance and, with maxA of behind her and CGA from this therapist in front of pt, both providing max cueing, pt managed to get up and down the stairs. Pt then sat in wheelchair with max cues for hand and body placement in front of chair. Pt was wheeled back to the room where she transfered from to bed, again taking several minutes and ModA x2 and max cues to lift LEs onto bed and position properly in the bed. WC positioned close to bed rails and pt used bed rail to pull herself to standing with assist from this therapist using gait belt for lifting. She used the flaco- walker in her left hand to turn to the left to position her butttocks in front of the bed prior to sitting down. Head of bed was up when pt sat on the bed and head of bed lowered for positioning. Dependent for scooting to the head of the bed with assist provided from this therapist and using bed pad. Pt was left in bed with in room. Gait Assessment Gait Gait Assistance Required: Contact Guard Assist,1 Person Assist Distance (Feet) 25 Able to Maintain Weight Bearing Status Yes During Gait Assistive Devices Assistive Device Gait Belt,Flaco Walker Gait Deviations General Gait Pattern Decreased Stride Length, Decreased Feet Clearance, Festinating,Flexed Trunk, Narrow Based Gait,Step-to Gait Factors Limiting Gait Function Factors Limiting Gait Function Decreased Activity Tolerance, Decreased Strength,Difficulty Following Directions,Limited Range of Motion,Pain,Poor Balance,Poor Safety Awareness Comments Gait Comments see mobility section Stair Climbing Assessment Evaluation Level of Assist On Stairs Maximal Assistance,1 Person Assistance,2 Person Assistance Devices Stair Climbing Assistive Devices Left Railing,Right Railing Technique/Endurance Stair Climbing Direction Ascend and Descend Stair Climbing Technique Step to Step Number of Steps Climbed 3 Stair Climbing Set # Repetitions (reps) 1 Comments Stair Climbing Comments see mobility section PT-Balance Assessment Sitting Balance and Reactions Static Sitting Balance Ability Fair Dynamic Sitting Balance Ability Fair Standing Balance and Reactions Static Standing Balance Ability Poor Dynamic Standing Balance Ability Poor Device Used hand hold, hemiwalker M5 PT-IP Objective Assessments Start: 07/09/22 16:36 Freq: NEEDED Status: Active Protocol: Document 07/09/22 15:00 AB (Rec: 07/09/22 16:52 AB [id number]) Orientation Orientation/Cognition Level of Alertness Confusional State Orientation Name Language Function Ability Hard of Hearing Safety Awareness Decreased Safety Awareness Memory Description Short Term Impaired,Care Home Impaired Comments slow responses to questions and instructions Gross Range of Motion Lower Extremity ROM Assessment Within Functional Limits Strength Lower Extremity Strength Hip 3+/5 Knee 4-/5 Muscle Tone Muscle Tone WNL Yes M6 PT-IP Treatment Start: 07/09/22 16:36 Freq: NEEDED Status: Active Protocol: Document 07/13/22 11:40 DAKOTAH (Rec: 07/13/22 12:34 [id number]) Physical Therapy Treatment Education Education Provided Precautions,Weight Bearing Status,Safety M7 PT-IP Assessment and Plan Start: 07/09/22 16:36 Freq: NEEDED Status: Active Protocol: Document 07/13/22 11:40 DAKOTAH (Rec: 07/13/22 12:34 [id number]) PT Summary Assessment and Plan Potential Rehabilitation Potential Fair Summary Impairments Pain,ROM,Strength,Balance, Coordination,Sensation,Tone, Cognition,Bed Mobility, Transfers,Gait,Activity Tolerance Progress Towards Goals Slow Progress due to Medical Issues,Slow Progress due to Activity Tolerance Assessment Summary Pt able to complete all tasks set before her with maxA from and max cueing. She moves extremely slowly and freezes often. Her steps are very tiny and irregular and she takes very long to navigate any distance. She does best with hand hold from her rather than using a flaco in most circumstances but in situations where the cannot provide handhold she is able to use the hemiwalker to lean on. SNF recommended still at this point due to the amount of care and assist required and amount of time to complete each task. It is doubtful that the can carry the load of care by himself and if still going home will need the assist from his son and home health for safety and rehabilitation of to improve strength and function. Goals Bed Mobility Goal Moderate Assistance Gait Goal Moderate Assistance,Flaco Walker Gait Distance 25 Other Goals improve bed mobility, transfers, ambulation without AD CGA 100 ft up/down 4 steps L rail + TRANSFORMER [employer]SEMBLER CGA Days to Meet Goals 10 Frequency of Treatment Frequency Of Treatment Once a Day Treatment Plan Physical Therapy Treatment Plan Bed Mobility Training,Transfer Training,Gait Training, Therapeutic Exercise,Balance Retraining,Discharge Planning, Hot or Cold Pack,Neuromuscular Re-ed,Coordination Retraining ,Manual Therapy Other Recommendations and Next Treatment ambulation Focus Precautions Shoulder Precautions Sling Weight Bearing Status Weight Bearing Status Non-Weight Bearing Allowed Weight Bearing Amount (enter % RUE NWB or #) (%) Discharge Recommendations PT Discharge Recommendations Home with 01/02 Assist Available,Home Health,SNF Rehab
[2022-07-13] MEDS: POTASSIUM CHLORIDE 20 MEQ TAB 40 MEQ PO (13:30)
== END 2022-07-13 13:30 | disposition home health service (06) | DRG 193 ==
LOC: ED 22:37 → AC 22:45
PROVIDERS: Emergency Medicine; Family Medicine; Internal Medicine; Admitting Provider Nurse Practitioner Family; Emergency Provider Emergency Medicine; PCP Internal Medicine; Referring Provider Emergency Medicine; Visit Provider Nurse Practitioner Family
DX: J15.9 Unspecified bacterial pneumonia (principal); J96.01 Acute respiratory failure with hypoxia; S42.201A Unspecified fracture of upper end of right humerus, initial encounter for closed fracture; E87.4 Mixed disorder of acid-base balance; E44.0 Moderate protein-calorie malnutrition; Z68.1 Body mass index [BMI] 19.9 or less, adult; F03.90 Unspecified dementia, unspecified severity, without behavioral disturbance, psychotic disturbance, mood disturbance, and anxiety; E03.9 Hypothyroidism, unspecified; I10 Essential (primary) hypertension; S09.93XA Unspecified injury of face, initial encounter; W18.30XA Fall on same level, unspecified, initial encounter; Z20.822 Contact with and (suspected) exposure to COVID-19; Z87.891 Personal history of nicotine dependence
CPT/HCPCS: 0241U; 36415; 36600; 51798; 70450; 70486; 71045; 71275; 72125; 72170; 73030; 80048; 80053; 81001; 81003; 82550; 82805; 83605; 83690; 83735; 83880; 84145; 84443; 84484; 85025; 85379; 85610; 85730; 86140; 87040; 87086; 87150; 87205; 92526; 92610; 93005; 94640; 94760; 94762; 96365; 96366; 96367; 96368; 96375; 97116; 97162; 97166; 97530; 97535; 99285; J0696; J1170; J1650; J1956; J2310; J2405; J2930; J3475; Q9967